=== PATIENT | male | born 1930 | race Caucasian/White ===

== ENCOUNTER 2022-06-11 19:08 | Inpatient (IN) ==
--- NOTE | 2022-06-11 19:47 | XRay Report ---
XR chest 1V portable HISTORY: 89 years-old Male recent chf dx acute shortness of breath COMPARISON: Chest radiograph 07/27/2018 TECHNIQUE: Portable AP view of the chest FINDINGS: Cardiac silhouette is enlarged. Pulmonary vascular congestion with reticular interstitial coarsening, similar to prior. No pneumothorax. Unchanged blunting of the costophrenic angles. Degenerative santo es of the shoulders and spine. IMPRESSION: Cardiomegaly with pulmonary vascular congestion and mild diffuse reticular interstitial c oarsening, similar to prior. Findings are likely chronic, however mild interstitial pulmonary edema c ould appear similarly. ACT 112: Negative or not required by law. The above report was generated using voice recognition software. It may contain grammatical, syntax o r spelling errors. Electronically signed by: Roque Brink M.D. 06/11/2022 7:45 PM
[2022-06-11 19:55] LABS: Basophils # (auto) 0.03 K/uL (0-0.2); Basophils % (auto) 0.2 %; Hematocrit (blood only) 42.7 % (40.1-51.0); Hemoglobin 14.6 g/dl (14.0-18.0); Immature Granulocytes # (auto) 0.07 K/uL (0.00-0.02); Immature Granulocytes % (auto) 0.5 %; Lymphocytes # (auto) 2.08 K/uL (1.2-3.4); Lymphocytes % (auto) 13.5 %; Mean Corpuscular Hemoglobin 30.2 pg (25.0-34.0); Mean Corpuscular Hgb Conc 34.2 g/dL (32.0-36.0); Mean Corpuscular Volume 88.2 fL (80.0-100.0); Mean Platelet Volume 11.2 fL (9.4-12.4); Monocytes # (auto) 1.14 K/uL (0.24-0.82); Monocytes % (auto) 7.4 %; Neutrophils # (auto) 12.06 K/uL (1.4-6.5); Neutrophils % (auto) 78.4 %; Platelet Count 201 K/uL (130-400); RDW Coefficient of Variation 13.8 % (11.5-14.5); RDW Standard Deviation 44.2 fL (36.4-46.3); Red Blood Count 4.84 M/uL (4.63-6.08); White Blood Count 15.38 K/ul (4.8-10.8)
[2022-06-11 20:08] LABS: Partial Thromboplastin Time 28.2 Seconds (21.0-31.0); Prothrombin Time 11.1 Seconds (9.0-12.0)
[2022-06-11 20:22] LABS: Troponin I High Sensitivity 153.7 pg/ml (0-20)
[2022-06-11 20:27] LABS: Albumin Globulin Ratio 0.9 (0.9-2); Albumin Level 3.2 gm/dl (3.4-5.0); BUN Creatinine Ratio 18.5 (10-20); Bilirubin,Total 2.2 mg/dl (0.2-1.0); Calcium 8.9 mg/dl (8.5-10.1); Creatinine Clr Calc Pharmacy 42.3 ml/min; Est GFR (African American) 56.1 ml/min; Est GFR (Non-African American) 48.4 ml/min; Globulin 3.7 gm/dl (2.5-4.0); Potassium 3.9 mmol/L (3.5-5.1); Total Protein 6.9 gm/dl (6.0-8.3)
[2022-06-11 20:57] LABS: Appearance Urine Clear (Clear); Bacteria Urine Automated Negative (Negative); Bilirubin Urine Negative (Negative); Blood Urine 3+ (Negative); Color Urine Dark Yellow; Epithelial Cell Urine Auto 20-30 /lpf (0-5); Glucose Urine UA Negative (Negative); Ketones Urine Trace (Negative); Leukocyte Esterase Urine Trace (Negative); Nitrite Urine Negative (Negative); Protein Urine 2+ (Negative); RBC Urine Automated >30 /hpf (0-4); Specific Gravity Urine 1.023 (1.000-1.030); Urobilinogen Urine Negative (Negative); pH Urine 6.5 (4.5-7.5)
--- NOTE | 2022-06-11 21:47 | Emergency Department Note ---
Impression & Plan Fall, Dizziness, Near syncope ED Provider Note Provider: Tristan Leblanc MD DATE OF SERVICE: 06/11/2022 CHIEF COMPLAINT: Fall, dizzy HISTORY OF PRESENT ILLNESS: Patient is a 89-year-old gentleman history of atrial tachycardia, chronic stenosis, TIA in the past presenting today after a fall. P atient states that he fell upon walking into the bathroom to the ground but did not strike his head. Could not get up and had to call EMS. Patient states he has had some near syncopal episodes in the past several weeks. Denies palpitations or chest pain. Denies shortness of breath. Patient states he has scraped his knees and right mancilla a little bit but denies significant injury. Denies significant back pain or injury to the extremities. REVIEW OF SYSTEMS: A total of 10 review of systems was obtained and negative except as stated above in the HPI. PAST MEDICAL HISTORY: As noted above MEDICATIONS: Reviewed home medication list SOCIAL HISTORY: Former smoker PHYSICAL EXAM: GENERAL: alert and oriented in no acute distress on stretcher Head: normocephalic and atraumatic EYES: No injection, discharge or icterus. PERRL, EOMI. NECK: Trachea midline. Supple subcu midline tenderness. ENT: Mucous membranes pink and moist. LUNGS: Airway patent. No retractions. Breath sounds clear with good air entry bilaterally. HEART: Irregular rate and rhythm. No chest wall tenderness ABDOMEN: Soft and non-tender, without guarding or rebound. SKIN: Acyanotic, warm, dry, without rashes EXTREMITIES: Some slight abrasions to the bilateral lower knees and right mancilla. Slight edema of the right mancilla. NEUROLOGICAL: No focal deficits. No aphasia. No facial droop or slurred speech. Normal strength and tone in the extremities. Sensation to gross touch normal. Ambulatory. EK bpm believe first-degree AV block with frequent PVCs. No clear acute ST segment elevation with some nonspecific anterior T wave changes. QTC 539. CONTINUOUS CARDIAC MONITORING: was ordered and showed a heart rate of 80s-100s bpm in first-degree AV block frequent PVCs. GCS 15. Patient's laboratory studies and imaging reviewed. Differential includes Infection, dehydration, metabolic abnormality, hypo/hyperg lycemia, electrolyte disturbance, anemia, hypoxia, cardiac sources, intracerebral event, toxicologic, neurologic, as well as other pathologies. IMPRESSION/MEDICAL DECISION MAKING: Possible near syncopal events. Does not sound orthostatic in nature of his falls Denies palpitation history. No numbness or tingling at this time. Patient with some chronic leukocytosis on review of old labs. Stable renal function. Urinalysis not indicative of infection at this time. Some troponin elevation on the high-sensitivity scale. Has a slight troponin on the old scale. Unsure if this totally related strain or if chronic on high sensitivity scale. Does describe some near syncopal events. No LOC reported. CT is also questioning a possible infarct recommended further MRI. Discussed with the pat erin. Does have some cardiac arrhythmias/PVCs on telemetry here. Feel that further cardiac monitoring given his symptoms would be indicated at this time as well. Patient in agreement. Hospitalist contacted. Given a dose of aspirin. We will complete CT angiograms to evaluate vascular is a history of carotid stenosis. DIAGNOSIS: Near syncope, dizziness, fall, elevated troponin DISPOSITION: Hospitalist will evaluate Preliminary Findings Only See Final Report For Complete Findings CT HEAD: Moderate brain volume loss. Moderate chronic ischemic changes. Small ovoid shaped area of low attenuation in the mid latoya estimated to measure 11 mm transverse. No mass or hemorrhage. Sinuses, mastoids and the bones are intact. Comparison brain MRI July 28, 2018. Impression: Indeterminate changes of the brainstem. An acute to subacute infarct cannot be excluded. Recommend brain MRI for further evaluation Radiologist: Nirmal Zamarripa M.D. Study ready at 21:37 and initial results transmitted at 21:42 Preliminary Findings Only See Final Report For Complete Findings CTA HEAD: No aneurysm or large vessel occlusion. Bilateral V4 vertebral atherosclerosis and approximately 50% stenosis. Atherosclerosis bilateral cavernous ICA, less than 50% stenosis. Radiologist: Qian Hall M.D. Study ready at 23:47 and initial results transmitted at 23:56 Preliminary Findings Only See Final Report For Complete Findings CTA NECK: Moderate to severe aortic atherosclerosis. Atherosclerosis right proximal ICA, results in 70-80% stenosis axial series 4 im age 241. Left proximal ICA stenosis 50-60%, axial series 4 image 209. Distal ICA vessels normal in caliber. Patent bilateral vertebral arteries, codominant. Radiologist: Qian Hall M.D. Study ready at 23:48 and initial results transmitted at 00:10 Past Med/Surg History Medical History (Updated 06/11/22 @ 23:06 by Darnell Thurston MD) Carotid arterial disease Diabetes HLD (hyperlipidemia) HTN (hypertension) Moderate calcific aortic stenosis Surgical History S/P laparoscopic cholecystectomy Social History Smoking Status: Former smoker Hx Alcohol Use: No Hx Substance Use: No Preferred Language: [place] Communication Ability: Effective Vocational Aide Required: Yes Beliefs That Will Affect Care: None Current Living Situation: Alone Current Living Situation Comment: apartment Feels Safe at Home: Yes Safety Concerns: Feels Safe At This Time Assistive Devices: Glasses and Walker Allergies Allergies Allergy/AdvReac Type Severity Reaction Status Date / Time No Known Allergies Allergy Unknown Verified 06/11/22 22:06 Home Meds Home Medications Medication Instructions Recorded Confirmed atenolol 25 mg tablet 12.5 mg PO DAILY 06/11/22 06/11/22 atorvastatin 40 mg tablet 40 mg PO QAM 06/11/22 06/11/22 finasteride 5 mg tablet 5 mg PO DAILY 06/11/22 06/11/22 folic acid 0.8 mg capsule 0.8 mg PO DAILY 06/11/22 06/11/22 furosemide 20 mg tablet 20 mg PO MOWEFR 06/11/22 06/11/22 glipizide 2.5 mg tablet, extended 2.5 mg PO QAM 06/11/22 06/11/22 release 24 hr levothyroxine 50 mcg tablet 50 mcg PO QAM 06/11/22 06/11/22 metformin 500 mg tablet 500 mg PO BIDM 06/11/22 06/11/22 potassium chloride 10 mEq 10 meq PO MOWEFR 06/11/22 06/11/22 tablet,extended release(part/cryst) Results & Data (ED) Vital Signs Vital Signs - 24 hr 06/11/22 19:25 06/11/22 19:20 06/11/22 19:02 Temperature 36.7 C Temperature Source Oral Pulse Rate 100 H Pulse Rate from SpO2 Sensor Respiratory Rate 18 Respiratory Depth Normal Blood Pressure 115/81 Blood Pressure Mean 92 Pulse Oximetry 93 93 Oxygen Delivery Method Room Air Room Air Room Air Sepsis Recent Fever Within 48 Hours No Sepsis New/Unexplained Change in Mental Status No Sepsis Action Taken by Nursing No Action Required 06/11/22 19:14 06/11/22 19:20 06/11/22 19:30 Temperature Temperature Source Pulse Rate 102 H 100 H Pulse Rate from SpO2 Sensor 102 H 92 H Respiratory Rate 18 21 Respiratory Depth Blood Pressure 113/72 Blood Pressure Mean 85 Pulse Oximetry 97 95 Oxygen Delivery Method Sepsis Recent Fever Within 48 Hours Sepsis New/Unexplained Change in Mental Status Sepsis Action Taken by Nursing 06/11/22 19:30 06/11/22 19:40 06/11/22 19:50 Temperature Temperature Source Pulse Rate 96 H 95 H 99 H Pulse Rate from SpO2 Sensor 46 L 89 97 H Respiratory Rate 25 H 19 25 H Respiratory Depth Blood Pressure Blood Pressure Mean Pulse Oximetry 93 94 94 Oxygen Delivery Method Sepsis Recent Fever Within 48 Hours Sepsis New/Unexplained Change in Mental Status Sepsis Action Taken by Nursing 06/11/22 20:00 06/11/22 20:01 06/11/22 20:01 Temperature Temperature Source Pulse Rate 97 H 94 H Pulse Rate from SpO2 Sensor 47 L 61 Respiratory Rate 23 27 H Respiratory Depth Blood Pressure 121/62 Blood Pressure Mean 81 Pulse Oximetry 93 92 Oxygen Delivery Method Sepsis Recent Fever Within 48 Hours Sepsis New/Unexplained Change in Mental Status Sepsis Action Taken by Nursing 06/11/22 20:10 06/11/22 20:20 06/11/22 20:23 Temperature Temperature Source Pulse Rate 94 H 91 H Pulse Rate from SpO2 Sensor 98 H Respiratory Rate 25 H 16 Respiratory Depth Blood Pressure 105/72 Blood Pressure Mean 83 Pulse Oximetry 95 Oxygen Delivery Method Sepsis Recent Fever Within 48 Hours Sepsis New/Unexplained Change in Mental Status Sepsis Action Taken by Nursing 06/11/22 20:23 06/11/22 20:30 06/11/22 20:30 Temperature Temperature Source Pulse Rate 92 H 91 H Pulse Rate from SpO2 Sensor Respiratory Rate 16 22 Respiratory Depth Blood Pressure 124/64 Blood Pressure Mean 84 Pulse Oximetry Oxygen Delivery Method Sepsis Recent Fever Within 48 Hours Sepsis New/Unexplained Change in Mental Status Sepsis Action Taken by Nursing 06/11/22 20:40 06/11/22 21:09 06/11/22 21:10 Temperature Temperature Source Pulse Rate 86 123 H 98 H Pulse Rate from SpO2 Sensor 100 H 99 H Respiratory Rate 24 20 Respiratory Depth Blood Pressure Blood Pressure Mean Pulse Oximetry 97 97 Oxygen Delivery Method Sepsis Recent Fever Within 48 Hours Sepsis New/Unexplained Change in Mental Status Sepsis Action Taken by Nursing 06/11/22 21:11 06/11/22 21:11 06/11/22 21:20 Temperature Temperature Source Pulse Rate 101 H 92 H Pulse Rate from SpO2 Sensor 99 H 86 Respiratory Rate 20 19 Respiratory Depth Blood Pressure 169/96 H Blood Pressure Mean 120 Pulse Oximetry 100 96 Oxygen Delivery Method Sepsis Recent Fever Within 48 Hours Sepsis New/Unexplained Change in Mental Status Sepsis Action Taken by Nursing 06/11/22 21:30 06/11/22 21:30 06/11/22 21:40 Temperature Temperature Source Pulse Rate 90 89 Pulse Rate from SpO2 Sensor 89 88 Respiratory Rate 22 26 H Respiratory Depth Blood Pressure 136/78 Blood Pressure Mean 97 Pulse Oximetry 99 96 Oxygen Delivery Method Sepsis Recent Fever Within 48 Hours Sepsis New/Unexplained Change in Mental Status Sepsis Action Taken by Nursing 06/11/22 21:50 06/11/22 22:00 06/11/22 22:00 Temperature Temperature Source Pulse Rate 89 86 Pulse Rate from SpO2 Sensor 86 78 Respiratory Rate 24 20 Respiratory Depth Blood Pressure 106/53 L Blood Pressure Mean 70 Pulse Oximetry 98 96 Oxygen Delivery Method Sepsis Recent Fever Within 48 Hours Sepsis New/Unexplained Change in Mental Status Sepsis Action Taken by Nursing 06/11/22 22:10 06/11/22 22:20 06/11/22 22:30 Temperature Temperature Source Pulse Rate Pulse Rate from SpO2 Sensor 90 92 H 88 Respiratory Rate Respiratory Depth Blood Pressure Blood Pressure Mean Pulse Oximetry 94 96 99 Oxygen Delivery Method Sepsis Recent Fever Within 48 Hours Sepsis New/Unexplained Change in Mental Status Sepsis Action Taken by Nursing 06/11/22 22:31 06/11/22 22:31 06/11/22 22:40 Temperature Temperature Source Pulse Rate 88 Pulse Rate from SpO2 Sensor 88 Respiratory Rate Respiratory Depth Blood Pressure 88/65 L Blood Pressure Mean 72 Pulse Oximetry 99 Oxygen Delivery Method Sepsis Recent Fever Within 48 Hours Sepsis New/Unexplained Change in Mental Status Sepsis Action Taken by Nursing Laboratory Data Result diagrams: 06/11/22 19:20 06/11/22 19:20 Lab Results 06/11/22 06/11/22 06/11/22 Range/Units 19:20 19:20 19:20 WBC 15.38 H (4.8-10.8) K/ul RBC 4.84 (4.63-6.08) M/uL Hgb 14.6 (14.0-18.0) g/dl Hct 42.7 (40.1-51.0) % MCV 88.2 (80.0-100.0) fL MCH 30.2 (25.0-34.0) pg MCHC 34.2 (32.0-36.0) g/dL RDW Std Deviation 44.2 (36.4-46.3) fL RDW Coeff of [place] 13.8 (11.5-14.5) % Plt Count 201 (130-400) K/uL MPV 11.2 (9.4-12.4) fL Immature Gran % (Auto) 0.5 % Neut % (Auto) 78.4 % Lymph % (Auto) 13.5 % [place] % (Auto) 7.4 % Eos % (Auto) 0.0 % Baso % (Auto) 0.2 % Neut # (Auto) 12.06 H (1.4-6.5) K/uL Lymph # (Auto) 2.08 (1.2-3.4) K/uL [place] # (Auto) 1.14 H (0.24-0.82) K/uL Eos # (Auto) 0.00 (0-0.50) K/uL Baso # (Auto) 0.03 (0-0.2) K/uL Immature Gran # (Auto) 0.07 H (0.00-0.02) K/uL PT 11.1 (9.0-12.0) Seconds INR 1.0 (0.9-1.1) APTT 28.2 (21.0-31.0) Seconds PTT Ratio 1.0 Sodium 135 L (136-145) mmol/L Potassium 3.9 (3.5-5.1) mmol/L Chloride 98 (98-107) mmol/L Carbon Dioxide 26 (21-32) mmol/L Anion Gap 11 (3-11) BUN 24 H (6-23) mg/dl Creatinine 1.30 (0.6-1.4) mg/dl Est Cr Clr Drug Dosing 42.3 ml/min Est GFR ( Amer) 56.1 ml/min Est GFR (Non-Af Amer) 48.4 ml/min BUN/Creatinine Ratio 18.5 (10-20) Glucose 171 H (70-99(Fasting)) mg/dl Calcium 8.9 (8.5-10.1) mg/dl Total Bilirubin 2.2 H (0.2-1.0) mg/dl AST 15 (13-39) U/L ALT 11 (7-52) U/L Alkaline Phosphatase 84 (34-104) U/L Troponin I High Sens 153.7 H* (0-20) pg/ml Total Protein 6.9 (6.0-8.3) gm/dl Albumin 3.2 L (3.4-5.0) gm/dl Globulin 3.7 (2.5-4.0) gm/dl Albumin/Globulin Ratio 0.9 (0.9-2) TSH (0.300-4.500) uIu/ml Urine Color Urine Appearance (Clear) Urine pH (4.5-7.5) Ur Specific [place] (1.000-1.030) Urine Protein (Negative) Urine Glucose (UA) (Negative) Urine Ketones (Negative) Urine Blood (Negative) Urine Nitrite (Negative) Urine Bilirubin (Negative) Urine Urobilinogen (Negative) Ur Leukocyte Esterase (Negative) Urine WBC (Auto) (0-5) /hpf Urine RBC (Auto) (0-4) /hpf U Hyaline Cast (Auto) (0-5) /lpf U Epithel Cells (Auto) (0-5) /lpf Urine Bacteria (Auto) (Negative) SARS-CoV-2, RNA, NAAT (NEGATIVE) 06/11/22 06/11/22 06/11/22 Range/Units 19:20 20:18 22:40 WBC (4.8-10.8) K/ul RBC (4.63-6.08) M/uL Hgb (14.0-18.0) g/dl Hct (40.1-51.0) % MCV (80.0-100.0) fL MCH (25.0-34.0) pg MCHC (32.0-36.0) g/dL RDW Std Deviation (36.4-46.3) fL RDW Coeff of [place] (11.5-14.5) % Plt Count (130-400) K/uL MPV (9.4-12.4) fL Immature Gran % (Auto) % Neut % (Auto) % Lymph % (Auto) % [place] % (Auto) % Eos % (Auto) % Baso % (Auto) % Neut # (Auto) (1.4-6.5) K/uL Lymph # (Auto) (1.2-3.4) K/uL [place] # (Auto) (0.24-0.82) K/uL Eos # (Auto) (0-0.50) K/uL Baso # (Auto) (0-0.2) K/uL Immature Gran # (Auto) (0.00-0.02) K/uL PT (9.0-12.0) Seconds INR (0.9-1.1) APTT (21.0-31.0) Seconds PTT Ratio Sodium (136-145) mmol/L Potassium (3.5-5.1) mmol/L Chloride (98-107) mmol/L Carbon Dioxide (21-32) mmol/L Anion Gap (3-11) BUN (6-23) mg/dl Creatinine (0.6-1.4) mg/dl Est Cr Clr Drug Dosing ml/min Est GFR ( Amer) ml/min Est GFR (Non-Af Amer) ml/min BUN/Creatinine Ratio (10-20) Glucose (70-99(Fasting)) mg/dl Calcium (8.5-10.1) mg/dl Total Bilirubin (0.2-1.0) mg/dl AST (13-39) U/L ALT (7-52) U/L Alkaline Phosphatase (34-104) U/L Troponin I High Sens (0-20) pg/ml Total Protein (6.0-8.3) gm/dl Albumin (3.4-5.0) gm/dl Globulin (2.5-4.0) gm/dl Albumin/Globulin Ratio (0.9-2) TSH 4.101 (0.300-4.500) uIu/ml Urine Color Dark Yellow Urine Appearance Clear (Clear) Urine pH 6.5 (4.5-7.5) Ur Specific [place] 1.023 (1.000-1.030) Urine Protein 2+ H (Negative) Urine Glucose (UA) Negative (Negative) Urine Ketones Trace H (Negative) Urine Blood 3+ H (Negative) Urine Nitrite Negative (Negative) Urine Bilirubin Negative (Negative) Urine Urobilinogen Negative (Negative) Ur Leukocyte Esterase Trace H (Negative) Urine WBC (Auto) 1-5 (0-5) /hpf Urine RBC (Auto) >30 H (0-4) /hpf U Hyaline Cast (Auto) 5-10 H (0-5) /lpf U Epithel Cells (Auto) 20-30 H (0-5) /lpf Urine Bacteria (Auto) Negative (Negative) SARS-CoV-2, RNA, NAAT NEGATIVE (NEGATIVE) Administered Medications Lactated Ringer's (Lr) 1,000 mls @ 250 mls/hr IV .Q4H ONE Stop: 06/12/22 02:44 Last Admin: 06/12/22 00:31 Dose: 250 mls/hr Documented By: YASH Discontinued Medications Aspirin (Aspirin Chew 324 Mg) 324 mg PO NOW STA Stop: 06/11/22 22:08 Last Admin: 06/11/22 22:38 Dose: 324 mg Documented By: IVET Gadobutrol (Gadobutrol 65ml Vial) 8.5 ml IV ONCE ONE Stop: 06/11/22 23:49 Last Admin: 06/11/22 23:48 Dose: 8.5 ml Documented By: ANGELO Ioversol (Optiray 300 500ml) 114 ml IV ONCE ONE Stop: 06/11/22 23:01 Last Admin: 06/11/22 23:01 Dose: 114 ml Documented By: [facility] Imaging Data Radiologist's Impression: Chest X-Ray 06/11/22 19:32 XR chest 1V portable HISTORY: 89 years-old Male recent chf dx acute shortness of breath COMPARISON: Chest radiograph 07/27/2018 TECHNIQUE: Portable AP view of the chest FINDINGS: Cardiac silhouette is enlarged. Pulmonary vascular congestion with reticular interstitial coarsening, similar to prior. No pneumothorax. Unchanged blunting of the costophrenic angles. Degenerative changes of the shoulders and spine. IMPRESSION: Cardiomegaly with pulmonary vascular congestion and mild diffuse reticular interstitial coarsening, similar to prior. Findings are likely chronic, however mild interstitial pulmonary edema could appear similarly. ACT 112: Negative or not required by law. The above report was generated using voice recognition software. It may contain grammatical, syntax or spelling errors. Electronically signed by: Roque Brink M.D. 06/11/2022 7:45 PM Discharge Plan Visit Data Chief Complaint: Dizziness ED Provider: Tristan Leblanc Discharge Problem: Fall, Dizziness, Near syncope Patient Disposition: Admitted As Inpatient Discharge Instructions Interventions: ED Discharge Assessment Last Done: 06/12/22 00:09
[2022-06-11] MEDS ORDERED: ASPIRIN CHEW 324 MG PO STA (22:07)
[2022-06-11] MEDS ORDERED: POLYETHYLENE (MIRALAX) 17 GM PACK PO PRN (22:42)
[2022-06-11] MEDS ORDERED: ACETAMINOPHEN 325 MG TAB PO PRN (22:42)
[2022-06-11] MEDS ORDERED: NITROGLYCERIN SL 0.4 MG/TAB TAB SL PRN (22:42)
[2022-06-11] MEDS ORDERED: LACTATED RINGER'S 1,000 ML IV ONE (22:45)
[2022-06-11] MEDS ORDERED: OPTIRAY 300 500mL IV ONE (23:00)
--- NOTE | 2022-06-11 23:14 | History & Physical Report ---
Date of Service June 11, 2022 Assessment & Plan (1) Fall: Plan: - does not appear syncopal or presyncopal based on history - however, given history of and carotid stenosis will get CTA neck, TTE to evaluate progression - MRI ordered as CT head noted lesion in latoya - not likely acute infarct as patient's exam is unremarkable and nonfocal - mabye orthostatic or dehydration related as UA indicates and patient is on diuretic - RLE swelling R>L - reports outpatient negative Duplex - ordered here again - will hold BP meds and diuretic for now - orthostatic vitals - IV hydration - telemetry monitoring - consider cardiology vs neurology vs vascular sugery consult pending results of above exams (2) Carotid arterial disease: Plan: - noted in 2018 - has been asymptomatic since 2018 when he had some falls at that time - CTA head and neck pending from ED - consider vascular surgery consult if significant progression (3) Aortic stenosis: Plan: - could be contributing factor to falls - h/o of mild to moderate 2018 - IV hydration as patient is likely somewhat dehydrated and preload dependent - TTE ordered to evaluate - Cardiology consult (4) Elevated troponin: Plan: - elevated to 157, has had benign elevation in the past - ECG without ischemic changes - denies chest pain, shortness of breath, n/v - will cycle troponin, ECG - s/p ASA in ED - continue statin - telemetry monitoring - Cardiology consult (5) Leukocytosis: Plan: - unclear etiology - does not seem to have infectious symptoms - CXR without consolidation - UA negative for infection - had leukocytosis in the past without evidence of infection - will monitor for now off abx (6) HLD (hyperlipidemia): Plan: - continue statin (7) HTN (hypertension): Plan: - hold BP meds for now - orthostatics as above (8) DM2 (diabetes mellitus, type 2): Plan: - on metformin at home - hold inpatient - ISS for now - FSG AC+HS - diabetic diet (9) Hypothyroidism: Plan: - check TSH - continue levothyroxine (10) Hematuria: Plan: - noted on UA - may need outpatient work up Plan DVT ppx: heparin SC Code Status: Full Code Dispo: telemetry Darnell Thurston MD Hospital Medicine Admission and Anticipated Discharge Date Admission Date: 06/11/2022 History of Present Illness Chief Complaint: fall Primary Care Provider: Jaylan Lara MD The patient is an 89 year old man with pmh HLD, BPH, DM2, hypothyroidism, h/o recurrent falls, Carotid artery stenosis R>L (2018), mild to moderate who presented after a fall from standing while walking into his bathroom. He says that he walked into his bathroom and just feel to the ground. He reports no LOC, dizziness, light headedness, chest pain, palpitations, nausea or vomiting prior to the fall. He denies tripping or feeling weakness in his legs prior to the isi nt. He reports a similar episode about 1 week ago where he walked into the bathroom and started to fall, tried grabbing a towel railing that gave out and he fell. He denies hitting his head. For this episode, he was unable to get up off the floor and so crawled to the door and asked a neighbor for help, who called 911 and he was brought to the ED. At baseline, he has good functional status and walks to his local library 3 blocks almost every day without stopping for shortness of breath or chest pain. He current is denying any symptoms. He denies a history of CVA or LA, or HF. He does report 3 weeks of diarrhea but only on Friday, but reports no diarrhea for at least a week and a half. He denies change in appetite but reports not eating since about 11AM because he came to the hospital. Reports swelling in his right leg recently but his PCP ordered a duplex US that he reports did not show evidence of DVT. Denies any other symptoms of fever or chills, n/v/d, abdominal pain, dysuria, cough, shortness of breath, sick contacts, rashes. In the ED, vitals were significant for HR 100, BP 80-90s/60s after initial BP 115/81. Labs were significant for WBC 15, Na 135, BUN 24, Cr 1.3 (at baseline 1.3), tbili 2.2, troponin 157, UA with evidence of dehydration and hematuria. CT head was negative for hemorrhage, but showed small ovoid shaped area of low attenuation in mid latoya which could indicate acute or subacute infarct that cannot be excluded and recommend brain MRI. He was admitted to medicine for further work up and management. Allergies Allergy/AdvReac Type Severity Reaction Status Date / Time No Known Allergies Allergy Unknown Verified 06/11/22 22:06 Home Medications Medication Instructions Recorded Confirmed Type atenolol 25 mg tablet 12.5 mg PO DAILY 06/11/22 06/11/22 History atorvastatin 40 mg tablet 40 mg PO QAM 06/11/22 06/11/22 History finasteride 5 mg tablet 5 mg PO DAILY 06/11/22 06/11/22 History folic acid 0.8 mg capsule 0.8 mg PO DAILY 06/11/22 06/11/22 History furosemide 20 mg tablet 20 mg PO MOWEFR 06/11/22 06/11/22 History glipizide 2.5 mg tablet, extended 2.5 mg PO QAM 06/11/22 06/11/22 History release 24 hr levothyroxine 50 mcg tablet 50 mcg PO QAM 06/11/22 06/11/22 History metformin 500 mg tablet 500 mg PO BIDM 06/11/22 06/11/22 History potassium chloride 10 mEq 10 meq PO MOWEFR 06/11/22 06/11/22 History tablet,extended release(part/cryst) Past Med/Surg History Medical History (Updated 06/11/22 @ 23:06 by Darnell Thurston MD) Carotid arterial disease Diabetes HLD (hyperlipidemia) HTN (hypertension) Moderate calcific aortic stenosis Surgical History S/P laparoscopic cholecystectomy Social History Smoking Status: Former smoker Hx Alcohol Use: No Hx Substance Use: No Preferred Language: Albanian Communication Ability: Effective Scrubber System Attendant Required: Yes Beliefs That Will Affect Care: None Current Living Situation: Alone Feels Safe at Home: Yes Assistive Devices: Glasses and Walker Review of Systems Review of Systems: All systems reviewed & are unremarkable except as noted in Subjective Physical Exam Constitutional: WD/WN, vitals as above Eyes: PERRL, conjunctivae normal, anicteric sclerae ENMT: external ear and nose normal, oropharynx normal Neck: trachea midline, no thyromegaly Respiratory: normal respiratory effort, lungs clear to auscultation Cardiovascular: Rate/Rhythm: regular rate and regular rhythm Heart Sounds: normal S1, normal S2 and + murmur (right upper sternal border, systolic murmur); no gallop and no cardiac rub Vessels: no JVD Gastrointestinal (Abdomen): normal bowel sounds, soft, nontender, no hepatosplenomegaly Musculoskeletal: no cyanosis or clubbing, extremities motor strength 5/5 R lower extremity with trace edema, no erythema Skin: no rashes, warm and dry Neurologic: patellar DTR's 2+ bilat, sensation intact and PERRL, EOMI, accommodation nl, no face palsy, no dysarthria Psychiatric: A+Ox3, euthymic affect Results & Data Results & Data ([facility]) Vital Signs (Past 12 Hours) Vital Signs Temp Pulse Resp BP Pulse Ox O2 Del Method 06/11/22 19:02 Room Air 06/11/22 19:20 93 Room Air 06/11/22 19:25 36.7 C 100 H 18 115/81 93 Room Air Laboratory Results Short CBC 06/11/22 Range/Units 19:20 WBC 15.38 H (4.8-10.8) K/ul Hgb 14.6 (14.0-18.0) g/dl Hct 42.7 (40.1-51.0) % Plt Count 201 (130-400) K/uL BMP 06/11/22 19:20 Sodium 135 L Potassium 3.9 Chloride 98 Carbon Dioxide 26 BUN 24 H Creatinine 1.30 Glucose 171 H Calcium 8.9 Liver Function 06/11/22 Range/Units 19:20 Total Bilirubin 2.2 H (0.2-1.0) mg/dl AST 15 (13-39) U/L ALT 11 (7-52) U/L Alkaline Phosphatase 84 (34-104) U/L Albumin 3.2 L (3.4-5.0) gm/dl Urine 06/11/22 Range/Units 20:18 Urine Color Dark Yellow Urine Appearance Clear (Clear) Urine pH 6.5 (4.5-7.5) Ur Specific [place] 1.023 (1.000-1.030) Urine Protein 2+ H (Negative) Urine Glucose (UA) Negative (Negative) Diagnostic Findings Chest X-Ray 06/11/22 19:32 XR chest 1V portable HISTORY: 89 years-old Male recent chf dx acute shortness of breath COMPARISON: Chest radiograph 07/27/2018 TECHNIQUE: Portable AP view of the chest FINDINGS: Cardiac silhouette is enlarged. Pulmonary vascular congestion with reticular interstitial coarsening, similar to prior. No pneumothorax. Unchanged blunting of the costophrenic angles. Degenerative changes of the shoulders and spine. IMPRESSION: Cardiomegaly with pulmonary vascular congestion and mild diffuse reticular interstitial coarsening, similar to prior. Findings are likely chronic, however mild interstitial pulmonary edema could appear similarly. ACT 112: Negative or not required by law. The above report was generated using voice recognition software. It may contain grammatical, syntax or spelling errors. Electronically signed by: Roque Brink M.D. 06/11/2022 7:45 PM Medications Administered Current Inpatient Medications Acetaminophen (Acetaminophen 325 Mg Tab) 650 mg PO Q4H PRN PRN Reason: Pain or Fever Stop: 07/11/22 22:41 Atorvastatin Calcium (Atorvastatin 40 Mg Tab) 40 mg PO QAM [facility] Stop: 07/12/22 08:59 Finasteride (Finasteride 5 Mg Tab) 5 mg PO QAM [facility] Stop: 07/12/22 08:59 Folic Acid (Folic Acid 1 Mg Tab) 1 mg PO QAM [facility] Stop: 07/12/22 08:59 Lactated Ringer's (Lr) 1,000 mls @ 250 mls/hr IV .Q4H ONE Stop: 06/12/22 02:44 Levothyroxine Sodium (Levothyroxine Sodium 50 Mcg Tablet) 50 mcg PO DAILYBB ANGELICA Stop: 07/12/22 06:29 Nitroglycerin (Nitroglycerin Sl 0.4 Mg/Tab Tab) 0.4 mg SL Q5M PRN PRN Reason: Chest Pain Stop: 07/11/22 22:41 Polyethylene Glycol (Polyethylene (Miralax) 17 Gm Pack) 17 gm PO DAILY PRN PRN Reason: Constipation Stop: 07/11/22 22:41 Code Status & VTE Plan Code Status Full Code VTE Prophylaxis Plan VTE Prophylaxis will be ordered: Yes
[2022-06-11] MEDS ORDERED: GADOBUTROL 65ML VIAL IV ONE (23:48)
[2022-06-12 02:04] LABS: Magnesium 1.9 mg/dl (1.7-2.4); Phosphorus 3.7 mg/dl (2.5-4.9)
[2022-06-12 02:10] LABS: Troponin I High Sensitivity 260.6 pg/ml (0-20)
[2022-06-12] MEDS ORDERED: Heparin IV Adult Wt-Based Low-Dose WITH Bolus Protocol IV SCH (02:31)
[2022-06-12] MEDS ORDERED: HEPARIN SODIUM/DEXTROSE 25,000 UNITS/500 ML BAG IV SCH (02:45)
[2022-06-12] MEDS ORDERED: HEPARIN SOD (PORCINE) 1000 UNIT/ML IV ONE (03:00)
[2022-06-12] MEDS: LEVOTHYROXINE SODIUM 50 MCG TABLET PO SCH (05:22)
[2022-06-12] MEDS ORDERED: HEPARIN SOD 5,000 UNIT/0.5 ML VIAL SQ SCH (06:00)
[2022-06-12 06:57] LABS: Basophils # (auto) 0.02 K/uL (0-0.2); Basophils % (auto) 0.2 %; Eosinophils # (auto) 0.06 K/uL (0-0.50); Eosinophils % (auto) 0.5 %; Hematocrit (blood only) 41.2 % (40.1-51.0); Hemoglobin 13.8 g/dl (14.0-18.0); Immature Granulocytes # (auto) 0.09 K/uL (0.00-0.02); Immature Granulocytes % (auto) 0.8 %; Lymphocytes # (auto) 2.07 K/uL (1.2-3.4); Lymphocytes % (auto) 17.4 %; Mean Corpuscular Hemoglobin 29.9 pg (25.0-34.0); Mean Corpuscular Hgb Conc 33.5 g/dL (32.0-36.0); Mean Corpuscular Volume 89.4 fL (80.0-100.0); Mean Platelet Volume 10.9 fL (9.4-12.4); Monocytes # (auto) 0.96 K/uL (0.24-0.82); Monocytes % (auto) 8.1 %; Neutrophils # (auto) 8.67 K/uL (1.4-6.5); Platelet Count 166 K/uL (130-400); RDW Coefficient of Variation 13.7 % (11.5-14.5); RDW Standard Deviation 44.5 fL (36.4-46.3); Red Blood Count 4.61 M/uL (4.63-6.08); White Blood Count 11.87 K/ul (4.8-10.8)
--- NOTE | 2022-06-12 07:13 | CT Scan Report ---
CT OF THE HEAD WITHOUT CONTRAST CLINICAL HISTORY: dizziness COMPARISON STUDY: MRI of the brain July 28, 2018. Head CT July 27, 2018. CT DOSE: 1074.96 mGy.cm TECHNIQUE: Helical axial images of the head were obtained without IV contrast. Automated exposure con trol was utilized for the study. A dose lowering technique was utilized adhering to the principles o f ALARA. FINDINGS: No acute intracranial hemorrhage, midline shift or mass effect is present. Extensive white matter hypodensities have progressed. These favor small vessel disease. Hypodensity within the latoya m ay represent small vessel disease. The ventricular system is unremarkable. The basal cisterns are pat ent. No extra-axial collections are present. There are no findings to suggest acute dural sinus throm bosis or acute territorial infarct. No significant calvarial abnormalities are present. Visualized po rtions of the sinuses and mastoid air cells are clear. IMPRESSION: No acute intracranial findings. Extensive small vessel disease. ACT 112: Negative or not required by law. Electronically signed by: Dariusz Powers M.D. 06/12/2022 7:11 AM
[2022-06-12 07:18] LABS: Albumin Globulin Ratio 0.9 (0.9-2); Bilirubin,Total 1.7 mg/dl (0.2-1.0); Calcium 8.6 mg/dl (8.5-10.1); Creatinine Clr Calc Pharmacy 47.8 ml/min; Est GFR (Non-African American) 56.1 ml/min; Globulin 3.4 gm/dl (2.5-4.0); Magnesium 1.8 mg/dl (1.7-2.4); Phosphorus 3.6 mg/dl (2.5-4.9); Potassium 3.5 mmol/L (3.5-5.1); Total Protein 6.4 gm/dl (6.0-8.3)
--- NOTE | 2022-06-12 07:18 | Ultrasound Report ---
RIGHT LOWER EXTREMITY VENOUS DOPPLER HISTORY: R>L swelling COMPARISON STUDY: None. FINDINGS: There is normal compressibility, flow, and augmentation within the right lower extremity de ep venous system. A 2.2 x 1.1 x 2.2 cm slightly complex popliteal cyst. IMPRESSION: No DVT within the right lower extremity ACT 112: Negative or not required by law. Electronically signed by: Hernesto Allen M.D. 06/12/2022 7:16 AM
[2022-06-12 07:35] LABS: INR 1.1 (0.9-1.1); Prothrombin Time 11.5 Seconds (9.0-12.0)
--- NOTE | 2022-06-12 08:22 | Magnetic Resonance Report ---
MRI OF THE BRAIN WITHOUT AND WITH IV CONTRAST CLINICAL HISTORY: abnormal CT findings COMPARISON STUDY: MRI of the brain July 28, 2018. Head CT and CTA of the head June 11, 2022. TECHNIQUE: Utilizing a 1.5 Kyung magnet and dedicated coil, multiplanar, multiecho imaging of the br ain was performed pre and postcontrast administration. IV administration of 8.5 mL of Gadavist contr ast was uneventful. FINDINGS: There are no foci of restricted diffusion to suggest acute infarct. No acute intracranial h emorrhage, midline shift or mass effect is present. Ventricular system is unremarkable. Basal cistern s are patent. There are no extra-axial collections. Flow-voids for the major intracranial vessels are present. There is no intracranial mass or pathologic enhancement. Extensive white matter T2 hyperint ense foci suggest small vessel disease. Minimal progression since MRI of July 28, 2018. The pontin e hypodensity shown on head CT performed earlier today was due to small vessel disease. Calvarial sig nal is within normal limits. IMPRESSION: 1. No acute intracranial findings. 2. Extensive small vessel disease. The pontine hypodensity on head CT was due to small vessel disease . 3. No intracranial mass or pathologic enhancement. ACT 112: Negative or not required by law. Electronically signed by: Dariusz Powers M.D. 06/12/2022 8:19 AM
--- NOTE | 2022-06-12 08:26 | CT Scan Report ---
NECK CTA HISTORY: dizzy, ?stroke, hx stenosis TECHNIQUE: Multiaxial CT images of the neck were performed following the intravenous administration o f contrast to evaluate the major cervical vessels. Maximum intensity projection images were also obta ined. All measurements were calculated based on NASCET criteria. A dose lowering technique was utili zed adhering to the principles of ALARA. COMPARISON STUDY: None. FINDINGS: The aortic arch and proximal great vessels are widely patent. There is moderate to severe calcified plaque within the bilateral carotid bifurcations. This results in 75% focal stenosis within the distal right common carotid artery and 60-70 % stenosis within the proximal right internal carot id artery and takeoff of the right external carotid artery. There is also up to 50% focal stenosis at the distal left common carotid artery and 50% stenosis within the proximal left internal carotid art alex. The bilateral mid to distal internal carotid arteries are patent. There is moderate left and mil d right focal narrowing within the bilateral V4 segments. The remaining cervical vertebral arteries a re widely patent. IMPRESSION: 1. Bilateral carotid bifurcation stenosis as described above due to the calcified plaque. 2. Mild right and moderate left focal narrowing within the V4 segments. 3. Please refer to same day head CT for further evaluation of the cerebral arteries. ACT 112: Negative or not required by law. Electronically signed by: Hernesto Allen M.D. 06/12/2022 8:23 AM
[2022-06-12] MEDS: FOLIC ACID 1 MG TAB PO SCH (08:45)
[2022-06-12] MEDS: ATORVASTATIN 40 MG TAB PO SCH (08:45)
[2022-06-12] MEDS: FINASTERIDE 5 MG TAB PO SCH (08:45)
--- NOTE | 2022-06-12 09:56 | CT Scan Report ---
CTA ANGIOGRAPHY OF THE HEAD CLINICAL HISTORY: dizzy, ?stroke COMPARISON STUDY: MRI of the brain July 28, 2018. Head CT July 27, 2018. TECHNIQUE: Helical axial images of the head were obtained following uneventful intravenous administr ation of 114 cc of Optiray. Sagittal and coronal reconstructions were viewed as well as maximal inten sity projections on an independent 3-D workstation. Automated exposure control was utilized for the study. A dose lowering technique was utilized adhering to the principles of ALARA. FINDINGS: Please note that the head CT will be reported separately. There is moderate calcified plaqu e within the bilateral cavernous carotids without significant stenosis. There is no central vessel oc clusion. There is no intracranial aneurysm. There is moderate stenosis of the intracranial portion of the left vertebral artery. There is mild stenosis of the intracranial portion of the right vertebral artery. Basilar artery is patent. Bilateral posterior cerebral arteries are patent. IMPRESSION: 1. No central vessel occlusion. No intracranial aneurysm. 2. Moderate stenosis of the intracranial portion of the left vertebral artery. 3. Moderate plaque within bilateral cavernous carotids without significant stenosis. ACT 112: Negative or not required by law. Electronically signed by: Dariusz Powers M.D. 06/12/2022 9:54 AM
[2022-06-12 10:42] LABS: Partial Thromboplastin Ratio 2.4
[2022-06-12 10:46] LABS: Partial Thromboplastin Time 65.5 Seconds (21.0-31.0)
--- NOTE | 2022-06-12 13:14 | Cardiology Consultation ---
Date of Consultation June 12, 2022 Assessment & Plan (1) Aortic stenosis: (2) DM2 (diabetes mellitus, type 2): (3) Fall: (4) Elevated troponin: Plan I think this patient had a mechanical fall. He does have some conduction disease with a sinus rhythm and a first-degree AV block along with some PVCs and left ventricular hypertrophy on his EKG. He also by my exam most likely does have some aortic stenosis. I do not believe that any additional cardiac work-up is indicated. The patient did not seriously hurt himself. Patient should get some physical therapy while he is in the hospital. I would continue with telemetry for now. History of Present Illness Attending Physician: Ming Montano MD History of Present Illness This is a elderly 89-year-old male patient who was in his usual state of health today and ambulating to the bathroom when he had a mechanical fall. He sustained no major injuries. He has no ongoing cardiac complaints. He has had no activity related chest pain or progressive shortness of breath. No orthopnea. No syncope or presyncope. Past medical history: 1.Acute decompensated diastolic congestive heart failure signs and symptoms 2.Severe calcified aortic valve stenosis, mild aortic regurgitation 3.Mild mitral stenosis. 4.Preserved LV systolic function. 5.Moderate bilateral internal carotid artery disease 6.History of transient ischemic attack in July 2018 7.Hypertension 8.Dyslipidemia 9.Type 2 diabetes mellitus with neuropathy, stage 3 chronic kidney disease 10.Secondary hyperparathyroidism 11.Hypothyroidism 12.BPH with LUTS 13.History of kidney stones 14.B12 deficiency 15.History of multiple falls Allergies Allergy/AdvReac Type Severity Reaction Status Date / Time No Known Allergies Allergy Unknown Verified 06/11/22 22:06 Home Medications Medication Instructions Recorded Confirmed Type atenolol 25 mg tablet 12.5 mg PO DAILY 06/11/22 06/11/22 History atorvastatin 40 mg tablet 40 mg PO QAM 06/11/22 06/11/22 History finasteride 5 mg tablet 5 mg PO DAILY 06/11/22 06/11/22 History folic acid 0.8 mg capsule 0.8 mg PO DAILY 06/11/22 06/11/22 History furosemide 20 mg tablet 20 mg PO MOWEFR 06/11/22 06/11/22 History glipizide 2.5 mg tablet, extended 2.5 mg PO QAM 06/11/22 06/11/22 History release 24 hr levothyroxine 50 mcg tablet 50 mcg PO QAM 06/11/22 06/11/22 History metformin 500 mg tablet 500 mg PO BIDM 06/11/22 06/11/22 History potassium chloride 10 mEq 10 meq PO MOWEFR 06/11/22 06/11/22 History tablet,extended release(part/cryst) Patient History Medical History Carotid arterial disease Diabetes HLD (hyperlipidemia) HTN (hypertension) Moderate calcific aortic stenosis Surgical History S/P laparoscopic cholecystectomy Social History Smoking Status: Former smoker Hx Alcohol Use: No Hx Substance Use: No Preferred Language: Cook Islander Communication Ability: Effective 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 All other 10 point review of systems are negative. Physical Exam Physical Exam: General: no acute distress and stated age Head: normocephalic, no masses, lesions, tenderness or abnormalities Eyes: conjunctiva are pink and non-injected, sclera clear Neck: supple, no adenopathy, no bruits, normal jugular venous pulse, no hepatojugular reflux Chest: normal shape and normal respiratory effort Lungs: clear to auscultation and percussion Cardiac Exam: - regular rate & rhythm, systolic murmur- normal S1, normal S2 Pulses: 2(+) throughout Abdomen: abdomen soft, non-tender, no abnormal masses and no hepatosplenomegaly Musculoskeletal: no gait disturbance, no joint inflammation, no deforming arthritis Extremities: no edema and no cyanosis Neuro: grossly normal exam Results & Data ([facility]) Vital Signs (Past 12 Hours) Vital Signs Temp Pulse Pulse Resp BP Pulse Ox Pulse Ox 06/12/22 11:25 98 06/12/22 09:02 76 06/12/22 07:51 36.6 C 79 18 143/77 H 98 06/12/22 04:00 36.6 C 86 20 164/99 H 97 O2 Del Method O2 Del Method 06/12/22 11:25 Room Air 06/12/22 09:02 06/12/22 07:51 Room Air 06/12/22 04:00 Room Air Laboratory Results Laboratory Results - last 24 hr 06/11/22 06/11/22 06/11/22 19:20 19:20 19:20 WBC 15.38 H RBC 4.84 Hgb 14.6 Hct 42.7 MCV 88.2 MCH 30.2 MCHC 34.2 RDW Std Deviation 44.2 RDW Coeff of Remberto 13.8 Plt Count 201 MPV 11.2 Immature Gran % (Auto) 0.5 Neut % (Auto) 78.4 Lymph % (Auto) 13.5 Yancey % (Auto) 7.4 Eos % (Auto) 0.0 Baso % (Auto) 0.2 Neut # (Auto) 12.06 H Lymph # (Auto) 2.08 Yancey # (Auto) 1.14 H Eos # (Auto) 0.00 Baso # (Auto) 0.03 Immature Gran # (Auto) 0.07 H PT 11.1 INR 1.0 APTT 28.2 PTT Ratio 1.0 Sodium 135 L Potassium 3.9 Chloride 98 Carbon Dioxide 26 Anion Gap 11 BUN 24 H Creatinine 1.30 Est Cr Clr Drug Dosing 42.3 Est GFR ( Amer) 56.1 Est GFR (Non-Af Amer) 48.4 BUN/Creatinine Ratio 18.5 Glucose 171 H Calcium 8.9 Phosphorus Magnesium Total Bilirubin 2.2 H AST 15 ALT 11 Alkaline Phosphatase 84 Troponin I High Sens 153.7 H* Total Protein 6.9 Albumin 3.2 L Globulin 3.7 Albumin/Globulin Ratio 0.9 Procalcitonin TSH Urine Color Urine Appearance Urine pH Ur Specific Acme Urine Protein Urine Glucose (UA) Urine Ketones Urine Blood Urine Nitrite Urine Bilirubin Urine Urobilinogen Ur Leukocyte Esterase Urine WBC (Auto) Urine RBC (Auto) U Hyaline Cast (Auto) U Epithel Cells (Auto) Urine Bacteria (Auto) SARS-CoV-2, RNA, NAAT 06/11/22 06/11/22 06/11/22 19:20 20:18 22:40 WBC RBC Hgb Hct MCV MCH MCHC RDW Std Deviation RDW Coeff of Remberto Plt Count MPV Immature Gran % (Auto) Neut % (Auto) Lymph % (Auto) Yancey % (Auto) Eos % (Auto) Baso % (Auto) Neut # (Auto) Lymph # (Auto) Yancey # (Auto) Eos # (Auto) Baso # (Auto) Immature Gran # (Auto) PT INR APTT PTT Ratio Sodium Potassium Chloride Carbon Dioxide Anion Gap BUN Creatinine Est Cr Clr Drug Dosing Est GFR ( Amer) Est GFR (Non-Af Amer) BUN/Creatinine Ratio Glucose Calcium Phosphorus Magnesium Total Bilirubin AST ALT Alkaline Phosphatase Troponin I High Sens Total Protein Albumin Globulin Albumin/Globulin Ratio Procalcitonin TSH 4.101 Urine Color Dark Yellow Urine Appearance Clear Urine pH 6.5 Ur Specific Acme 1.023 Urine Protein 2+ H Urine Glucose (UA) Negative Urine Ketones Trace H Urine Blood 3+ H Urine Nitrite Negative Urine Bilirubin Negative Urine Urobilinogen Negative Ur Leukocyte Esterase Trace H Urine WBC (Auto) 1-5 Urine RBC (Auto) >30 H U Hyaline Cast (Auto) 5-10 H U Epithel Cells (Auto) 20-30 H Urine Bacteria (Auto) Negative SARS-CoV-2, RNA, NAAT NEGATIVE 06/12/22 06/12/22 06/12/22 01:18 06:32 06:32 WBC 11.87 H RBC 4.61 L Hgb 13.8 L Hct 41.2 MCV 89.4 MCH 29.9 MCHC 33.5 RDW Std Deviation 44.5 RDW Coeff of Remberto 13.7 Plt Count 166 MPV 10.9 Immature Gran % (Auto) 0.8 Neut % (Auto) 73.0 Lymph % (Auto) 17.4 Yancey % (Auto) 8.1 Eos % (Auto) 0.5 Baso % (Auto) 0.2 Neut # (Auto) 8.67 H Lymph # (Auto) 2.07 Yancey # (Auto) 0.96 H Eos # (Auto) 0.06 Baso # (Auto) 0.02 Immature Gran # (Auto) 0.09 H PT INR APTT PTT Ratio Sodium 135 L Potassium 3.5 Chloride 98 Carbon Dioxide 30 Anion Gap 7 BUN 23 Creatinine 1.15 Est Cr Clr Drug Dosing 47.8 Est GFR ( Amer) 65.0 Est GFR (Non-Af Amer) 56.1 BUN/Creatinine Ratio 20.0 Glucose 145 H Calcium 8.6 Phosphorus 3.7 3.6 Magnesium 1.9 1.8 Total Bilirubin 1.7 H AST 18 ALT 11 Alkaline Phosphatase 76 Troponin I High Sens 260.6 H* D Total Protein 6.4 Albumin 3.0 L Globulin 3.4 Albumin/Globulin Ratio 0.9 Procalcitonin TSH Urine Color Urine Appearance Urine pH Ur Specific Acme Urine Protein Urine Glucose (UA) Urine Ketones Urine Blood Urine Nitrite Urine Bilirubin Urine Urobilinogen Ur Leukocyte Esterase Urine WBC (Auto) Urine RBC (Auto) U Hyaline Cast (Auto) U Epithel Cells (Auto) Urine Bacteria (Auto) SARS-CoV-2, RNA, NAAT 06/12/22 06/12/22 06/12/22 06:32 06:32 06:32 WBC RBC Hgb Hct MCV MCH MCHC RDW Std Deviation RDW Coeff of Remberto Plt Count MPV Immature Gran % (Auto) Neut % (Auto) Lymph % (Auto) Yancey % (Auto) Eos % (Auto) Baso % (Auto) Neut # (Auto) Lymph # (Auto) Yancey # (Auto) Eos # (Auto) Baso # (Auto) Immature Gran # (Auto) PT 11.5 INR 1.1 APTT 65.5 H* PTT Ratio 2.4 Sodium Potassium Chloride Carbon Dioxide Anion Gap BUN Creatinine Est Cr Clr Drug Dosing Est GFR ( Amer) Est GFR (Non-Af Amer) BUN/Creatinine Ratio Glucose Calcium Phosphorus Magnesium Total Bilirubin AST ALT Alkaline Phosphatase Troponin I High Sens 195.9 H* D Total Protein Albumin Globulin Albumin/Globulin Ratio Procalcitonin 0.33 TSH Urine Color Urine Appearance Urine pH Ur Specific Acme Urine Protein Urine Glucose (UA) Urine Ketones Urine Blood Urine Nitrite Urine Bilirubin Urine Urobilinogen Ur Leukocyte Esterase Urine WBC (Auto) Urine RBC (Auto) U Hyaline Cast (Auto) U Epithel Cells (Auto) Urine Bacteria (Auto) SARS-CoV-2, RNA, NAAT 06/12/22 06:32 WBC RBC Hgb Hct MCV MCH MCHC RDW Std Deviation RDW Coeff of Remberto Plt Count MPV Immature Gran % (Auto) Neut % (Auto) Lymph % (Auto) Yancey % (Auto) Eos % (Auto) Baso % (Auto) Neut # (Auto) Lymph # (Auto) Yancey # (Auto) Eos # (Auto) Baso # (Auto) Immature Gran # (Auto) PT INR APTT Cancelled PTT Ratio Cancelled Sodium Potassium Chloride Carbon Dioxide Anion Gap BUN Creatinine Est Cr Clr Drug Dosing Est GFR ( Amer) Est GFR (Non-Af Amer) BUN/Creatinine Ratio Glucose Calcium Phosphorus Magnesium Total Bilirubin AST ALT Alkaline Phosphatase Troponin I High Sens Total Protein Albumin Globulin Albumin/Globulin Ratio Procalcitonin TSH Urine Color Urine Appearance Urine pH Ur Specific Acme Urine Protein Urine Glucose (UA) Urine Ketones Urine Blood Urine Nitrite Urine Bilirubin Urine Urobilinogen Ur Leukocyte Esterase Urine WBC (Auto) Urine RBC (Auto) U Hyaline Cast (Auto) U Epithel Cells (Auto) Urine Bacteria (Auto) SARS-CoV-2, RNA, NAAT Medications Administered Current Inpatient Medications Acetaminophen (Acetaminophen 325 Mg Tab) 650 mg PO Q4H PRN PRN Reason: Pain or Fever Stop: 07/11/22 22:41 Atorvastatin Calcium (Atorvastatin 40 Mg Tab) 40 mg PO QAM [facility] Stop: 07/12/22 08:59 Last Admin: 06/12/22 08:45 Dose: 40 mg Finasteride (Finasteride 5 Mg Tab) 5 mg PO QAM [facility] Stop: 07/12/22 08:59 Last Admin: 06/12/22 08:45 Dose: 5 mg Folic Acid (Folic Acid 1 Mg Tab) 1 mg PO QAM [facility] Stop: 07/12/22 08:59 Last Admin: 06/12/22 08:45 Dose: 1 mg Heparin Sodium/Dextrose (Heparin Sodium/Dextrose) 25,000 units in 500 mls @ 19 mls/hr IV .Q24H [facility]; Protocol Stop: 07/12/22 02:44 Last Titration: 06/12/22 07:03 Dose: 950 units/hr, 19 mls/hr Levothyroxine Sodium (Levothyroxine Sodium 50 Mcg Tablet) 50 mcg PO DAILYBB [facility] Stop: 07/12/22 06:29 Last Admin: 06/12/22 05:22 Dose: 50 mcg Nitroglycerin (Nitroglycerin Sl 0.4 Mg/Tab Tab) 0.4 mg SL Q5M PRN PRN Reason: Chest Pain Stop: 07/11/22 22:41 Polyethylene Glycol (Polyethylene (Miralax) 17 Gm Pack) 17 gm PO DAILY PRN PRN Reason: Constipation Stop: 07/11/22 22:41
--- NOTE | 2022-06-12 15:48 | Hospitalist Progress Note ---
Date of Service June 12, 2022 Assessment & Plan (1) Fall: Plan: per Dr. Aldana's notes with addendum: - does not appear syncopal or presyncopal based on history - however, given history of and carotid stenosis will get CTA neck, TTE to evaluate progression - MRI ordered as CT head noted lesion in latoya - not likely acute infarct as patient's exam is unremarkable and nonfocal - mabye orthostatic or dehydration related as UA indicates and patient is on diuretic - RLE swelling R>L - reports outpatient negative Duplex - ordered here again 06/12 patient feeling better overall (+) Orthostasis - given another 500cc IV NSS monitor Orthostatic VS r/o Progression of Aortic Stenosis - Echo pending CT angio head and neck: (+) BL carotid artery stenosis (+) L vertebral artery stenosis - add Aspirin 81 mg po daily continue Lipitor CVA ruled out - Brain MRI: no stroke (2) Carotid arterial disease: Plan: - noted in 2018 - has been asymptomatic since 2018 when he had some falls at that time - will consult Vascular Surgery (3) Aortic stenosis: Plan: - could be contributing factor to falls - h/o of mild to moderate 2018 06/12 gentle IV hydration Echo: pending (4) Elevated troponin: Plan: - elevated to 157, has had benign elevation in the past - ECG without ischemic changes - denies chest pain, shortness of breath, n/v - trending down (5) Leukocytosis: Plan: - unclear etiology - does not seem to have infectious symptoms - CXR without consolidation - UA negative for infection trending down no focus of infection identified at this time (6) HLD (hyperlipidemia): Plan: - continue statin (7) HTN (hypertension): Plan: - hold BP meds for now - orthostatics as above BP on the low side Atenolol on hold (8) DM2 (diabetes mellitus, type 2): Plan: - on metformin at home - hold inpatient - ISS for now - FSG AC+HS - diabetic diet (9) Hypothyroidism: Plan: TSH normal - continue levothyroxine (10) Hematuria: Plan: - noted on UA - outpatient work up Plan DVT ppx: heparin SC Code Status: Full Code Dispo: PT recommends return to home when medically stable Admission and Anticipated Discharge Date Admission Date: June 11, 2022 Subjective ff up for fall, etc seen resting in bed, comfortable in good spirits denies any pain no chest pain, dyspnea, palpitations, dizziness states he feels better overall no other symptoms Review of Systems Review of Systems: all noted and negative except for above Physical Exam Physical Exam: General- oriented x 3, not in distress, speaks in sentences with no effort or accessory muscle use Head- atraumatic Eyes- PERRL, EOMI, anicteric ENT- oropharynx clear Neck- supple, no JVD, no adenopathy, no thyromegaly; carotids +2/2, no bruits appreciated Lungs- clear to auscultation bilaterally, no rales/wheezes Heart- normal rate, regular rhythm; (+) grade 3/6 holosystolic murmur, no gallop, no rub appreciated Abdomen- normal bowel sounds, nondistended, soft, nontender, no masses or hepatosplenomegaly Extremities- no pretibial edema, no calf tenderness; peripheral pulses intact Neuro- alert, oriented x 3; CN 2-12 grossly intact; motor 5/5 bilaterally;sensation 100% on all extremities; no other gross focal neurologic deficits Skin- warm & dry Results & Data Results & Data ([facility]) Vital Signs (Past 12 Hours) Vital Signs Temp Pulse Pulse Resp BP Pulse Ox Pulse Ox 06/12/22 15:42 37.3 C 81 18 106/56 L 97 06/12/22 15:35 99 H 06/12/22 11:25 98 06/12/22 09:02 76 06/12/22 07:51 36.6 C 79 18 143/77 H 98 06/12/22 04:00 36.6 C 86 20 164/99 H 97 O2 Del Method O2 Del Method 06/12/22 15:42 Room Air 06/12/22 15:35 06/12/22 11:25 Room Air 06/12/22 09:02 06/12/22 07:51 Room Air 06/12/22 04:00 Room Air all noted and reviewed including below
--- NOTE | 2022-06-12 17:45 | Electrocardiogram Report ---
Test Reason : Blood Pressure : / mmHG Vent. Rate : 103 BPM Atrial Rate : 103 BPM P-R Int : 000 ms QRS Dur : 094 ms QT Int : 412 ms P-R-T Axes : 000 -16 130 degrees QTc Int : 539 ms Sinus rhythm with 1st degree AV block and PVCs Left ventricular hypertrophy with repolarization abnormality Prolonged QT Abnormal ECG When compared with ECG of 28-JUL-2018 07:21, ST now depressed in Lateral leads T wave inversion now evident in Anterolateral leads Confirmed by Nicola Cade ([id number]) on 06/12/2022 5:44:57 PM Referred By: REFERRED SELF Confirmed By:Jona Cade
[2022-06-13] MEDS: LEVOTHYROXINE SODIUM 50 MCG TABLET PO SCH (06:03)
--- NOTE | 2022-06-13 06:13 | Electrocardiogram Report ---
Test Reason : Blood Pressure : / mmHG Vent. Rate : 082 BPM Atrial Rate : 082 BPM P-R Int : 272 ms QRS Dur : 100 ms QT Int : 440 ms P-R-T Axes : 083 003 156 degrees QTc Int : 514 ms Sinus rhythm with 1st degree A-V block with occasional Premature ventricular complexes Left ventricular hypertrophy with repolarization abnormality Prolonged QT Abnormal ECG When compared with ECG of 11-JUN-2022 19:12, T wave inversion now evident in Anterolateral leads Confirmed by Gio Valenzuela ([id number]) on 06/13/2022 6:13:01 AM Referred By: REFERRED SELF Confirmed By:Gio Valenzuela
[2022-06-13] MEDS: ATORVASTATIN 40 MG TAB PO SCH (08:15)
[2022-06-13] MEDS: ASPIRIN 81 MG ECTAB PO SCH (08:15)
[2022-06-13] MEDS: FINASTERIDE 5 MG TAB PO SCH (08:15)
[2022-06-13] MEDS: FOLIC ACID 1 MG TAB PO SCH (08:15)
--- NOTE | 2022-06-13 10:23 | Cardiology Progress Note ---
Date of Service June 13, 2022 Assessment & Plan (1) Aortic stenosis: (2) DM2 (diabetes mellitus, type 2): (3) Fall: (4) Elevated troponin: Plan The patient's telemetry has been stable for the past 24 hours. At this point I think no additional cardiac testing or treatment is indicated. The patient can be discharged per the hospitalist service. Admission and Anticipated Discharge Date Admission Date: June 11, 2022 Subjective The patient has no cardiac complaints today. He is resting comfortably in a chair. Review of Systems Review of Systems: Review of Systems: See HPI for pertinent positives. All other 10 point review of systems are negative. Physical Exam Physical Exam: General: no acute distress and stated age Head: normocephalic, no masses, lesions, tenderness or abnormalities Eyes: conjunctiva are pink and non-injected, sclera clear Neck: supple, no adenopathy, no bruits, normal jugular venous pulse, no hepatojugular reflux Chest: normal shape and normal respiratory effort Lungs: clear to auscultation and percussion Cardiac Exam: - regular rate & rhythm, systolic murmur- normal S1, normal S2 Pulses: 2(+) throughout Abdomen: abdomen soft, non-tender, no abnormal masses and no hepatosplenomegaly Musculoskeletal: no gait disturbance, no joint inflammation, no deforming arthritis Extremities: no edema and no cyanosis Neuro: grossly normal exam Results & Data ([facility]) Vital Signs (Past 12 Hours) Vital Signs Temp Pulse Pulse Resp BP Pulse Ox O2 Del Method 06/13/22 07:41 36.5 C 77 18 108/63 96 Room Air 06/13/22 07:13 85 06/13/22 04:01 36.9 C 84 18 101/58 L 97 Room Air 06/12/22 23:00 37.6 C Laboratory Results Laboratory Results - last 24 hr 06/12/22 06:32 APTT 65.5 H* PTT Ratio 2.4 Medications Administered Current Inpatient Medications Acetaminophen (Acetaminophen 325 Mg Tab) 650 mg PO Q4H PRN PRN Reason: Pain or Fever Stop: 07/11/22 22:41 Aspirin (Aspirin 81 Mg Ectab) 81 mg PO [facility] Stop: 07/13/22 08:59 Last Admin: 06/13/22 08:15 Dose: 81 mg Atorvastatin Calcium (Atorvastatin 40 Mg Tab) [facility] [place] Stop: 07/12/22 08:59 Last Admin: 06/13/22 08:15 Dose: 40 mg Finasteride (Finasteride 5 Mg Tab) 5 mg PO QAM [facility] Stop: 07/12/22 08:59 Last Admin: 06/13/22 08:15 Dose: 5 mg Folic Acid (Folic Acid 1 Mg Tab) 1 mg PO QAM [facility] Stop: 07/12/22 08:59 Last Admin: 06/13/22 08:15 Dose: 1 mg Levothyroxine Sodium (Levothyroxine Sodium 50 Mcg Tablet) [facility]: 07/12/22 06:29 Last Admin: 06/13/22 06:03 Dose: 50 mcg Nitroglycerin (Nitroglycerin Sl 0.4 Mg/Tab Tab) 0.4 mg SL Q5M PRN PRN Reason: Chest Pain Stop: 07/11/22 22:41 Polyethylene Glycol (Polyethylene (Miralax) 17 Gm Pack) 17 gm PO DAILY PRN PRN Reason: Constipation Stop: 07/11/22 22:41
--- NOTE | 2022-06-13 12:53 | XRay Report ---
XR knee RT 1 or 2V routine HISTORY: 89 years-old Male pain, r/o fractures, s/p fall acute right knee pain status post fall COMPARISON: None TECHNIQUE: 2 views of the right knee FINDINGS: Chondrocalcinosis. Mild lateral with moderate medial and patellofemoral compartment osteoarthritis. A rterial calcifications. Small joint effusion. Mild circumferential soft tissue prominence. No acute f racture or dislocation. IMPRESSION: Small joint effusion without acute fracture or dislocation. ACT 112: Negative or not required by law. The above report was generated using voice recognition software. It may contain grammatical, syntax o r spelling errors. Electronically signed by: Roque Brink M.D. 06/13/2022 12:51 PM
--- NOTE | 2022-06-13 19:23 | Hospitalist Progress Note ---
Date of Service June 13, 2022 Assessment & Plan (1) Fall: Plan: per Dr. Aldana's notes with addendum: - does not appear syncopal or presyncopal based on history - however, given history of and carotid stenosis will get CTA neck, TTE to evaluate progression - MRI ordered as CT head noted lesion in latoya - not likely acute infarct as patient's exam is unremarkable and nonfocal - mabye orthostatic or dehydration related as UA indicates and patient is on diuretic - RLE swelling R>L - reports outpatient negative Duplex - ordered here again 06/13 patient feeling better overall (+) Orthostasis, resolved - given gentle IV NSS - d/c Atenolol per Cardio continue Lasix 20mg po mwf Progression of Aortic Stenosis - Echo: severe calcific aortic stenosis no intervention at this time per Cardiology maintain good hydration at home CT angio head and neck: (+) BL carotid artery stenosis (+) L vertebral artery stenosis - added Aspirin 81 mg po daily continue Lipitor CVA ruled out - Brain MRI: no stroke (2) Carotid arterial disease: Plan: - noted in 2018 - has been asymptomatic since 2018 when he had some falls at that time - consulted Vascular Surgery (3) Aortic stenosis: Plan: - could be contributing factor to falls - h/o of mild to moderate 2018 per above (4) Elevated troponin: Plan: - elevated to 157, has had benign elevation in the past - ECG without ischemic changes - denies chest pain, shortness of breath, n/v - trended down (5) Leukocytosis: Plan: - unclear etiology - does not seem to have infectious symptoms - CXR without consolidation - UA negative for infection trending down no focus of infection identified at this time (6) HLD (hyperlipidemia): Plan: - continue statin (7) HTN (hypertension): Plan: - hold BP meds for now - orthostatics as above BP on the low side Atenolol on hold (8) DM2 (diabetes mellitus, type 2): Plan: - on metformin at home - hold inpatient - ISS for now - FSG AC+HS - diabetic diet (9) Hypothyroidism: Plan: TSH normal - continue levothyroxine (10) Hematuria: Plan: - noted on UA - outpatient work up Plan DVT ppx: heparin SC Code Status: Full Code Dispo: anticipate d/c home tomorrow Admission and Anticipated Discharge Date Admission Date: June 11, 2022 Subjective ff up for fall, etc seen resting in bedside chair, comfortable in good spirits states he feels fine overall no chest pain, dyspnea, palpitations, dizziness ambulating in the bathroom with no dizziness or symptoms no other symptoms Review of Systems Review of Systems: all noted and negative except for above Physical Exam Physical Exam: General- oriented x 3, not in distress, speaks in sentences with no effort or accessory muscle use Eyes- anicteric Neck- no JVD Lungs- clear BS bilaterally, no rales/wheezes Heart- normal rate, regular rhythm; (+) gr 3/6 murmur Abdomen- normal bowel sounds, nondistended, soft, nontender Extremities- no pretibial edema, no calf tenderness Neuro- alert, oriented x 3; no gross focal neurologic deficits Skin- warm & dry Results & Data Results & Data ([facility]) Vital Signs (Past 12 Hours) Vital Signs Temp Pulse Pulse Resp BP BP Pulse Ox 06/13/22 18:26 37.0 C 87 18 101/63 98 06/13/22 15:38 80 06/13/22 14:53 37.1 C 82 20 94/53 L 94 06/13/22 11:43 36.4 C L 85 20 104/69 99 06/13/22 07:41 36.5 C 77 18 108/63 96 O2 Del Method 06/13/22 18:26 Room Air 06/13/22 15:38 06/13/22 14:53 Room Air 06/13/22 11:43 Room Air 06/13/22 07:41 Room Air all noted and reviewed including below
[2022-06-14] MEDS: LEVOTHYROXINE SODIUM 50 MCG TABLET PO SCH (06:08)
[2022-06-14 07:36] LABS: Hematocrit (blood only) 38.9 % (40.1-51.0); Mean Corpuscular Hemoglobin 29.8 pg (25.0-34.0); Mean Corpuscular Hgb Conc 33.4 g/dL (32.0-36.0); Mean Corpuscular Volume 89.2 fL (80.0-100.0); Mean Platelet Volume 10.4 fL (9.4-12.4); Platelet Count 176 K/uL (130-400); RDW Coefficient of Variation 13.5 % (11.5-14.5); Red Blood Count 4.36 M/uL (4.63-6.08); White Blood Count 7.32 K/ul (4.8-10.8)
--- NOTE | 2022-06-14 09:02 | Hospitalist Progress Note ---
Date of Service June 14, 2022 Assessment & Plan (1) Fall: Plan: 06/14 fall not associated with any prodrome patient feeling better overall (+) Orthostasis, resolved - given gentle IV NSS - d/c Atenolol per Cardio continue Lasix 20mg po mwf Progression of Aortic Stenosis - Echo: severe calcific aortic stenosis no intervention at this time per Cardiology maintain good hydration at home CT angio head and neck: (+) BL carotid artery stenosis (+) L vertebral artery stenosis - added Aspirin 81 mg po daily continue Lipitor CVA ruled out - Brain MRI: no stroke 1. No acute intracranial findings. 2. Extensive small vessel disease. The pontine hypodensity on head CT was due to small vessel disease. 3. No intracranial mass or pathologic enhancement. (2) Carotid arterial disease: Plan: - noted in 2018 - has been asymptomatic since 2018 when he had some falls at that time Ct angio head and neck: 1. No central vessel occlusion. No intracranial aneurysm. 2. Moderate stenosis of the intracranial portion of the left vertebral artery. 3. Moderate plaque within bilateral cavernous carotids without significant stenosis. FINDINGS: The aortic arch and proximal great vessels are widely patent. There is moderate to severe calcified plaque within the bilateral carotid bifurcations. This results in 75% focal stenosis within the distal right common carotid artery and 60-70 % stenosis within the proximal right internal carotid artery and takeoff of the right external carotid artery. There is also up to 50% focal stenosis at the distal left common carotid artery and 50% stenosis within the proximal left internal carotid artery. The bilateral mid to distal internal carotid arteries are patent. There is moderate left and mild right focal narrowing within the bilateral V4 segments. The remaining cervical vertebral arteries are widely patent. IMPRESSION: 1. Bilateral carotid bifurcation stenosis as described above due to the calcified plaque. 2. Mild right and moderate left focal narrowing within the V4 segments. 3. Please refer to same day head CT for further evaluation of the cerebral arteries. -- Aspirin 81mg po daily started continue Lipitor -- outpatient vascular surgery evaluation (3) Aortic stenosis: Plan: per above (4) Elevated troponin: Plan: - elevated to 157, has had benign elevation in the past - ECG without ischemic changes - denies chest pain, shortness of breath, n/v - trended down no further cardiac testing at this point per Dr. Ramirez (5) Leukocytosis: Plan: - unclear etiology - does not seem to have infectious symptoms - CXR without consolidation - UA negative for infection trended down no focus of infection identified at this time (6) HLD (hyperlipidemia): Plan: - continue statin (7) HTN (hypertension): Plan: BP on the low side Atenolol discontinued monitor as outpatient (8) DM2 (diabetes mellitus, type 2): Plan: - on metformin at home a1c 8.1 (9) Hypothyroidism: Plan: TSH normal - continue levothyroxine (10) Hematuria: Plan: - noted on UA - outpatient work up Plan DVT ppx: heparin SC Code Status: Full Code Dispo: Discharge to home with home health services Follow-up with primary care physician in 1 week Referred to vascular surgery Follow-up with cardiology Admission and Anticipated Discharge Date Admission Date: June 11, 2022 Subjective ff up for fall, etc seen resting in bedside chair, comfortable in good spirits states he feels fine overall no dizziness, presyncope/syncope no chest pain, dyspnea, palpitations ambulating in the room with no problems no other symptoms states he is ready for discharge today Review of Systems Review of Systems: all noted and negative except for above Physical Exam Physical Exam: General- oriented x 3, not in distress, speaks in sentences with no effort or accessory muscle use Eyes- anicteric Neck- no JVD Lungs- clear BS BL Heart- normal rate, regular rhythm; gr 3/6 murmur Abdomen- normal bowel sounds, nondistended, soft, nontender Extremities- no pretibial edema, no calf tenderness Neuro- alert, oriented x 3; no gross focal neurologic deficits Skin- warm & dry Results & Data Results & Data ([facility]) Vital Signs (Past 12 Hours) Vital Signs Temp Pulse Pulse Pulse Resp BP BP 06/14/22 07:58 37.0 C 85 18 137/77 06/14/22 04:02 37.1 C 69 69 18 137/75 06/13/22 22:30 92 H 06/13/22 23:00 36.4 C 92 H 18 125/93 Pulse Ox O2 Del Method 06/14/22 07:58 95 Room Air 06/14/22 04:02 95 Room Air 06/13/22 22:30 06/13/22 23:00 97 Room Air all noted and reviewed including below
--- NOTE | 2022-06-14 09:18 | Discharge Summary ---
Date of Service June 14, 2022 Admission HPI Per Admitting Provider The patient is an 89 year old man with pmh HLD, BPH, DM2, hypothyroidism, h/o recurrent falls, Carotid artery stenosis R>L (2018), mild to moderate who presented after a fall from standing while walking into his bathroom. He says that he walked into his bathroom and just feel to the ground. He reports no LOC, dizziness, light headedness, chest pain, palpitations, nausea or vomiting prior to the fall. He denies tripping or feeling weakness in his legs prior to the event. He reports a similar episode about 1 week ago where he walked into the bathroom and started to fall, tried grabbing a towel railing that gave out and he fell. He denies hitting his head. For this episode, he was unable to get up off the floor and so crawled to the door and asked a neighbor for help, who called 911 and he was brought to the ED. At baseline, he has good functional status and walks to his local library 3 blocks almost every day without stopping for shortness of breath or chest pain. He current is denying any symptoms. He denies a history of CVA or RI, or HF. He does report 3 weeks of diarrhea but only on Friday, but reports no diarrhea for at least a week and a half. He denies change in appetite but reports not eating since about 11AM because he came to the hospital. Reports swelling in his right leg recently but his PCP ordered a duplex US that he reports did not show evidence of DVT. Denies any other symptoms of fever or chills, n/v/d, abdominal pain, dysuria, cough, shortness of breath, sick contacts, rashes. In the ED, vitals were significant for HR 100, BP 80-90s/60s after initial BP 115/81. Labs were significant for WBC 15, Na 135, BUN 24, Cr 1.3 (at baseline 1.3), tbili 2.2, troponin 157, UA with evidence of dehydration and hematuria. CT head was negative for hemorrhage, but showed small ovoid shaped area of low attenuation in mid latoya which could indicate acute or subacute infarct that cannot be excluded and recommend brain MRI. He was admitted to medicine for further work up and management. Discharge Data Allergies Allergy/AdvReac Type Severity Reaction Status Date / Time No Known Allergies Allergy Unknown Verified 06/11/22 22:06 Consultations 06/11/22 22:41 ED Decision to Admit Stat 06/11/22 23:12 Consult Cardiology Routine 06/12/22 16:24 Consult Vascular Surgery Routine Ordered Studies 06/11/22 20:24 CT head/brain wo con Urgent 06/11/22 22:08 CT angio head w con Urgent CT angio neck with con Urgent 06/11/22 22:47 US venous duplex leg [US venous doppler LE RT] Urgent 06/11/22 23:14 MRI Brain [MR brain wo/w con] Stat Hospital Course (1) Fall: 06/14 fall not associated with any prodrome patient feeling better overall (+) Orthostasis, resolved - given gentle IV NSS - d/c Atenolol per Cardio continue Lasix 20mg po mwf Progression of Aortic Stenosis - Echo: severe calcific aortic stenosis no intervention at this time per Cardiology maintain good hydration at home CT angio head and neck: (+) BL carotid artery stenosis (+) L vertebral artery stenosis - added Aspirin 81 mg po daily continue Lipitor CVA ruled out - Brain MRI: no stroke 1. No acute intracranial findings. 2. Extensive small vessel disease. The pontine hypodensity on head CT was due to small vessel disease. 3. No intracranial mass or pathologic enhancement. (2) Carotid arterial disease: - noted in 2018 - has been asymptomatic since 2018 when he had some falls at that time Ct angio head and neck: 1. No central vessel occlusion. No intracranial aneurysm. 2. Moderate stenosis of the intracranial portion of the left vertebral artery. 3. Moderate plaque within bilateral cavernous carotids without significant stenosis. FINDINGS: The aortic arch and proximal great vessels are widely patent. There is moderate to severe calcified plaque within the bilateral carotid bifurcations. This results in 75% focal stenosis within the distal right common carotid artery and 60-70 % stenosis within the proximal right internal carotid artery and takeoff of the right external carotid artery. There is also up to 50% focal stenosis at the distal left common carotid artery and 50% stenosis within the proximal left internal carotid artery. The bilateral mid to distal internal carotid arteries are patent. There is moderate left and mild right focal narrowing within the bilateral V4 segments. The remaining cervical vertebral arteries are widely patent. IMPRESSION: 1. Bilateral carotid bifurcation stenosis as described above due to the calcified plaque. 2. Mild right and moderate left focal narrowing within the V4 segments. 3. Please refer to same day head CT for further evaluation of the cerebral arteries. -- Aspirin 81mg po daily started continue Lipitor -- outpatient vascular surgery evaluation (3) Aortic stenosis: per above (4) Elevated troponin: - elevated to 157, has had benign elevation in the past - ECG without ischemic changes - denies chest pain, shortness of breath, n/v - trended down no further cardiac testing at this point per Dr. Ramirez (5) Leukocytosis: - unclear etiology - does not seem to have infectious symptoms - CXR without consolidation - UA negative for infection trended down no focus of infection identified at this time (6) HLD (hyperlipidemia): - continue statin (7) HTN (hypertension): BP on the low side Atenolol discontinued monitor as outpatient (8) DM2 (diabetes mellitus, type 2): - on metformin at home a1c 8.1 (9) Hypothyroidism: TSH normal - continue levothyroxine (10) Hematuria: - noted on UA - outpatient work up Plan DVT ppx: heparin SC Code Status: Full Code Dispo: Discharge to home with home health services Follow-up with primary care physician in 1 week Referred to vascular surgery Follow-up with cardiology Discharge Plan Discharge Items Reason For Visit: FALL Discharge Diagnosis: Fall Acute stroke ruled out Acute coronary syndrome ruled out Activity: Resume your previous activity Activity Comment: Always ambulate carefully with your walker Driving/Machine Use: No driving until reevaluated and allowed by your primary care physician Non-emergency contact: Primary Care Provider Call non-emergency contact if: you have any medication questions, your symptoms worsen, your pain is not controlled, your pain is worsening, your pain is unusual for you, your pain is concerning for you and you have a fever Follow-up/Referrals: Alin Denney DO [Senior Web Analyst] - (Date & Time 06/27/2022 1:00 PM Provider Alin Denney DO Department Cardiology [facility] ) Jaylan Lara MD [Primary Care Provider] - (Date & Time 06/19/2022 11:10 AM Provider Brooklyn Coreas DO Department Family Medicine [facility] ) Diet: Carb Consistent or DM2 Addtl Attending Provider Instructions: PLEASE REFER TO YOUR NEW MEDICATION LIST AND FOLLOW INSTRUCTIONS CAREFULLY. YOUR NEW MEDICATIONS INCLUDE: Aspirin 81 mg daily -for stroke prevention, always take aspirin with a full stomach to prevent stomach ulcers Stop taking Atenolol. Always remain well-hydrated. Drink at least 6 cups of water per day. PLEASE CALL YOUR PRIMARY CARE PHYSICIAN OR RETURN TO THE ER IF WITH WORSENING OF SYMPTOMS, INCLUDING Dizziness, weakness, chest pain, shortness of breath. FOLLOW UP WITH PRIMARY CARE PHYSICIAN OUTLINED ABOVE. Follow-up with the cut and print machine operator as scheduled above. You need to be referred to a vascular surgeon. Your primary care physician can help set up an appointment. Pending Studies at Discharge: No Stand-Alone Forms: [employer] [place], Smoking Cessation Medications and DC Order Prescriptions: New aspirin 81 mg Tablet,Delayed Release (Dr/Ec) 81 mg PO QAM 30 Days Qty: 30 2RF Rx Instructions: Always take with a full stomach. Continued atorvastatin 40 mg tablet 40 mg PO QAM metformin 500 mg tablet 500 mg PO BIDM glipizide 2.5 mg tablet extended release 24hr 2.5 mg PO QAM levothyroxine 50 mcg tablet 50 mcg PO QAM furosemide 20 mg tablet 20 mg PO MOWEFR finasteride 5 mg tablet 5 mg PO DAILY potassium chloride 10 mEq tablet,ER particles/crystals 10 meq PO MOWEFR folic acid 0.8 mg Capsule 0.8 mg PO DAILY Discontinued atenolol 25 mg tablet 12.5 mg PO DAILY Admission Data Admit Date/Time: 06/11/22 22:42 Attending Provider: Ming Montano Admit Provider: Darnell Thurston Primary Care Provider: Jaylan Lara Other Providers: Darnell Thurston ; Frankie Ramirez ; Louie Pompa ; Tico Bernal [facility]
[2022-06-14] MEDS: FINASTERIDE 5 MG TAB PO SCH (09:47)
[2022-06-14] MEDS: ASPIRIN 81 MG ECTAB PO SCH (09:47)
[2022-06-14] MEDS: ATORVASTATIN 40 MG TAB PO SCH (09:47)
[2022-06-14] MEDS: FOLIC ACID 1 MG TAB PO SCH (09:48)
--- NOTE | 2022-06-14 11:24 | Consultation ---
Date of Consultation June 14, 2022 Assessment & Plan (1) Carotid arterial disease: Pt with BL ICA stenosis, R side 70%, L side 50% by CTA, but appears asymptomatic. After discussion with Dr Pompa, he recommends pt undergo reeval in 6 months with a carotid US. Office will call to schedule. No indications for vascular surgical intervention at this time. Pt in agreement to this plan. Please call if needed. History of Present Illness Reason for Consultation: carotid stenosis Attending Physician: Ming Montano MD History of Present Illness 89 yo m with hx of , DMII, HTN, hyperlipidemia, hypothyroidism, carotid stenosis, admitted after a mechanical fall at home, seen in consultation today for carotid stenosis. Pt states this is the second fall he has had in about 3 weeks. Denies near syncope, LINDSAY, dizziness, amaurosis, unilateral extremity weakness numbness or tingling, difficulty speaking, or confusion. States no LOC and was able to crawl to the door of his apartment and yell for help. Did have a few episodes of diarrhea in the past few weeks. Denies fever, recent illness, chest pain, SOB, abd pain, N/V, rest pain, claudication, other complaints. CTA neck demonstrates approx 70% R ICA, and approx 50% L ICA. MRI demonstrates small vessel disease, but no infarct. Allergies Allergy/AdvReac Type Severity Reaction Status Date / Time No Known Allergies Allergy Unknown Verified 06/11/22 22:06 Home Medications Medication Instructions Recorded Confirmed Type atenolol 25 mg tablet 12.5 mg PO DAILY 06/11/22 06/11/22 History atorvastatin 40 mg tablet 40 mg PO QAM 06/11/22 06/11/22 History finasteride 5 mg tablet 5 mg PO DAILY 06/11/22 06/11/22 History folic acid 0.8 mg capsule 0.8 mg PO DAILY 06/11/22 06/11/22 History furosemide 20 mg tablet 20 mg PO MOWEFR 06/11/22 06/11/22 History glipizide 2.5 mg tablet, extended 2.5 mg PO QAM 06/11/22 06/11/22 History release 24 hr levothyroxine 50 mcg tablet 50 mcg PO QAM 06/11/22 06/11/22 History metformin 500 mg tablet 500 mg PO BIDM 06/11/22 06/11/22 History potassium chloride 10 mEq 10 meq PO MOWEFR 06/11/22 06/11/22 History tablet,extended release(part/cryst) aspirin 81 mg tablet,delayed 81 mg PO QAM 30 days #30 tabs 06/14/22 Rx release Patient History Medical History Carotid arterial disease Diabetes HLD (hyperlipidemia) HTN (hypertension) Moderate calcific aortic stenosis Surgical History S/P laparoscopic cholecystectomy Social History Smoking Status: Former smoker Hx Alcohol Use: No Hx Substance Use: No Preferred Language: Yi Communication Ability: Effective Granite Cutter Required: Yes Beliefs That Will Affect Care: None marital status: / Current Living Situation: Alone Current Living Situation Comment: apartment How many Children do You have: 1 Feels Safe at Home: Yes Safety Concerns: Feels Safe At This Time Assistive Devices: Cane Review of Systems Review of Systems: All systems reviewed & are unremarkable except as noted in HPI & below Physical Exam Constitutional: WD/WN, vitals as above healthy appearing, cooperative and comfortable; not in distress ENMT: Ears: + hearing impairment (mild) Neck: trachea midline Respiratory: normal respiratory effort, lungs clear to auscultation Auscultation: + diminished lung sounds Cardiovascular: Rate/Rhythm: regular rate and regular rhythm Heart Sounds: + murmur Vessels: posterior tibial pulses present (nonpalpable), dorsalis pedis pulses present and radial pulses present; + abnormal peripheral pulses Extremities: normal capillary refill and + edema (trace) Gastrointestinal (Abdomen): Inspection/Auscultation: abdomen normal to inspection and normal bowel sounds Percussion/Palpation: abdomen soft; abdomen nontender Musculoskeletal: no cyanosis or clubbing, extremities motor strength 5/5 Skin: no rashes, warm and dry Neurologic: moves all extremities and awake; no focal motor deficits and not confused Psychiatric: A+Ox3, euthymic affect Results & Data ([facility]) Vital Signs (Past 12 Hours) Vital Signs Temp Pulse Pulse Resp BP Pulse Ox O2 Del Method 06/14/22 07:58 37.0 C 85 18 137/77 95 Room Air 06/14/22 04:02 37.1 C 69 69 18 137/75 95 Room Air
--- NOTE | 2022-06-16 14:32 | Discharge Summary ---
Discharge Summary Date of Service June 16, 2022 delayed entry date of service 06/14/2022 Notes For Next Care Provider Aspirin 81 mg p.o. daily started for carotid stenosis, vertebral artery stenosis Needs to be referred to vascular surgeon Atenolol discontinued per cardiology service in light of blood pressure on the lower side Medication Changes From Visit As per above Admission HPI Per Admitting Provider The patient is an 89 year old man with pmh HLD, BPH, DM2, hypothyroidism, h/o recurrent falls, Carotid artery stenosis R>L (2018), mild to moderate who presented after a fall from standing while walking into his bathroom. He says that he walked into his bathroom and just feel to the ground. He reports no LOC, dizziness, light headedness, chest pain, palpitations, nausea or vomiting prior to the fall. He denies tripping or feeling weakness in his legs prior to the event. He reports a similar episode about 1 week ago where he walked into the bathroom and started to fall, tried grabbing a towel railing that gave out and he fell. He denies hitting his head. For this episode, he was unable to get up off the floor and so crawled to the door and asked a neighbor for help, who called 911 and he was brought to the ED. At baseline, he has good functional status and walks to his local library 3 blocks almost every day without stopping for shortness of breath or chest pain. He current is denying any symptoms. He denies a history of CVA or UT, or HF. He does report 3 weeks of diarrhea but only on Friday, but reports no diarrhea for at least a week and a half. He denies change in appetite but reports not eating since about 11AM because he came to the hospital. Reports swelling in his right leg recently but his PCP ordered a duplex US that he reports did not show evidence of DVT. Denies any other symptoms of fever or chills, n/v/d, abdominal pain, dysuria, cough, shortness of breath, sick contacts, rashes. In the ED, vitals were significant for HR 100, BP 80-90s/60s after initial BP 115/81. Labs were significant for WBC 15, Na 135, BUN 24, Cr 1.3 (at baseline 1.3), tbili 2.2, troponin 157, UA with evidence of dehydration and hematuria. CT head was negative for hemorrhage, but showed small ovoid shaped area of low attenuation in mid latoya which could indicate acute or subacute infarct that cannot be excluded and recommend brain MRI. He was admitted to medicine for further work up and management. Admission Exam Per Admitting Provider Constitutional: WD/WN, vitals as above Eyes: PERRL, conjunctivae normal, anicteric sclerae ENMT: external ear and nose normal, oropharynx normal Neck: trachea midline, no thyromegaly Respiratory: normal respiratory effort, lungs clear to auscultation Cardiovascular: Rate/Rhythm: regular rate and regular rhythm Heart Sounds: normal S1, normal S2 and + murmur (right upper sternal border, systolic murmur); no gallop and no cardiac rub Vessels: no JVD Gastrointestinal (Abdomen): normal bowel sounds, soft, nontender, no hepatosplenomegaly Musculoskeletal: no cyanosis or clubbing, extremities motor strength 5/5 R lower extremity with trace edema, no erythema Skin: no rashes, warm and dry Neurologic: patellar DTR's 2+ bilat, sensation intact and PERRL, EOMI, accommodation nl, no face palsy, no dysarthria Psychiatric: A+Ox3, euthymic affect Principal Dx & Hospital Course #1 = Principal Diagnosis (1) Fall: (2) Carotid arterial disease: (3) Aortic stenosis: (4) Elevated troponin: (5) Leukocytosis: (6) HLD (hyperlipidemia): (7) HTN (hypertension): (8) DM2 (diabetes mellitus, type 2): (9) Hypothyroidism: (10) Hematuria: (1) Fall: Plan: 06/14 fall not associated with any prodrome patient feeling better overall (+) Orthostasis, resolved - given gentle IV NSS - d/c Atenolol per Cardio continue Lasix 20mg po mwf Progression of Aortic Stenosis - Echo: severe calcific aortic stenosis no intervention at this time per Cardiology maintain good hydration at home CT angio head and neck: (+) BL carotid artery stenosis (+) L vertebral artery stenosis - added Aspirin 81 mg po daily continue Lipitor CVA ruled out - Brain MRI: no stroke 1. No acute intracranial findings. 2. Extensive small vessel disease. The pontine hypodensity on head CT was due to small vessel disease. 3. No intracranial mass or pathologic enhancement. (2) Carotid arterial disease: Plan: - noted in 2018 - has been asymptomatic since 2018 when he had some falls at that time Ct angio head and neck: 1. No central vessel occlusion. No intracranial aneurysm. 2. Moderate stenosis of the intracranial portion of the left vertebral artery. 3. Moderate plaque within bilateral cavernous carotids without significant stenosis. FINDINGS: The aortic arch and proximal great vessels are widely patent. There is moderate to severe calcified plaque within the bilateral carotid bifurcations. This results in 75% focal stenosis within the distal right common carotid artery and 60-70 % stenosis within the proximal right internal carotid artery and takeoff of the right external carotid artery. There is also up to 50% focal stenosis at the distal left common carotid artery and 50% stenosis within the proximal left internal carotid artery. The bilateral mid to distal internal carotid arteries are patent. There is moderate left and mild right focal narrowing within the bilateral V4 segments. The remaining cervical vertebral arteries are widely patent. IMPRESSION: 1. Bilateral carotid bifurcation stenosis as described above due to the calcified plaque. 2. Mild right and moderate left focal narrowing within the V4 segments. 3. Please refer to same day head CT for further evaluation of the cerebral arteries. --Aspirin 81mg po daily started continue Lipitor -- outpatient vascular surgery evaluation (3) Aortic stenosis: Plan: per above (4) Elevated troponin: Plan: - elevated to 157, has had benign elevation in the past - ECG without ischemic changes - denies chest pain, shortness of breath, n/v - trended down no further cardiac testing at this point per Dr. Ramirez (5) Leukocytosis: Plan: - unclear etiology - does not seem to have infectious symptoms - CXR without consolidation - UA negative for infection trended down no focus of infection identified at this time (6) HLD (hyperlipidemia): Plan: - continue statin (7) HTN (hypertension): Plan: BP on the low side Atenolol discontinued monitor as outpatient (8) DM2 (diabetes mellitus, type 2): Plan: - on metformin at home a1c 8.1 (9) Hypothyroidism: Plan: TSH normal - continue levothyroxine (10) Hematuria: Plan: - noted on UA - outpatient work up Plan DVT ppx: heparin SC Code Status: Full Code Dispo: Discharge to home with home health services Follow-up with primary care physician in 1 week Referred to vascular surgery Follow-up with cardiology Discharge Exam General- oriented x 3, not in distress, speaks in sentences with no effort or accessory muscle use Eyes- anicteric Neck- no JVD Lungs- clear BS BL Heart- normal rate, regular rhythm; gr 3/6 murmur Abdomen- normal bowel sounds, nondistended, soft, nontender Extremities- no pretibial edema, no calf tenderness Neuro- alert, oriented x 3; no gross focal neurologic deficits Skin- warm & dry Updated Medication List Medication Instructions Recorded Confirmed Type atorvastatin 40 mg tablet 40 mg PO QAM 06/11/22 06/11/22 History finasteride 5 mg tablet 5 mg PO DAILY 06/11/22 06/11/22 History folic acid 0.8 mg capsule 0.8 mg PO DAILY 06/11/22 06/11/22 History furosemide 20 mg tablet 20 mg PO MOWEFR 06/11/22 06/11/22 History glipizide 2.5 mg tablet, extended 2.5 mg PO QAM 06/11/22 06/11/22 History release 24 hr levothyroxine 50 mcg tablet 50 mcg PO QAM 06/11/22 06/11/22 History metformin 500 mg tablet 500 mg PO BIDM 06/11/22 06/11/22 History potassium chloride 10 mEq 10 meq PO MOWEFR 06/11/22 06/11/22 History tablet,extended release(part/cryst) aspirin 81 mg tablet,delayed 81 mg PO QAM 30 days #30 tabs 06/14/22 Rx release Hospital Stay Data Consultations 06/11/22 22:41 ED Decision to Admit Stat 06/11/22 23:12 Consult Cardiology Routine 06/12/22 16:24 Consult Vascular Surgery Routine Diagnostic Imagining Performed Chest X-Ray 06/11/22 19:32 XR chest 1V portable HISTORY: 89 years-old Male recent chf dx acute shortness of breath COMPARISON: Chest radiograph 07/27/2018 TECHNIQUE: Portable AP view of the chest FINDINGS: Cardiac silhouette is enlarged. Pulmonary vascular congestion with reticular interstitial coarsening, similar to prior. No pneumothorax. Unchanged blunting of the costophrenic angles. Degenerative changes of the shoulders and spine. IMPRESSION: Cardiomegaly with pulmonary vascular congestion and mild diffuse reticular interstitial coarsening, similar to prior. Findings are likely chronic, however mild interstitial pulmonary edema could appear similarly. ACT 112: Negative or not required by law. The above report was generated using voice recognition software. It may contain grammatical, syntax or spelling errors. Electronically signed by: Roque Brink M.D. 06/11/2022 7:[address] 06/11/22 20:24 CT OF THE HEAD WITHOUT CONTRAST CLINICAL HISTORY: dizziness COMPARISON STUDY: MRI of the brain July 28, 2018. Head CT July 27, 2018. CT DOSE: 1074.96 mGy.cm TECHNIQUE: Helical axial images of the head were obtained without IV contrast. Automated exposure control was utilized for the study. A dose lowering technique was utilized adhering to the principles of ALARA. FINDINGS: No acute intracranial hemorrhage, midline shift or mass effect is present. Extensive white matter hypodensities have progressed. These favor small vessel disease. Hypodensity within the latoya may represent small vessel disease. The ventricular system is unremarkable. The basal cisterns are patent. No extra- axial collections are present. There are no findings to suggest acute dural sinus thrombosis or acute territorial infarct. No significant calvarial abnormalities are present. Visualized portions of the sinuses and mastoid air cells are clear. IMPRESSION: No acute intracranial findings. Extensive small vessel disease. ACT 112: Negative or not required by law. Electronically signed by: Dariusz Powers M.D. 06/12/2022 7:11 AM Head CTA 06/11/22 22:08 CTA ANGIOGRAPHY OF THE HEAD CLINICAL HISTORY: dizzy, ?stroke COMPARISON STUDY: MRI of the brain July 28, 2018. Head CT July 27, 2018. TECHNIQUE: Helical axial images of the head were obtained following uneventful intravenous administration of 114 cc of Optiray. Sagittal and coronal reconstructions were viewed as well as maximal intensity projections on an independent 3-D workstation. Automated exposure control was utilized for the study. A dose lowering technique was utilized adhering to the principles of ALARA. FINDINGS: Please note that the head CT will be reported separately. There is moderate calcified plaque within the bilateral cavernous carotids without significant stenosis. There is no central vessel occlusion. There is no intracranial aneurysm. There is moderate stenosis of the intracranial portion of the left vertebral artery. There is mild stenosis of the intracranial portion of the right vertebral artery. Basilar artery is patent. Bilateral posterior cerebral arteries are patent. IMPRESSION: 1. No central vessel occlusion. No intracranial aneurysm. 2. Moderate stenosis of the intracranial portion of the left vertebral artery. 3. Moderate plaque within bilateral cavernous carotids without significant stenosis. ACT 112: Negative or not required by law. Electronically signed by: Dariusz Powers M.D. 06/12/2022 9:54 AM Neck CTA 06/11/22 22:08 NECK CTA HISTORY: dizzy, ?stroke, hx stenosis TECHNIQUE: Multiaxial CT images of the neck were performed following the intravenous administration of contrast to evaluate the major cervical vessels. Maximum intensity projection images were also obtained. All measurements were calculated based on NASCET criteria. A dose lowering technique was utilized adhering to the principles of ALARA. COMPARISON STUDY: None. FINDINGS: The aortic arch and proximal great vessels are widely patent. There is moderate to severe calcified plaque within the bilateral carotid bifurcations. This results in 75% focal stenosis within the distal right common carotid artery and 60-70 % stenosis within the proximal right internal carotid artery and takeoff of the right external carotid artery. There is also up to 50% focal stenosis at the distal left common carotid artery and 50% stenosis within the proximal left internal carotid artery. The bilateral mid to distal internal carotid arteries are patent. There is moderate left and mild right focal narrowing within the bilateral V4 segments. The remaining cervical vertebral arteries are widely patent. IMPRESSION: 1. Bilateral carotid bifurcation stenosis as described above due to the calcified plaque. 2. Mild right and moderate left focal narrowing within the V4 segments. 3. Please refer to same day head CT for further evaluation of the cerebral arteries. ACT 112: Negative or not required by law. Electronically signed by: Hernesto Allen M.D. 06/12/2022 8:23 AM Venous Doppler Study 06/11/22 22:47 RIGHT LOWER EXTREMITY VENOUS DOPPLER HISTORY: R>L swelling COMPARISON STUDY: None. FINDINGS: There is normal compressibility, flow, and augmentation within the right lower extremity deep venous system. A 2.2 x 1.1 x 2.2 cm slightly complex popliteal cyst. IMPRESSION: No DVT within the right lower extremity ACT 112: Negative or not required by law. Electronically signed by: Hernesto Allen M.D. 06/12/2022 7:16 AM Brain MRI 06/11/22 23:14 MRI OF THE BRAIN WITHOUT AND WITH IV CONTRAST CLINICAL HISTORY: abnormal CT findings COMPARISON STUDY: MRI of the brain July 28, 2018. Head CT and CTA of the head June 11, 2022. TECHNIQUE: Utilizing a 1.5 Kyung magnet and dedicated coil, multiplanar, multiecho imaging of the brain was performed pre and postcontrast administration. IV administration of 8.5 mL of Gadavist contrast was uneventful. FINDINGS: There are no foci of restricted diffusion to suggest acute infarct. No acute intracranial hemorrhage, midline shift or mass effect is present. Ventricular system is unremarkable. Basal cisterns are patent. There are no extra-axial collections. Flow-voids for the major intracranial vessels are present. There is no intracranial mass or pathologic enhancement. Extensive white matter T2 hyperintense foci suggest small vessel disease. Minimal progression since MRI of July 28, 2018. The pontine hypodensity shown on head CT performed earlier today was due to small vessel disease. Calvarial signal is within normal limits. IMPRESSION: 1. No acute intracranial findings. 2. Extensive small vessel disease. The pontine hypodensity on head CT was due to small vessel disease. 3. No intracranial mass or pathologic enhancement. ACT 112: Negative or not required by law. Electronically signed by: Dariusz Powers M.D. 06/12/2022 8:19 AM Knee X-Ray 06/13/22 11:32 XR knee RT 1 or 2V routine HISTORY: 89 years-old Male pain, r/o fractures, s/p fall acute right knee pain status post fall COMPARISON: None TECHNIQUE: 2 views of the right knee FINDINGS: Chondrocalcinosis. Mild lateral with moderate medial and patellofemoral compartment osteoarthritis. Arterial calcifications. Small joint effusion. Mild circumferential soft tissue prominence. No acute fracture or dislocation. IMPRESSION: Small joint effusion without acute fracture or dislocation. ACT 112: Negative or not required by law. The above report was generated using voice recognition software. It may contain grammatical, syntax or spelling errors. Electronically signed by: Roque Brink M.D. 06/13/2022 12:51 PM Pending Results Patient Have Any Pending Studies at Discharge: No Discharge Instructions Given to Patient (Per Discharging Provider) PLEASE REFER TO YOUR NEW MEDICATION LIST AND FOLLOW INSTRUCTIONS CAREFULLY. YOUR NEW MEDICATIONS INCLUDE: Aspirin 81 mg daily - for stroke prevention, always take aspirin with a full stomach to prevent stomach ulcers Stop taking Atenolol. Always remain well-hydrated. Drink at least 6 cups of water per day. PLEASE CALL YOUR PRIMARY CARE PHYSICIAN OR RETURN TO THE ER IF WITH WORSENING OF SYMPTOMS, INCLUDING Dizziness, weakness, chest pain, shortness of breath. FOLLOW UP WITH PRIMARY CARE PHYSICIAN OUTLINED ABOVE. Follow-up with the automobile mechanic assistant as scheduled above. You need to be referred to a vascular surgeon. Your primary care physician can help set up an appointment. Total Time Total Time Spent Total Time Spent (In Minutes): >30 minutes
== END 2022-06-14 16:57 | disposition home health service (06) | DRG 93 ==
LOC: ED 19:08 → SUATTDRO 22:42 → 2W 22:42

== ENCOUNTER 2022-07-26 10:25 | Inpatient (IN) ==
--- NOTE | 2022-07-26 10:55 | Emergency Department Note ---
History of Present Illness General Chief complaint: Illness Stated complaint: CVA SX, WEAKNESS, DIZZINESS Time Seen by Provider: 07/26/22 10:32 History of Present Illness 89-year-old male presents to the ED with a chief complaint of awakening a couple of days ago feeling lightheaded cold and achy. He states that he felt a little unsteady and felt like he might fall. The patient states that he went to the outpatient [facility] office today per the advice of a home health nurse. They felt that he had a new left facial droop and he seemed to have some trouble walking with his left leg and sent him in for stroke evaluation. The patient does have a history of TIA in the past. He does not live with anyone. Patient denies any specific focal deficits. No additional complaints at this time. Home Medications Medication Instructions Recorded Confirmed Type atorvastatin 40 mg tablet 40 mg PO QAM 06/11/22 06/11/22 History finasteride 5 mg tablet 5 mg PO DAILY 06/11/22 06/11/22 History folic acid 0.8 mg capsule 0.8 mg PO DAILY 06/11/22 06/11/22 History furosemide 20 mg tablet 20 mg PO MOWEFR 06/11/22 06/11/22 History glipizide 2.5 mg tablet, extended 2.5 mg PO QAM 06/11/22 06/11/22 History release 24 hr levothyroxine 50 mcg tablet 50 mcg PO QAM 06/11/22 06/11/22 History metformin 500 mg tablet 500 mg PO BIDM 06/11/22 06/11/22 History potassium chloride 10 mEq 10 meq PO MOWEFR 06/11/22 06/11/22 History tablet,extended release(part/cryst) aspirin 81 mg tablet,delayed 81 mg PO QAM 30 days #30 tabs 06/14/22 Rx release Allergies Allergy/AdvReac Type Severity Reaction Status Date / Time No Known Allergies Allergy Unknown Verified 06/11/22 22:06 Past Med/Surg History Medical History Carotid arterial disease Diabetes HLD (hyperlipidemia) HTN (hypertension) Moderate calcific aortic stenosis Surgical History S/P laparoscopic cholecystectomy Social History (Reviewed 07/26/22 @ 10:55 by KELSEY Phipps Smoking Status: Never smoker Hx Alcohol Use: No Hx Substance Use: No Preferred Language: Greek Communication Ability: Effective 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 Beliefs That Will Affect Care: None marital status: / Current Living Situation: Alone Current Living Situation Comment: apartment How many Children do You have: 1 Feels Safe at Home: Yes Assistive Devices: Cane Review of Systems A total of 10 systems reviewed and were otherwise negative Physical Exam Vital Signs Vital Signs - 24 hr 07/26/22 10:41 07/26/22 10:50 07/26/22 10:45 Temperature 36.5 C Temperature Source Oral Pulse Rate 98 H 92 H 93 H Pulse Rate from SpO2 Sensor 90 Respiratory Rate 20 20 15 Respiratory Effort / Characteristics Non-Labored Spontaneous Respiratory Depth Normal Respiratory Pattern Regular Blood Pressure 133/89 133/84 Blood Pressure Mean 103 100 Pulse Oximetry 98 98 98 Oxygen Delivery Method Room Air Room Air Sepsis Recent Fever Within 48 Hours No Sepsis New/Unexplained Change in Mental Status No Sepsis Action Taken by Nursing No Action Required 07/26/22 11:00 07/26/22 12:00 07/26/22 12:30 Temperature Temperature Source Pulse Rate 94 H 98 H 99 H Pulse Rate from SpO2 Sensor 93 H Respiratory Rate 18 28 H 21 Respiratory Effort / Characteristics Respiratory Depth Respiratory Pattern Blood Pressure 118/82 133/88 126/84 Blood Pressure Mean 94 103 98 Pulse Oximetry 99 Oxygen Delivery Method Sepsis Recent Fever Within 48 Hours Sepsis New/Unexplained Change in Mental Status Sepsis Action Taken by Nursing CONSTITUTIONAL/VITAL SIGNS: Reviewed / noted above. GENERAL: Non-toxic in appearance. INTEGUMENTARY: Warm, dry, and [place]. HEAD: Normocephalic. EYES: without scleral icterus or trauma. ENT/OROPHARYNX: clear and moist. LYMPHADENOPATHY/NECK: Is supple without lymphadenopathy or meningismus. RESPIRATORY: Clear to auscultation bilaterally. No increased work of breathing. CARDIOVASCULAR: Regular rate and rhythm. GI/ABDOMEN: Soft and nontender. No organomegaly or pulsatile mass. EXTREMITIES: Warm and well perfused. BACK: No CVA tenderness. NEUROLOGICAL: Intact without focal deficits. There are some mild left-sided facial droop on exam when the patient is at rest. Does seem to have normal strength and does not complain of any specific abnormalities noted per his sensation. Cranial nerves II through XII are otherwise intact. No focal weakness to the extremities. No sensory deficits. Normal cerebellar testing. PSYCHIATRIC: normal affect. MUSCULOSKELETAL: Normally developed with good muscle tone. TRIAGE NURSING DOCUMENTATION REVIEWED. Course Administered Medications Discontinued Medications Sodium Chloride (Nss) 500 mls @ 999 mls/hr IV .Q31M ANGELICA Stop: 07/26/22 11:30 Last Infusion: 07/26/22 11:34 Dose: 0 mls/hr Documented By: Admin: 07/26/22 11:00 Dose: 999 mls/hr Documented By: ANTIONE Medical Decision Making Differential Diagnosis Differential includes acute coronary syndrome, myocardial infarction, CVA, TIA, anemia, infection, pneumonia, UTI, pyelonephritis, poor nutrition, dehydration, electrolyte disturbance,hypoglycemia. Medical Records Attestation: I reviewed the patient's medical records. Home Medications Current Medication List: was personally reviewed by me Laboratory Data Attestation: I reviewed the patient's lab results. Result diagrams: 07/26/22 10:31 07/26/22 10:31 Lab Results 07/26/22 07/26/22 07/26/22 Range/Units 10:31 10:31 10:31 WBC 9.94 (4.8-10.8) K/ul RBC 4.46 L (4.63-6.08) M/uL Hgb 13.4 L (14.0-18.0) g/dl Hct 40.8 (40.1-51.0) % MCV 91.5 (80.0-100.0) fL MCH 30.0 (25.0-34.0) pg MCHC 32.8 (32.0-36.0) g/dL RDW Std Deviation 49.3 H (36.4-46.3) fL RDW Coeff of [place] 14.7 H (11.5-14.5) % Plt Count 282 (130-400) K/uL MPV 10.6 (9.4-12.4) fL Immature Gran % (Auto) 0.4 % Neut % (Auto) 72.0 % Lymph % (Auto) 18.9 % [place] % (Auto) 6.7 % Eos % (Auto) 1.4 % Baso % (Auto) 0.6 % Neut # (Auto) 7.15 H (1.4-6.5) K/uL Lymph # (Auto) 1.88 (1.2-3.4) K/uL [place] # (Auto) 0.67 (0.24-0.82) K/uL Eos # (Auto) 0.14 (0-0.50) K/uL Baso # (Auto) 0.06 (0-0.2) K/uL Immature Gran # (Auto) 0.04 H (0.00-0.02) K/uL Sodium 142 (136-145) mmol/L Potassium 3.8 (3.5-5.1) mmol/L Chloride 108 H (98-107) mmol/L Carbon Dioxide 24 (21-32) mmol/L Anion Gap 10 (3-11) BUN 19 (6-23) mg/dl Creatinine 1.38 (0.6-1.4) mg/dl Est Cr Clr Drug Dosing 40.8 ml/min Est GFR ( Amer) 52.2 ml/min Est GFR (Non-Af Amer) 45.0 ml/min BUN/Creatinine Ratio 13.8 (10-20) Glucose 114 H (70-99(Fasting)) mg/dl Calcium 9.0 (8.5-10.1) mg/dl Total Bilirubin 1.2 H (0.2-1.0) mg/dl AST 17 (13-39) U/L ALT 12 (7-52) U/L Alkaline Phosphatase 88 (34-104) U/L Troponin I High Sens 453.4 H* D (0-20) pg/ml Total Protein 7.5 (6.0-8.3) gm/dl Albumin 3.3 L (3.4-5.0) gm/dl Globulin 4.2 H (2.5-4.0) gm/dl Albumin/Globulin Ratio 0.8 L (0.9-2) TSH 8.624 H (0.300-4.500) uIu/ml Free T4 1.03 (0.61-1.60) ng/dl Urine Color Urine Appearance (Clear) Urine pH (4.5-7.5) Ur Specific [place] (1.000-1.030) Urine Protein (Negative) Urine Glucose (UA) (Negative) Urine Ketones (Negative) Urine Blood (Negative) Urine Nitrite (Negative) Urine Bilirubin (Negative) Urine Urobilinogen (Negative) Ur Leukocyte Esterase (Negative) 07/26/22 Range/Units 11:58 WBC (4.8-10.8) K/ul RBC (4.63-6.08) M/uL Hgb (14.0-18.0) g/dl Hct (40.1-51.0) % MCV (80.0-100.0) fL MCH (25.0-34.0) pg MCHC (32.0-36.0) g/dL RDW Std Deviation (36.4-46.3) fL RDW Coeff of [place] (11.5-14.5) % Plt Count (130-400) K/uL MPV (9.4-12.4) fL Immature Gran % (Auto) % Neut % (Auto) % Lymph % (Auto) % [place] % (Auto) % Eos % (Auto) % Baso % (Auto) % Neut # (Auto) (1.4-6.5) K/uL Lymph # (Auto) (1.2-3.4) K/uL [place] # (Auto) (0.24-0.82) K/uL Eos # (Auto) (0-0.50) K/uL Baso # (Auto) (0-0.2) K/uL Immature Gran # (Auto) (0.00-0.02) K/uL Sodium (136-145) mmol/L Potassium (3.5-5.1) mmol/L Chloride (98-107) mmol/L Carbon Dioxide (21-32) mmol/L Anion Gap (3-11) BUN (6-23) mg/dl Creatinine (0.6-1.4) mg/dl Est Cr Clr Drug Dosing ml/min Est GFR ( Amer) ml/min Est GFR (Non-Af Amer) ml/min BUN/Creatinine Ratio (10-20) Glucose (70-99(Fasting)) mg/dl Calcium (8.5-10.1) mg/dl Total Bilirubin (0.2-1.0) mg/dl AST (13-39) U/L ALT (7-52) U/L Alkaline Phosphatase (34-104) U/L Troponin I High Sens (0-20) pg/ml Total Protein (6.0-8.3) gm/dl Albumin (3.4-5.0) gm/dl Globulin (2.5-4.0) gm/dl Albumin/Globulin Ratio (0.9-2) TSH (0.300-4.500) uIu/ml Free T4 (0.61-1.60) ng/dl Urine Color Yellow Urine Appearance Clear (Clear) Urine pH 5.0 (4.5-7.5) Ur Specific [place] 1.010 (1.000-1.030) Urine Protein Negative (Negative) Urine Glucose (UA) Negative (Negative) Urine Ketones Negative (Negative) Urine Blood Negative (Negative) Urine Nitrite Negative (Negative) Urine Bilirubin Negative (Negative) Urine Urobilinogen Negative (Negative) Ur Leukocyte Esterase Negative (Negative) Imaging Data Radiologist's Impression: Head CT 07/26/22 10:[address] DOSE: 477.89 mGycm HISTORY: weakness TECHNIQUE: Multiaxial CT images of the head were performed without the use of intravenous contrast. Automated exposure control was utilized for this study. A dose lowering technique was utilized adhering to the principles of ALARA. Comparison: Head CT 06/11/2022. Findings: Small fluid level within the left sphenoid sinus. The mastoid air cells appear clear. The calvarium and skull base are intact. There is no mass, hematoma, midline shift, acute infarct. White matter hypodensity is nonspecific but suggestive of microvascular ischemic change. The ventricles and sulci demonstrate mild age-related involutional changes. 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 Impression: No significant change compared to the prior study. No acute intracranial abnormality. ACT 112: Negative or not required by law. Electronically signed by: Hernesto Allen M.D. 07/26/2022 11:40 AM Chest X-Ray 07/26/22 10:48 XR chest 1V portable HISTORY: weakness COMPARISON: Chest 06/11/2022. FINDINGS: No pneumothorax. The heart remains mildly enlarged. There are trace bilateral pleural effusions. There is mild central pulmonary vascular congestion without overt edema. Chronic interstitial thickening remains unchanged. Left basilar linear densities are noted. This favors subsegmental atelectasis. IMPRESSION: No significant change in the cardiomegaly with mild central pulmonary vascular congestion. ACT 112: Negative or not required by law. Electronically signed by: Hernesto Allen M.D. 07/26/2022 11:11 AM ECG Data Attestation: I personally reviewed and interpreted this ECG as follows: Additional Comments: Twelve-lead EKG: Per my interpretation shows a sinus rhythm at a rate of 93. T wave inversions laterally. No ST elevation. No PVCs. Normal QTC. MDM Narrative 89-year-old male presents with a complaint of some lightheadedness, achiness and a sensation of feeling cold a couple days ago. Went to the [facility]Ps for an appointment today and was sent here for concerns about some left-sided facial droop. Unknown timing for this. May be chronic. Patient does not recognize any feeling of facial abnormality. Lives alone. No focal deficits on my exam. Vital signs are stable. History of TIA. Currently taking aspirin. Twelve-lead EKG shows a sinus rhythm at a rate of 93. CT scan of the brain did not show acute process. CBC and chemistry panel was unremarkable. Troponin was 453. Chest x-ray did not show acute process. The patient was told the results. He is not having chest pain at this time. He does appear to have some exertional dyspnea just with movement on the bed and sometimes talking. The patient will be seen by the hospitalist for further evaluation and care. Impression & Plan Exertional dyspnea, Elevated troponin Discharge Plan Visit Data Chief Complaint: Illness Stated Complaint: CVA SX, WEAKNESS, DIZZINESS ED Provider: Terrell Fernando Discharge Problem: Exertional dyspnea, Elevated troponin Patient Disposition: Being Evaluated by Hospitalist Forms Stand Alone Forms: My [facility] Prescriptions Prescriptions: No Action atorvastatin 40 mg tablet 40 mg PO QAM metformin 500 mg tablet 500 mg PO BIDM glipizide 2.5 mg tablet extended release 24hr 2.5 mg PO QAM levothyroxine 50 mcg tablet 50 mcg PO QAM furosemide 20 mg tablet 20 mg PO MOWEFR finasteride 5 mg tablet 5 mg PO DAILY potassium chloride 10 mEq tablet,ER particles/crystals 10 meq PO MOWEFR folic acid 0.8 mg Capsule 0.8 mg PO DAILY aspirin 81 mg Tablet,Delayed Release (Dr/Ec) 81 mg PO QAM 30 Days Qty: 30 2RF Rx Instructions: Always take with a full stomach. Referrals Referrals: Jaylan Lara MD [Primary Care Provider] -
[2022-07-26] MEDS ORDERED: SODIUM CHLORIDE 0.9% 500 ML IV SCH (11:00)
[2022-07-26 11:08] LABS: Basophils # (auto) 0.06 K/uL (0-0.2); Basophils % (auto) 0.6 %; Eosinophils # (auto) 0.14 K/uL (0-0.50); Eosinophils % (auto) 1.4 %; Hematocrit (blood only) 40.8 % (40.1-51.0); Hemoglobin 13.4 g/dl (14.0-18.0); Immature Granulocytes # (auto) 0.04 K/uL (0.00-0.02); Immature Granulocytes % (auto) 0.4 %; Lymphocytes # (auto) 1.88 K/uL (1.2-3.4); Lymphocytes % (auto) 18.9 %; Mean Corpuscular Hgb Conc 32.8 g/dL (32.0-36.0); Mean Corpuscular Volume 91.5 fL (80.0-100.0); Mean Platelet Volume 10.6 fL (9.4-12.4); Monocytes # (auto) 0.67 K/uL (0.24-0.82); Monocytes % (auto) 6.7 %; Neutrophils # (auto) 7.15 K/uL (1.4-6.5); Platelet Count 282 K/uL (130-400); RDW Coefficient of Variation 14.7 % (11.5-14.5); RDW Standard Deviation 49.3 fL (36.4-46.3); Red Blood Count 4.46 M/uL (4.63-6.08); White Blood Count 9.94 K/ul (4.8-10.8)
--- NOTE | 2022-07-26 11:13 | XRay Report ---
XR chest 1V portable HISTORY: weakness COMPARISON: Chest 06/11/2022. FINDINGS: No pneumothorax. The heart remains mildly enlarged. There are trace bilateral pleural effus ions. There is mild central pulmonary vascular congestion without overt edema. Chronic interstitial t hickening remains unchanged. Left basilar linear densities are noted. This favors subsegmental atelec tasis. IMPRESSION: No significant change in the cardiomegaly with mild central pulmonary vascular congestion. ACT 112: Negative or not required by law. Electronically signed by: Hernesto Allen M.D. 07/26/2022 11:11 AM
[2022-07-26 11:24] LABS: Albumin Globulin Ratio 0.8 (0.9-2); Albumin Level 3.3 gm/dl (3.4-5.0); BUN Creatinine Ratio 13.8 (10-20); Bilirubin,Total 1.2 mg/dl (0.2-1.0); Creatinine Clr Calc Pharmacy 40.8 ml/min; Est GFR (African American) 52.2 ml/min; Globulin 4.2 gm/dl (2.5-4.0); Potassium 3.8 mmol/L (3.5-5.1); Total Protein 7.5 gm/dl (6.0-8.3)
[2022-07-26 11:29] LABS: Troponin I High Sensitivity 453.4 pg/ml (0-20)
[2022-07-26 11:35] LABS: Thyroid Stimulating Hormone 8.624 uIu/ml (0.300-4.500)
--- NOTE | 2022-07-26 11:42 | CT Scan Report ---
HEAD CT NONCONTRAST CT DOSE: 477.89 mGycm HISTORY: weakness TECHNIQUE: Multiaxial CT images of the head were performed without the use of intravenous contrast. A utomated exposure control was utilized for this study. A dose lowering technique was utilized adheri ng to the principles of ALARA. Comparison: Head CT 06/11/2022. Findings: Small fluid level within the left sphenoid sinus. The mastoid air cells appear clear. The c alvarium and skull base are intact. There is no mass, hematoma, midline shift, acute infarct. White m atter hypodensity is nonspecific but suggestive of microvascular ischemic change. The ventricles and sulci demonstrate mild age-related involutional changes. There is an old lacunar infarct within the r ight thalamus, unchanged. Impression: No significant change compared to the prior study. No acute intracranial abnormality. ACT 112: Negative or not required by law. Electronically signed by: Hernesto Allen M.D. 07/26/2022 11:40 AM
[2022-07-26 12:07] LABS: T4 Free Thyroxine 1.03 ng/dl (0.61-1.60)
[2022-07-26 12:20] LABS: Appearance Urine Clear (Clear); Bilirubin Urine Negative (Negative); Blood Urine Negative (Negative); Color Urine Yellow; Glucose Urine UA Negative (Negative); Ketones Urine Negative (Negative); Leukocyte Esterase Urine Negative (Negative); Nitrite Urine Negative (Negative); Protein Urine Negative (Negative); Urobilinogen Urine Negative (Negative)
--- NOTE | 2022-07-26 12:31 | Electrocardiogram Report ---
Test Reason : Blood Pressure : / mmHG Vent. Rate : 093 BPM Atrial Rate : 093 BPM P-R Int : 248 ms QRS Dur : 100 ms QT Int : 408 ms P-R-T Axes : 070 -03 162 degrees QTc Int : 507 ms Sinus rhythm with 1st degree A-V block with Premature atrial complexes Left ventricular hypertrophy with repolarization abnormality Prolonged QT Abnormal ECG When compared with ECG of 12-JUN-2022 01:02, Premature ventricular complexes are no longer Present Premature atrial complexes are now Present Confirmed by Koffi Madrigal ([id number]) on 07/26/2022 12:31:23 PM Referred By: Confirmed By:Koffi Madrigal
--- NOTE | 2022-07-26 12:35 | History & Physical Report ---
Date of Service July 26, 2022 Assessment & Plan (1) Stroke-like symptoms: (2) TIA (transient ischemic attack): Plan: Patient is 89 y/o M with TIA, PMH HTN, HLD, DM II, aortic stenosis, carotid artery disease, chronic diastolic heart failure, CKD III, hypothyroidism, BPH presented to ER with c/o 2 days ago awoke with lightheadedness, leg weakness, feeling cold. Today PCP office difficulty getting up out of chair and thought to have left sided weakness and facial droop In ER vitals stable. No significant electrolyte abnormality CT head: No acute intracranial abnormality. In ER given aspirin TIA vs CVA MRI brain pending Tele to monitor for arrhythmias Lipids and A1c in AM Recent Echo on 06/12/22. Repeat limited echo with bubble study today 06/11/22: CTA neck: 75% stenosis distal right common carotid artery, 60-70% stenosis proximal right internal carotid artery, 50% stenosis distal left common carotid artery, 50% stenosis proximal left internal carotid artery PT/OT consult Continue aspirin, statin Neurology consult (3) Elevated troponin: Plan: High sensitivity Troponin: 453. Previous 150's-260) Denies CP, SOB 06/12/2022 echo: EF: 30-35%, moderate dilation left ventricle, mild concentric left ventricular hypertrophy, severe left atrial enlargement, severe calcific aortic valve stenosis, severe mitral annular calcification, mild mitral stenosis Trend troponin Repeat limited echo to assess wall motion abnormality Cardiology consult (4) Carotid arterial disease: Plan: Known carotid artery disease. Previously asymptomatic Right internal carotid artery stenosis 60-70%. Left internal carotid artery stenosis 50% Was recommended to have repeat carotid ultrasound in 6 months, with no acute intervention recommended by vascular surgery previously in 06/2022 Continue aspirin (5) DM2 (diabetes mellitus, type 2): Plan: A1c: 6.8 in 03/08/22 Hold metformin, glipizide Novolog sliding scale per protocol (6) Aortic stenosis: Plan: 06/12/2022 echo: severe calcific aortic valve stenosis (7) Chronic diastolic heart failure: Plan: History diastolic, systolic heart failure Appears euvolemic EF: 30-35% on echo in 06/27. Prior EF: 50-54% on echo in 03/27 Continue lasix on mon, wed, frid schedule (8) HTN (hypertension): Plan: Stable atenolol was discontinued in 06/2022 secondary to BP's running on lower side Monitor (9) HLD (hyperlipidemia): Plan: Continue atorvastatin (10) CKD (chronic kidney disease), stage III: Plan: Cr: 1.38. Baseline 1.1-1.3 Monitor renal functions, avoid nephrotoxic agents when possible (11) Hypothyroidism: Plan: TSH: 8. Was 4 in 06/2022 Continue levothyroxine Will need outpatient follow up of TSH DVT Prophylaxis Heparin SQ DNR/DNI as per discussion with pt Follows with Dr Lara for routine care Pt was seen and care coordinated with Dr Manzano. See addendum History of Present Illness Chief Complaint: Weakness Primary Care Provider: Jaylan Lara MD Patient is 89 y/o M with PMH TIA, HTN, HLD, DM II, aortic stenosis, carotid artery disease, chronic diastolic heart failure, CKD III, hypothyroidism, BPH presented to ER with c/o weakness. Patient reports 2 days ago he woke up and felt cold, lightheaded and felt like his legs were giving out on him. Denies any noted upper extremity weakness. Denies a fall. His home health nurse saw him that day and recommended ER evaluation however patient chose to see PCP. Saw PCP today and while in waiting room he was unable to get up off the chair and needed assistance which is unusual for him. PCP also felt patient had left sided weakness and facial droop and patient was referred to ER. 06/11/22-06/14/22 for fall and was discharged on aspirin 81mg for carotid stenosis and atenolol was discontinued secondary to lower BP's. Denies fever/chills, diaphoresis, N/V/D/C, LINDSAY, syncope, vision changes, neck pain, CP, SOB, orthopnea, palpitations, cough, sore throat, choking, otalgia, rhinorrhea, abdominal pain, paresthesias, extremity edema, rashes, urinary symptoms. Allergies Allergy/AdvReac Type Severity Reaction Status Date / Time No Known Allergies Allergy Unknown Verified 06/11/22 22:06 Home Medications Medication Instructions Recorded Confirmed Type atorvastatin 40 mg tablet 40 mg PO QAM 06/11/22 07/26/22 History finasteride 5 mg tablet 5 mg PO DAILY 06/11/22 07/26/22 History folic acid 0.8 mg capsule 0.8 mg PO DAILY 06/11/22 07/26/22 History furosemide 20 mg tablet 20 mg PO MOWEFR 06/11/22 07/26/22 History glipizide 2.5 mg tablet, extended 2.5 mg PO QAM 06/11/22 07/26/22 History release 24 hr levothyroxine 50 mcg tablet 50 mcg PO QAM 06/11/22 07/26/22 History metformin 500 mg tablet 500 mg PO BIDM 06/11/22 07/26/22 History potassium chloride 10 mEq 10 meq PO MOWEFR 06/11/22 07/26/22 History tablet,extended release(part/cryst) aspirin 81 mg tablet,delayed 81 mg PO QAM 30 days #30 tabs 06/14/22 07/26/22 Rx release Past Med/Surg History Medical History (Updated 07/26/22 @ 17:24 by Denise Santana PA-C) Carotid arterial disease Chronic diastolic heart failure CKD (chronic kidney disease), stage III DM2 (diabetes mellitus, type 2) HLD (hyperlipidemia) HTN (hypertension) Hypothyroidism Moderate calcific aortic stenosis TIA (transient ischemic attack) Surgical History (Updated 07/26/22 @ 17:11 by Denise Santana PA-C) History of cataract surgery S/P laparoscopic cholecystectomy Family History (Updated 07/26/22 @ 17:11 by Denise Santana PA-C) Other Cancer Parkinson disease Social History Smoking Status: Never smoker Hx Alcohol Use: No Hx Substance Use: No Preferred Language: Icelandic Communication Ability: Effective Band Director Required: Yes Beliefs That Will Affect Care: None marital status: / Current Living Situation: Alone Current Living Situation Comment: apartment How many Children do You have: 1 Feels Safe at Home: Yes Safety Concerns: Feels Safe At This Time Assistive Devices: Cane, Denture - Upper, Glasses and Walker Review of Systems Review of Systems: All systems reviewed & are unremarkable except as noted in HPI & below Physical Exam Physical Exam: General: no distress, WDWN Head: normocephalic, atraumatic Eyes: PERRL, EOM's intact, conjunctiva non-injected, anicteric ENT: +hard of hearing, normal inspection external ears, nose, mucous membranes mildly dry Neck: supple, trachea midline Lungs: clear, no respiratory distress, no wheezing/rhonchi/rales CV: RRR, + murmur, trace pretibial edema Abd: normal BS, soft, non-tender Ext: no cyanosis, no calf tenderness Neuro: A&O x 3, very pleasant and enthusiastic; facial sensation is intact and symmetric, +slight left mouth drooping noted however able to smile and frown without noted abnormality, ?unsure of baseline, soft palate elevates symmetrically, no dysarthria, shoulder shrug intact, tongue is midline, normal movement, no fasciculations, Left arm 5/5 strength, left leg 4/5 strength, right arm 5/5 strength, right leg 5/5 strength Skin: warm, dry Results & Data Results & Data ([facility]) Vital Signs (Past 12 Hours) Vital Signs Temp Pulse Resp BP Pulse Ox O2 Del Method 07/26/22 12:00 98 H 28 H 133/88 07/26/22 11:00 94 H 18 118/82 99 07/26/22 10:45 93 H 15 133/84 98 07/26/22 10:50 92 H 20 98 Room Air 07/26/22 10:41 36.5 C 98 H 20 133/89 98 Room Air Laboratory Results Short CBC 07/26/22 Range/Units 10:31 WBC 9.94 (4.8-10.8) K/ul Hgb 13.4 L (14.0-18.0) g/dl Hct 40.8 (40.1-51.0) % Plt Count 282 (130-400) K/uL BMP 07/26/22 10:31 Sodium 142 Potassium 3.8 Chloride 108 H Carbon Dioxide 24 BUN 19 Creatinine 1.38 Glucose 114 H Calcium 9.0 Liver Function 07/26/22 Range/Units 10:31 Total Bilirubin 1.2 H (0.2-1.0) mg/dl AST 17 (13-39) U/L ALT 12 (7-52) U/L Alkaline Phosphatase 88 (34-104) U/L Albumin 3.3 L (3.4-5.0) gm/dl Urine 07/26/22 Range/Units 11:58 Urine Color Yellow Urine Appearance Clear (Clear) Urine pH 5.0 (4.5-7.5) Ur Specific Ashley 1.010 (1.000-1.030) Urine Protein Negative (Negative) Urine Glucose (UA) Negative (Negative) Diagnostic Findings Head CT 07/26/22 10:[address] DOSE: 477.89 mGycm HISTORY: weakness TECHNIQUE: Multiaxial CT images of the head were performed without the use of intravenous contrast. Automated exposure control was utilized for this study. A dose lowering technique was utilized adhering to the principles of ALARA. Comparison: Head CT 06/11/2022. Findings: Small fluid level within the left sphenoid sinus. The mastoid air cells appear clear. The calvarium and skull base are intact. There is no mass, hematoma, midline shift, acute infarct. White matter hypodensity is nonspecific but suggestive of microvascular ischemic change. The ventricles and sulci demonstrate mild age-related involutional changes. 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 Impression: No significant change compared to the prior study. No acute intracranial abnormality. ACT 112: Negative or not required by law. Electronically signed by: Hernesto Allen M.D. 07/26/2022 11:40 AM Chest X-Ray 07/26/22 10:48 XR chest 1V portable HISTORY: weakness COMPARISON: Chest 06/11/2022. FINDINGS: No pneumothorax. The heart remains mildly enlarged. There are trace bilateral pleural effusions. There is mild central pulmonary vascular congestion without overt edema. Chronic interstitial thickening remains unchanged. Left basilar linear densities are noted. This favors subsegmental atelectasis. IMPRESSION: No significant change in the cardiomegaly with mild central pulmonary vascular congestion. ACT 112: Negative or not required by law. Electronically signed by: Hernesto Allen M.D. 07/26/2022 11:11 AM Brain MRI 07/26/22 13:09 MR brain wo con CLINICAL HISTORY: stroke like symptoms TECHNIQUE: Multiplanar and multisequence MR images of the brain were obtained without intravenous contrast. Comparison: Comparison is made to MRI brain 06/21/2022 FINDINGS: No abnormal restricted diffusion is identified. Extensive white matter T2 hyperintensities are seen, similar in extent to prior exam. The ventricular system is normal in appearance. No mass is seen. There is no mass effect or midline shift. There is no evidence of acute intraparenchymal hemorrhage. No extra axial fluid collections are seen. The corpus callosum, pituitary gland, and cerebellar tonsils appear grossly unremarkable. Flow voids of the major intracranial arterial vessels are identified. The imaged portions of the paranasal sinuses, mastoid air cells, and orbits are unremarkable. IMPRESSION: 1. No acute abnormality and in particular no evidence of acute infarct. 2. Redemonstration of extensive T2 white matter hyperintensity compatible with chronic microvascular disease. ACT 112: Negative or not required by law. Electronically signed by: Estrada Andujar M.D. 07/26/2022 3:01 PM ECG Rhythm: normal sinus Findings: + 1st degree AV block and + PAC Supervising Physician Co-Signing Physician Notes I have seen and examined the patient and have discussed the case with the provider above. I agree with the assessment and plan as stated. 89-year-old man with a history of diabetes, carotid artery disease and severe aortic stenosis presents to the ER after some difficulty walking and weakness in his left leg. The patient lives alone and was seen by a home health nurse who was concerned about his mobility. When he was in the outpatient clinic he had difficulty standing up in the chair provider notes his left leg would not hold him. Note reports that he had trouble with his left leg getting out of the car when he got there. He typically takes baby aspirin and Lipitor 40 every day. There was also a question of facial droop which is currently not present. He denies any chest pain or shortness of breath. On exam patient is spirited and oriented reporting no symptoms. Cranial nerves II through XII are grossly intact throughout. Memory is intact, speech is normal. He is able to move his arms and legs symmetrically denies any numbness. Cardiopulmonary exam is within normal limits and he examines as euvolemic. Abdomen is soft nontender nondistended. Skin is warm and dry. Work-up in the ER includes a CBC which was normal. BMP was normal. No LFT issues. Troponin elevated at 453 with no chest pain and an EKG with LVH and repolarization abnormality and a prolonged QTc. Patient had a known history of structural heart disease with last echocardiogram in June 2022 revealing ejection fraction of 30 to 35% with left ventricular hypertrophy and normal right ventricular systolic function. He also has severe aortic valve stenosis. Chest x-ray today reveals mild central pulmonary vascular congestion. Brain MRI reveals no acute abnormality with evidence of chronic microvascular disease. Agree with plan to consult neurology, physical and Occupational Therapy with history of weakness and speech pathology. It is possible this recurrent left leg weakness may be related to a TIA. Will discuss with neuro whether DAPT is indicated at this point without evidence of acute stroke per se. Continue baby aspirin and Lipitor. We will continue to trend troponin, although suspect demand ischemia in the setting of structural heart disease with cardiomyopathy. Cardiology consult has been placed. DO Jose Juan
[2022-07-26] MEDS ORDERED: ASPIRIN CHEW 324 MG PO STA (13:13)
--- NOTE | 2022-07-26 15:02 | Magnetic Resonance Report ---
MR brain wo con CLINICAL HISTORY: stroke like symptoms TECHNIQUE: Multiplanar and multisequence MR images of the brain were obtained without intravenous con trast. Comparison: Comparison is made to MRI brain 06/21/2022 FINDINGS: No abnormal restricted diffusion is identified. Extensive white matter T2 hyperintensities are seen, similar in extent to prior exam. The ventricular system is normal in appearance. No mass is seen. The re is no mass effect or midline shift. There is no evidence of acute intraparenchymal hemorrhage. No extra axial fluid collections are seen. The corpus callosum, pituitary gland, and cerebellar tonsils appear grossly unremarkable. Flow voids of the major intracranial arterial vessels are identified. The imaged portions of the para nasal sinuses, mastoid air cells, and orbits are unremarkable. IMPRESSION: 1. No acute abnormality and in particular no evidence of acute infarct. 2. Redemonstration of extensive T2 white matter hyperintensity compatible with chronic microvascular disease. ACT 112: Negative or not required by law. Electronically signed by: Estrada Andujar M.D. 07/26/2022 3:01 PM
[2022-07-26] MEDS ORDERED: GLUCOSE 40% GEL 15 GM TUBE PO PRN (15:25)
[2022-07-26] MEDS ORDERED: DEXTROSE 50% 50 ML SYRINGE IV PRN (15:25)
[2022-07-26] MEDS ORDERED: ACETAMINOPHEN 325 MG TAB PO PRN (15:25)
[2022-07-26] MEDS ORDERED: PHARMACIST DISCHARGE MED REC CONSULT PRN (15:25)
[2022-07-26] MEDS ORDERED: POLYETHYLENE (MIRALAX) 17 GM PACK PO PRN (15:25)
[2022-07-26] MEDS ORDERED: GLUCOSE 10 TAB/TUBE PO PRN (15:25)
[2022-07-26] MEDS ORDERED: GLUCAGON FOR INJ 1 MG VIAL SQ PRN (15:25)
[2022-07-26] MEDS ORDERED: CARBOHYDRATES FOR HYPOGLYCEMIA PO PRN (15:25)
--- NOTE | 2022-07-26 16:22 | Cardiology Consultation ---
Date of Consultation July 26, 2022 Assessment & Plan (1) TIA (transient ischemic attack): (2) Elevated troponin: (3) Aortic stenosis: (4) Carotid arterial disease: -Patient with history of severe calcific aortic stenosis, echocardiogram performed a month ago revealed decline in his ejection fraction to 30-35% having been 50-54% in March,. -He has no symptoms suggestive angina and his volume status appears to be stable at present. Elevation in troponin is likely due to demand ischemia in the s etting of LV dysfunction and severe . -With regards to his strokelike symptoms, he feels well at present. It is encouraging that the MRI reveals no acute stroke. Continue aspirin and statin therapy.-Concerns with regards to his candidacy for clopidogrel from a bleeding standpoint. -The patient had previously been referred to the [facility] comprehensive valve clinic for consideration of transcatheter aortic valve implantation, but he did not keep the appointment. He has issues with regards to transportation, and is unable to make appointments traveling from [place] to [facility] to [place]. His only family member in the area is his sister. -His recent strokelike symptoms certainly make him a high risk candidate for TAVR even if the logistical obstacles could be overcome. Recommend trending troponin. Update echocardiogram. History of Present Illness Attending Physician: Tran Manzano, History of Present Illness Mr Morris is an 89 year old male seen in cardiology consultation per the request of Bharath Santana and Dr Manzano for the evaluation of stroke -like symptoms and an elevation in troponin level. [facility] as an [facility] on 06/[facility]. Patient reportedly felt generalized weakness, and felt like he was going to fall. He was assessed by a home health nurse, and then [facility] There he was found to have was felt to be a new left facial droop, and left lower extremity weakness. He was therefore referred to the emergency room for further evaluation. CT of the brain and MRI of the brain without evidence of acute infarct today. Cardiology consulted for elevation in high-sensitivity troponin of 453 PG per mL this morning at 10:31 AM. A repeat level has recently been drawn and is pending at present. Patient denies any chest discomfort or worsening shortness of breath. Past Medical History: Patient has a history of aortic stenosis. Since his 2019 follow-up visit, he had moved to [place] to live with his son for few years, and reestablished with our practice in 2021. He has been found to have severe aortic stenosis as documented on outpatient echocardiogram within the [facility] in March, with ejection fraction in the range of 50 to 54% at that time. At time of recent admission to [facility] 06/12/2022, repeat echocardiogram revealed interval decline in the ejection fraction to 30-35% with severe left atrial lodgment, severe calcific aortic stenosis by 2D visualization, peak CW velocity was 3.4 m/s, mean gradient 27 mmHg, MARIUM 0.63 cm During admission for fall/TIA June, patient seen in vascular surgery consultation for bilateral carotid stenosis disease, right internal carotid artery stenosis of 70%, left internal carotid artery 50% by CT angiogram. Follo w-up duplex at a 6-month interval recommended at that time Allergies Allergy/AdvReac Type Severity Reaction Status Date / Time No Known Allergies Allergy Unknown Verified 06/11/22 22:06 Home Medications Medication Instructions Recorded Confirmed Type atorvastatin 40 mg tablet 40 mg PO QAM 06/11/22 07/26/22 History finasteride 5 mg tablet 5 mg PO DAILY 06/11/22 07/26/22 History folic acid 0.8 mg capsule 0.8 mg PO DAILY 06/11/22 07/26/22 History furosemide 20 mg tablet 20 mg PO MOWEFR 06/11/22 07/26/22 History glipizide 2.5 mg tablet, extended 2.5 mg PO QAM 06/11/22 07/26/22 History release 24 hr levothyroxine 50 mcg tablet 50 mcg PO QAM 06/11/22 07/26/22 History metformin 500 mg tablet 500 mg PO BIDM 06/11/22 07/26/22 History potassium chloride 10 mEq 10 meq PO MOWEFR 06/11/22 07/26/22 History tablet,extended release(part/cryst) aspirin 81 mg tablet,delayed 81 mg PO QAM 30 days #30 tabs 06/14/22 07/26/22 Rx release Patient History Medical History (Updated 07/26/22 @ 17:24 by Denise Santana PA-C) Carotid arterial disease Chronic diastolic heart failure CKD (chronic kidney disease), stage III DM2 (diabetes mellitus, type 2) HLD (hyperlipidemia) HTN (hypertension) Hypothyroidism Moderate calcific aortic stenosis TIA (transient ischemic attack) Surgical History (Updated 07/26/22 @ 17:11 by Denise Santana PA-C) History of cataract surgery S/P laparoscopic cholecystectomy Family History (Updated 07/26/22 @ 17:11 by Denise Santana PA-C) Other Cancer Parkinson disease Social History Smoking Status: Never smoker Hx Alcohol Use: No Hx Substance Use: No Preferred Language: Turkmen Communication Ability: Effective Operations Chief Required: Yes Beliefs That Will Affect Care: None marital status: / Current Living Situation: Alone Current Living Situation Comment: apartment How many Children do You have: 1 Feels Safe at Home: Yes Safety Concerns: Feels Safe At This Time Assistive Devices: Cane, Denture - Upper, Glasses and Walker Review of Systems Review of Systems: All systems reviewed & are unremarkable except as noted in HPI & below Physical Exam Physical Exam: Temp Pulse Resp BP Pulse Ox O2 Del Method 36.4 C L 84 18 132/77 100 07/26/22 15:04 07/26/22 16:33 07/26/22 15:04 07/26/22 15:04 07/26/22 15:04 07/26/22 15:04 Constitutional: no acute distress Respiratory: normal respiratory effort, lungs clear to auscultation Cardiovascular: Rate/Rhythm: regular rate and regular rhythm Heart Sounds: normal S1, normal S2 and + murmur (2/6 systolic murmur) Gastrointestinal (Abdomen): normal bowel sounds, soft, nontender, no hepatosplenomegaly Neurologic: Patient with left facial droop, which I had not previously appreciated at the time of his previous outpatient visit, mild subjective left lower extremity weakness appears to be mildly improved at this point. Results & Data ([facility]) Vital Signs (Past 12 Hours) Vital Signs Temp Pulse Pulse Resp BP BP Pulse Ox 07/26/22 15:04 07/26/22 15:04 36.4 C L 91 H 18 132/77 100 07/26/22 14:00 96 H 20 98 07/26/22 14:00 141/84 H 07/26/22 13:30 97 H 26 H 113/74 07/26/22 13:00 99 H 30 H 122/90 07/26/22 12:30 99 H 21 126/84 07/26/22 12:00 98 H 28 H 133/88 07/26/22 11:00 94 H 18 118/82 99 07/26/22 10:45 93 H 15 133/84 98 07/26/22 10:50 92 H 20 98 07/26/22 10:41 36.5 C 98 H 20 133/89 98 O2 Del Method 07/26/22 15:04 Room Air 07/26/22 15:04 Room Air 07/26/22 14:00 07/26/22 14:00 07/26/22 13:30 07/26/22 13:00 07/26/22 12:30 07/26/22 12:00 07/26/22 11:00 07/26/22 10:45 07/26/22 10:50 Room Air 07/26/22 10:41 Room Air Laboratory Results Cardiac Enzymes 07/26/22 Range/Units 10:31 AST 17 (13-39) U/L Troponin I High Sens 453.4 H* D (0-20) pg/ml CBC 07/26/22 Range/Units 10:31 WBC 9.94 (4.8-10.8) K/ul RBC 4.46 L (4.63-6.08) M/uL Hgb 13.4 L (14.0-18.0) g/dl Hct 40.8 (40.1-51.0) % Plt Count 282 (130-400) K/uL Neut # (Auto) 7.15 H (1.4-6.5) K/uL Lymph # (Auto) 1.88 (1.2-3.4) K/uL Griggs # (Auto) 0.67 (0.24-0.82) K/uL Eos # (Auto) 0.14 (0-0.50) K/uL Baso # (Auto) 0.06 (0-0.2) K/uL Comprehensive Metabolic Panel 07/26/22 Range/Units 10:31 Sodium 142 (136-145) mmol/L Potassium 3.8 (3.5-5.1) mmol/L Chloride 108 H (98-107) mmol/L Carbon Dioxide 24 (21-32) mmol/L BUN 19 (6-23) mg/dl Creatinine 1.38 (0.6-1.4) mg/dl Glucose 114 H (70-99(Fasting)) mg/dl Calcium 9.0 (8.5-10.1) mg/dl AST 17 (13-39) U/L ALT 12 (7-52) U/L Alkaline Phosphatase 88 (34-104) U/L Total Protein 7.5 (6.0-8.3) gm/dl Albumin 3.3 L (3.4-5.0) gm/dl Diagnostic Findings EKG performed today 07/26/2022 reviewed independently reveals a sinus rhythm at 93 bpm with first-degree AV block, premature atrial contractions, lateral repolarization changes, unchanged compared to previous.
[2022-07-26] MEDS: INSULIN ASPART PER UNIT SC SCH ×2 (17:30→20:02)
[2022-07-26] MEDS: HEPARIN SOD 5,000 UNIT/0.5 ML VIAL SQ SCH (20:03)
[2022-07-27 04:16] LABS: Basophils # (auto) 0.06 K/uL (0-0.2); Basophils % (auto) 0.7 %; Eosinophils # (auto) 0.22 K/uL (0-0.50); Eosinophils % (auto) 2.6 %; Hematocrit (blood only) 37.6 % (40.1-51.0); Hemoglobin 12.6 g/dl (14.0-18.0); Immature Granulocytes # (auto) 0.02 K/uL (0.00-0.02); Immature Granulocytes % (auto) 0.2 %; Mean Corpuscular Hemoglobin 30.3 pg (25.0-34.0); Mean Corpuscular Hgb Conc 33.5 g/dL (32.0-36.0); Mean Corpuscular Volume 90.4 fL (80.0-100.0); Mean Platelet Volume 10.5 fL (9.4-12.4); Monocytes # (auto) 0.75 K/uL (0.24-0.82); Monocytes % (auto) 8.9 %; Neutrophils # (auto) 5.22 K/uL (1.4-6.5); Neutrophils % (auto) 61.6 %; Platelet Count 247 K/uL (130-400); RDW Coefficient of Variation 14.6 % (11.5-14.5); RDW Standard Deviation 48.4 fL (36.4-46.3); Red Blood Count 4.16 M/uL (4.63-6.08); White Blood Count 8.47 K/ul (4.8-10.8)
[2022-07-27 04:40] LABS: BUN Creatinine Ratio 15.3 (10-20); Calcium 8.5 mg/dl (8.5-10.1); Chol HDL Ratio 2.9 (0-5); Creatinine Clr Calc Pharmacy 32.9 ml/min; Est GFR (African American) 44.6 ml/min; Est GFR (Non-African American) 38.5 ml/min; Potassium 3.9 mmol/L (3.5-5.1)
--- NOTE | 2022-07-27 07:11 | Electrocardiogram Report ---
Test Reason : Blood Pressure : / mmHG Vent. Rate : 096 BPM Atrial Rate : 096 BPM P-R Int : 262 ms QRS Dur : 102 ms QT Int : 354 ms P-R-T Axes : 047 011 161 degrees QTc Int : 447 ms Sinus rhythm with 1st degree A-V block Left ventricular hypertrophy with repolarization abnormality Abnormal ECG When compared with ECG of 26-JUL-2022 10:35, Premature atrial complexes are no longer Present QT has shortened Confirmed by Nicola Cade ([id number]) on 07/27/2022 7:11:14 AM Referred By: REFERRED SELF Confirmed By:Jona Cade
[2022-07-27 08:42] LABS: Estimated Average Glucose 148 mg/dl; Hemoglobin A1C 6.8 % (4.5-5.6)
[2022-07-27] MEDS: INSULIN ASPART PER UNIT SC SCH ×4 (08:42→21:18)
[2022-07-27] MEDS: HEPARIN SOD 5,000 UNIT/0.5 ML VIAL SQ SCH ×2 (08:57→21:17)
[2022-07-27] MEDS: FOLIC ACID 400 MCG TAB PO SCH (08:58)
[2022-07-27] MEDS: ASPIRIN 81 MG ECTAB PO SCH (08:58)
[2022-07-27] MEDS: FINASTERIDE 5 MG TAB PO SCH (08:58)
[2022-07-27] MEDS: ATORVASTATIN 40 MG TAB PO SCH (08:58)
[2022-07-27] MEDS ORDERED: LEVOTHYROXINE SODIUM 50 MCG TABLET PO SCH (09:00)
--- NOTE | 2022-07-27 10:43 | Cardiology Progress Note ---
Date of Service July 27, 2022 Assessment & Plan (1) TIA (transient ischemic attack): (2) Elevated troponin: (3) Aortic stenosis: (4) Carotid arterial disease: Plan: History of severe calcific aortic stenosis, echocardiogram performed a month ago revealed decline in his ejection fraction to 30-35% having been 50-54% in March,. Repeat limited echocardiogram pending at this time. No symptoms suggestive angina and his volume status appears to be stable at present. Elevation in troponin is likely due to demand ischemia in the setting of LV dysfunction and severe . Strokelike symptoms have resolved. MRI without evidence of acute cerebrovascular accident. Continue aspirin and statin therapy. Concerns with regards to his candidacy for clopidogrel from a bleeding standpoint. Previously been referred to the [facility] comprehensive valve clinic for consideration of transcatheter aortic valve implantation, but he did not keep the appointment. Issues with transportation, and unable to make appointments traveling from [place] to [facility] to [place]. His only family member in the area is his sister. Regardless, recent strokelike symptoms place him at high risk for TAVR consideration regardless of logistical concerns. Admission and Anticipated Discharge Date Admission Date: July 26, 2022 Subjective Patient seen examined the bedside. States 'I feel great today'. Telemetry reveals sinus rhythm with first-degree AV block. MRI without evidence of acute cerebrovascular accident. Bedside echocardiogram pending. Denies chest pain or shortness of breath. No edema, orthopnea, or PND. Review of Systems Review of Systems: All systems reviewed & are unremarkable except as noted in Subjective Physical Exam Constitutional: well developed and well nourished; no acute distress Respiratory: normal respiratory effort; no respiratory distress, no labored breathing and no retractions Auscultation: no crackles, no rales, no rhonchi and no wheezes Cardiovascular: Rate/Rhythm: regular rate and regular rhythm Heart Sounds: normal S1, normal S2 and + murmur (2/6 late peaking systolic murmur.) Vessels: no JVD and no carotid bruit Gastrointestinal (Abdomen): Inspection/Auscultation: abdomen normal to inspection and normal bowel sounds; abdomen not distended Percussion/Palpation: abdomen soft; abdomen nontender and no guarding Neurologic: CN's II-XI intact bilaterally and moves all extremities; no focal motor deficits Motor/Sensory: no tremor Psychiatric: A+Ox3, euthymic affect Results & Data ([facility]) Vital Signs (Past 12 Hours) Vital Signs Temp Pulse Pulse Resp BP Pulse Ox O2 Del Method 07/27/22 08:43 36.6 C 96 H 21 130/88 96 Room Air 07/27/22 03:52 36.8 C 102 H 18 120/76 95 Room Air 07/26/22 23:36 98 H
--- NOTE | 2022-07-27 15:07 | Neurology Consultation ---
Date of Consultation July 27, 2022 Assessment & Plan (1) Stroke-like symptoms: Impression: The patient woke up 2 days ago, with cold feeling, body achiness, dizziness, and worsening exertional dyspnea. He did not notice any focal weakness, numbness, or other neurological symptoms. However, his primary care physician noticed facial asymmetry and questionable left lower extremity weakness, and refer patient to emergency department. There is no focal weakness in emergency department. The patient was admitted for further work-up. Stroke work-up including brain MRI did not show acute pathology. The patient has been on daily aspirin and Lipitor. Based on history, physical examination, and imaging study findings, I doubt that the patient's symptoms are related to cerebrovascular accident or transient ischemic attack. Patient has baseline slight facial asymmetry. Plan/impression: The patient should stay on aspirin 81 mg daily and Lipitor as before. Management of hypertension, diabetes mellitus, and hyperlipidemia per primary care physician. The patient is neurologically stable to discharge tomorrow, if he stays stable. Follow-up with outpatient neurology. I will inform [facility] neurology clinic to set up a follow-up appointment. We will sign off. (2) Chronic diastolic heart failure: (3) CKD (chronic kidney disease), stage III: (4) DM2 (diabetes mellitus, type 2): (5) Elevated troponin: Impression: This was considered secondary to demand ischemia. (6) Exertional dyspnea: Impression: The patient has baseline exertional dyspnea, which is stable at this point. (7) HLD (hyperlipidemia): Impression: The patient's LDL level is lower than 70. He will stay on the current dose of Lipitor. (8) HTN (hypertension): (9) Carotid arterial disease: Impression: The patient has history of bilateral carotid artery disease with moderate stenosis. There has been no obvious progression of carotid artery stenosis. Plan/recommendations: Follow-up with carotid ultrasound every 6 to 12 months, or as needed. The patient is not a candidate for vascular intervention at this time. (10) Aortic stenosis: Impression: The patient has severe, aortic valve stenosis. He was found not a candidate for intervention because of multiple chronic medical conditions. Plan Thank you for the consultation. History of Present Illness Reason for Consultation: Stroke-like symptoms Requesting Physician: Denise Santana PA-C Attending Physician: Satish French MD History of Present Illness The patient is a 89-year-old gentleman, with extensive cardiac and vascular history, who was referred to emergency department by his primary care physician yesterday, after they noticed mild left lower extremity weakness and left lower facial droopiness. The patient reports that 2 days ago, he woke up with cold feeling, and whole body achiness. He was feeling somewhat unsteady on his feet, slight dizziness, and worsening exertional dyspnea. He did not notice any focal weakness, numbness, speech disturbance, mental status change, vertiginous symptoms, facial asymmetry, or other focal neurological symptoms. In emergency department, head CT was unremarkable. CT angiography of head and neck showed moderate stenosis of bilateral internal carotid arteries and left vertebral artery but no new progression or hemodynamically significant stenosis or occlusion. The patient has history of transient ischemic attack on aspirin and Lipitor. He has severe aortic stenosis, but not a candidate for surgery because of chronic medical conditions. He has chronic diastolic heart failure, with exertional dyspnea. He can walk up to 40 feet before becoming dyspneic on his baseline. In emergency department, troponin level was elevated. Cardiology was consulted and they considered elevated troponin due to demand ischemia. Echocardiogram was repeated, which showed decreased ejection fraction but no interval change from prior study. They did not notice any obvious focal weakness or other focal neurological deficit in the emergency department. The patient was admitted for stroke work-up. Following brain MRI did not show acute intracranial pathology but chronic, extensive, small vessel disease related subcortical ischemic changes. Today, the patient feels that he is back to his baseline. He walked up to 70 feet, without significant short of breath with physical therapist. He denies having achiness, weakness, cold feeling, dizziness, or other new neurological symptoms. He has baseline unsteady gait, and uses cane during ambulation. His cognitive functioning has been well. He lives alone. I have reviewed the patient's chart including imaging studies and visualized them personally. I have discussed the case with the patient and answer his questions in detail. Allergies Allergy/AdvReac Type Severity Reaction Status Date / Time No Known Allergies Allergy Unknown Verified 06/11/22 22:06 Home Medications Medication Instructions Recorded Confirmed Type atorvastatin 40 mg tablet 40 mg PO QAM 06/11/22 07/26/22 History finasteride 5 mg tablet 5 mg PO DAILY 06/11/22 07/26/22 History folic acid 0.8 mg capsule 0.8 mg PO DAILY 06/11/22 07/26/22 History furosemide 20 mg tablet 20 mg PO MOWEFR 06/11/22 07/26/22 History glipizide 2.5 mg tablet, extended 2.5 mg PO QAM 06/11/22 07/26/22 History release 24 hr levothyroxine 50 mcg tablet 50 mcg PO QAM 06/11/22 07/26/22 History metformin 500 mg tablet 500 mg PO BIDM 06/11/22 07/26/22 History potassium chloride 10 mEq 10 meq PO MOWEFR 06/11/22 07/26/22 History tablet,extended release(part/cryst) aspirin 81 mg tablet,delayed 81 mg PO QAM 30 days #30 tabs 06/14/22 07/26/22 Rx release Patient History Medical History Carotid arterial disease Chronic diastolic heart failure CKD (chronic kidney disease), stage III DM2 (diabetes mellitus, type 2) HLD (hyperlipidemia) HTN (hypertension) Hypothyroidism Moderate calcific aortic stenosis TIA (transient ischemic attack) Surgical History History of cataract surgery S/P laparoscopic cholecystectomy Family History Other Cancer Parkinson disease Social History Smoking Status: Never smoker Hx Alcohol Use: No Hx Substance Use: No Preferred Language: [place] Communication Ability: Effective Wheat [employer]er Required: Yes Beliefs That Will Affect Care: None marital status: / Current Living Situation: Alone Current Living Situation Comment: apartment How many Children do You have: 1 Feels Safe at Home: Yes Safety Concerns: Feels Safe At This Time Assistive Devices: Cane and Walker Review of Systems Review of Systems: All systems reviewed & are unremarkable except as noted in HPI & below Physical Exam Physical Exam: General Examination: Constitutional: Well developed person in no acute distress. HEENT: Normal exam with inspection. CV: Hearth rhythm is regular. Neck: Supple, no carotid bruits. Lungs: Non-labored and comfortable breathing. Exertional dyspnea is noticed. Abdomen: Soft, non-tender, non-distended. Skin: No rash or ecchymosis. Extremities: No edema or cyanosis NEUROLOGICAL EXAMINATION: Mental Status: Alert and oriented to place, person and time. Cranial Nerves: II-XII are intact. No nystagmus. Funduscopy: Normal looking optic discs. Motor: 5/5 in all extremities without asymmetry except bilateral hip flexors are 4+/5 Tone: Normal without spasticity or rigidity. Sensory: Intact to all sensory modalities except decreased sensation in feet symmetrically DTRs: 1+ in upper extremities, trace in knees and absent in ankles. No babinski. Coordination: No dysmetria with FTN testing. Speech: Fluent. Comprehension is intact. Gait: He can walk independently with cane. Wide-based walking pattern is noticed. Musculoskeletal: Normal muscle bulk, no atrophy. Results & Data ([facility]) Vital Signs (Past 12 Hours) Vital Signs Temp Pulse Resp BP Pulse Ox O2 Del Method 07/27/22 12:36 36.6 C 100 H 19 117/79 96 Room Air 07/27/22 08:43 36.6 C 96 H 21 130/88 96 Room Air 07/27/22 03:52 36.8 C 102 H 18 120/76 95 Room Air Laboratory Results Laboratory Results - last 24 hr 07/26/22 07/26/22 07/26/22 15:56 16:55 20:00 WBC RBC Hgb Hct MCV MCH MCHC RDW Std Deviation RDW Coeff of Remberto Plt Count MPV Immature Gran % (Auto) Neut % (Auto) Lymph % (Auto) [place] % (Auto) Eos % (Auto) Baso % (Auto) Neut # (Auto) Lymph # (Auto) [place] # (Auto) Eos # (Auto) Baso # (Auto) Immature Gran # (Auto) Sodium Potassium Chloride Carbon Dioxide Anion Gap BUN Creatinine Est Cr Clr Drug Dosing Est GFR ( Amer) Est GFR (Non-Af Amer) BUN/Creatinine Ratio Glucose POC Glucose 86 118 H Estimat Average Glucose Hemoglobin A1c Calcium Troponin I High Sens 368.5 H* Triglycerides Cholesterol LDL Cholesterol, Calc VLDL Cholesterol, Calc HDL Cholesterol Cholesterol/HDL Ratio 07/26/22 07/27/22 07/27/22 22:30 03:52 03:52 WBC 8.47 RBC 4.16 L Hgb 12.6 L Hct 37.6 L MCV 90.4 MCH 30.3 MCHC 33.5 RDW Std Deviation 48.4 H RDW Coeff of Remberto 14.6 H Plt Count 247 MPV 10.5 Immature Gran % (Auto) 0.2 Neut % (Auto) 61.6 Lymph % (Auto) 26.0 [place] % (Auto) 8.9 Eos % (Auto) 2.6 Baso % (Auto) 0.7 Neut # (Auto) 5.22 Lymph # (Auto) 2.20 [place] # (Auto) 0.75 Eos # (Auto) 0.22 Baso # (Auto) 0.06 Immature Gran # (Auto) 0.02 Sodium Potassium Chloride Carbon Dioxide Anion Gap BUN Creatinine Est Cr Clr Drug Dosing Est GFR ( Amer) Est GFR (Non-Af Amer) BUN/Creatinine Ratio Glucose POC Glucose Estimat Average Glucose Hemoglobin A1c Calcium Troponin I High Sens 392.9 H* 343.9 H* Triglycerides Cholesterol LDL Cholesterol, Calc VLDL Cholesterol, Calc HDL Cholesterol Cholesterol/HDL Ratio 07/27/22 07/27/22 07/27/22 03:52 03:52 08:07 WBC RBC Hgb Hct MCV MCH MCHC RDW Std Deviation RDW Coeff of Remberto Plt Count MPV Immature Gran % (Auto) Neut % (Auto) Lymph % (Auto) [place] % (Auto) Eos % (Auto) Baso % (Auto) Neut # (Auto) Lymph # (Auto) [place] # (Auto) Eos # (Auto) Baso # (Auto) Immature Gran # (Auto) Sodium 140 Potassium 3.9 Chloride 108 H Carbon Dioxide 23 Anion Gap 9 BUN 24 H Creatinine 1.57 H Est Cr Clr Drug Dosing 32.9 Est GFR ( Amer) 44.6 Est GFR (Non-Af Amer) 38.5 BUN/Creatinine Ratio 15.3 Glucose 99 POC Glucose 98 Estimat Average Glucose 148 Hemoglobin A1c 6.8 H Calcium 8.5 Troponin I High Sens Triglycerides 83 Cholesterol 109 LDL Cholesterol, Calc 54 VLDL Cholesterol, Calc 17 HDL Cholesterol 38 Cholesterol/HDL Ratio 2.9 07/27/22 11:49 WBC RBC Hgb Hct MCV MCH MCHC RDW Std Deviation RDW Coeff of Remberto Plt Count MPV Immature Gran % (Auto) Neut % (Auto) Lymph % (Auto) [place] % (Auto) Eos % (Auto) Baso % (Auto) Neut # (Auto) Lymph # (Auto) [place] # (Auto) Eos # (Auto) Baso # (Auto) Immature Gran # (Auto) Sodium Potassium Chloride Carbon Dioxide Anion Gap BUN Creatinine Est Cr Clr Drug Dosing Est GFR ( Amer) Est GFR (Non-Af Amer) BUN/Creatinine Ratio Glucose POC Glucose 151 H Estimat Average Glucose Hemoglobin A1c Calcium Troponin I High Sens Triglycerides Cholesterol LDL Cholesterol, Calc VLDL Cholesterol, Calc HDL Cholesterol Cholesterol/HDL Ratio Diagnostic Findings Head CT 07/26/22 10:[address] DOSE: 477.89 mGycm HISTORY: weakness TECHNIQUE: Multiaxial CT images of the head were performed without the use of intravenous contrast. Automated exposure control was utilized for this study. A dose lowering technique was utilized adhering to the principles of ALARA. Comparison: Head CT 06/11/2022. Findings: Small fluid level within the left sphenoid sinus. The mastoid air cells appear clear. The calvarium and skull base are intact. There is no mass, hematoma, midline shift, acute infarct. White matter hypodensity is nonspecific but suggestive of microvascular ischemic change. The ventricles and sulci demonstrate mild age-related involutional changes. 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 Impression: No significant change compared to the prior study. No acute intracranial abnormality. ACT 112: Negative or not required by law. Electronically signed by: Hernesto Allen M.D. 07/26/2022 11:40 AM Chest X-Ray 07/26/22 10:48 XR chest 1V portable HISTORY: weakness COMPARISON: Chest 06/11/2022. FINDINGS: No pneumothorax. The heart remains mildly enlarged. There are trace bilateral pleural effusions. There is mild central pulmonary vascular congestion without overt edema. Chronic interstitial thickening remains unchanged. Left basilar linear densities are noted. This favors subsegmental atelectasis. IMPRESSION: No significant change in the cardiomegaly with mild central pulmonary vascular congestion. ACT 112: Negative or not required by law. Electronically signed by: Hernesto Allen M.D. 07/26/2022 11:11 AM Brain MRI 07/26/22 13:09 MR brain wo con CLINICAL HISTORY: stroke like symptoms TECHNIQUE: Multiplanar and multisequence MR images of the brain were obtained without intravenous contrast. Comparison: Comparison is made to MRI brain 06/21/2022 FINDINGS: No abnormal restricted diffusion is identified. Extensive white matter T2 hyperintensities are seen, similar in extent to prior exam. The ventricular system is normal in appearance. No mass is seen. There is no mass effect or midline shift. There is no evidence of acute intraparenchymal hemorrhage. No extra axial fluid collections are seen. The corpus callosum, pituitary gland, and cerebellar tonsils appear grossly unremarkable. Flow voids of the major intracranial arterial vessels are identified. The imaged portions of the paranasal sinuses, mastoid air cells, and orbits are unremarkable. IMPRESSION: 1. No acute abnormality and in particular no evidence of acute infarct. 2. Redemonstration of extensive T2 white matter hyperintensity compatible with chronic microvascular disease. ACT 112: Negative or not required by law. Electronically signed by: Estrada Andujar M.D. 07/26/2022 3:01 PM
--- NOTE | 2022-07-27 17:34 | Hospitalist Progress Note ---
Date of Service July 27, 2022 Assessment & Plan (1) Stroke-like symptoms: Plan: Patient is 89 y/o M with TIA, PMH HTN, HLD, DM II, aortic stenosis, carotid artery disease, chronic diastolic heart failure, CKD III, hypothyroidism, BPH presented to ER with c/o 2 days ago awoke with lightheadedness, leg weakness, feeling cold. Today PCP office difficulty getting up out of chair and thought to have left sided weakness and facial droop Symptoms possible related to TIA CT head showed no acute intracranial abnormality. MRI head showed no acute abnormality and in particular no evidence of acute infarct. Echo showed left ventricular systolic function is moderate to severely dilated 06/11/22: CTA neck: 75% stenosis distal right common carotid artery, 60-70% stenosis proximal right internal carotid artery, 50% stenosis distal left common carotid artery, 50% stenosis proximal left internal carotid artery Neuro on board recommend to continue aspirin and statin Continue PT/OT eval (2) Elevated troponin: Plan: High sensitivity Troponin: 453, then trending down to 343 Likely due to demand ischemia in the setting of LV dysfunction and severe . ECHO showed left ventricular systolic function is moderate to severely dilated with EF 30 to 35% Denies any chest pain Cardiology on board Continue statin and aspirin (3) Carotid arterial disease: Plan: Known carotid artery disease. Previously asymptomatic Right internal carotid artery stenosis 60-70%. Left internal carotid artery stenosis 50% Was recommended to have repeat carotid ultrasound in 6 months, with no acute intervention recommended by vascular surgery previously in 06/2022 Continue aspirin and statin (4) DM2 (diabetes mellitus, type 2): Plan: Most recent HbA1c: 6.8 in 07/27 Continue to hold metformin, glipizide Novolog sliding scale per protocol Continue monitor BS (5) Aortic stenosis: Plan: Echo showed severe calcific aortic valve stenosis (6) Chronic diastolic heart failure: Plan: History diastolic, systolic heart failure Appears euvolemic EF: 30-35% on echo in 06/27. Prior EF: 50-54% on echo in 03/27 Continue lasix on fri, wed, frid schedule (7) HTN (hypertension): Plan: Continue furosemide on Friday, Friday, Friday stable (8) HLD (hyperlipidemia): Plan: Continue atorvastatin (9) CKD (chronic kidney disease), stage III: Plan: Cr: 1.5 today . Baseline 1.1-1.3 Avoid nephrotoxic agents when possible Continue monitor BMP (10) Hypothyroidism: Plan: TSH 8.6 Currently on levothyroxine 50mcg, will increase it Check TSH in 4 to 6 weeks DVT Prophylaxis Heparin SQ CODE status DNR/DNI Admission and Anticipated Discharge Date Admission Date: July 26, 2022 Subjective Pt was seen and examined for up of stroke like symptoms Lying in bed with no acute distress watching TV Pt said that he feels fine He said that he had therapy today and he did good Denies any chest pain, palpitation, dizziness and SOB Review of Systems Review of Systems: All systems reviewed & are unremarkable except as noted in Subjective Physical Exam Physical Exam: General- No acute distress Head- atraumatic Eyes- PERRL, EOMI, ENT- oropharynx clear Neck- supple, no JVD Lungs- clear to auscultation Heart- regular rhythm; +murmur Abdomen- normal bowel sounds, soft, nontender Extremities- no calf tenderness Neuro- alert, oriented x 3; PERRL, EOMI; no facial palsy; no dysarthria Skin- warm & dry Results & Data Results & Data ([facility]) Vital Signs (Past 12 Hours) Vital Signs Temp Pulse Resp BP Pulse Ox O2 Del Method 07/27/22 16:35 36.4 C L 105 H 18 119/78 96 Room Air 07/27/22 12:36 36.6 C 100 H 19 117/79 96 Room Air 07/27/22 08:43 36.6 C 96 H 21 130/88 96 Room Air
[2022-07-28 05:24] LABS: Basophils # (auto) 0.07 K/uL (0-0.2); Basophils % (auto) 0.8 %; Eosinophils # (auto) 0.21 K/uL (0-0.50); Eosinophils % (auto) 2.4 %; Hematocrit (blood only) 36.8 % (40.1-51.0); Hemoglobin 12.3 g/dl (14.0-18.0); Immature Granulocytes # (auto) 0.03 K/uL (0.00-0.02); Immature Granulocytes % (auto) 0.3 %; Lymphocytes # (auto) 2.23 K/uL (1.2-3.4); Mean Corpuscular Hemoglobin 30.1 pg (25.0-34.0); Mean Corpuscular Hgb Conc 33.4 g/dL (32.0-36.0); Mean Platelet Volume 10.7 fL (9.4-12.4); Monocytes # (auto) 0.64 K/uL (0.24-0.82); Monocytes % (auto) 7.5 %; Neutrophils # (auto) 5.41 K/uL (1.4-6.5); Platelet Count 231 K/uL (130-400); RDW Coefficient of Variation 14.5 % (11.5-14.5); RDW Standard Deviation 47.4 fL (36.4-46.3); Red Blood Count 4.09 M/uL (4.63-6.08); White Blood Count 8.59 K/ul (4.8-10.8)
[2022-07-28] MEDS: LEVOTHYROXINE SODIUM 50 MCG TABLET PO SCH (05:44)
[2022-07-28 05:49] LABS: BUN Creatinine Ratio 18.7 (10-20); Calcium 8.8 mg/dl (8.5-10.1); Creatinine Clr Calc Pharmacy 34.5 ml/min; Est GFR (African American) 47.2 ml/min; Est GFR (Non-African American) 40.7 ml/min; Potassium 3.8 mmol/L (3.5-5.1)
[2022-07-28] MEDS ORDERED: IPRATROPIUM BROMIDE NEB SOLN 0.02% 2.5 ML VIAL INH STA (06:40)
[2022-07-28] MEDS ORDERED: LEVALBUTEROL 1.25MG/0.5ML NEB INH STA (06:40)
[2022-07-28] MEDS ORDERED: XOPENEX/ATROVENT 1.25mg/0.5MG NEB COMBO NEB STA (06:40)
[2022-07-28] MEDS: INSULIN ASPART PER UNIT SC SCH ×4 (08:34→20:57)
[2022-07-28] MEDS: FINASTERIDE 5 MG TAB PO SCH (08:36)
[2022-07-28] MEDS: FOLIC ACID 400 MCG TAB PO SCH (08:36)
[2022-07-28] MEDS: ATORVASTATIN 40 MG TAB PO SCH (08:36)
[2022-07-28] MEDS: ASPIRIN 81 MG ECTAB PO SCH (08:36)
[2022-07-28] MEDS: HEPARIN SOD 5,000 UNIT/0.5 ML VIAL SQ SCH ×2 (08:38→20:05)
--- NOTE | 2022-07-28 09:18 | XRay Report ---
XR chest 1V portable CLINICAL HISTORY: sob TECHNIQUE: Single frontal radiograph of the chest was obtained. Comparison: Comparison is made to chest radiograph 04/25/2022 FINDINGS: No lines and tubes are seen. Cardiomegaly is noted. Interval worsening of pulmonary edema. There is i nterval development of bilateral lower lung predominant airspace opacities. There is a trace left ple ural effusion. IMPRESSION: 1. Interval worsening of pulmonary edema. 2. Lower lobe predominant airspace opacities may represent alveolar edema, atelectasis, pneumonia, a nd/or aspiration. 3. Trace left pleural effusion. ACT 112: Negative or not required by law. Electronically signed by: Estrada Andujar M.D. 07/28/2022 9:16 AM
--- NOTE | 2022-07-28 10:24 | Cardiology Progress Note ---
Date of Service July 28, 2022 Assessment & Plan (1) TIA (transient ischemic attack): (2) Elevated troponin: (3) Aortic stenosis: (4) Carotid arterial disease: Plan: History of severe calcific aortic stenosis, echocardiogram performed a month ago revealed decline in his ejection fraction to 30-35% having been 50-54% in March,. Findings confirmed per limited repeat echocardiogram performed during this admission. There is no evidence of LV thrombus. No symptoms suggestive angina and his volume status appears to be stable at present. Elevation in troponin is likely due to demand ischemia in the setting of LV dysfunction and severe . Strokelike symptoms have resolved. MRI without evidence of acute cerebrovascular accident. Continue aspirin and statin therapy. Concerns with regards to his candidacy for clopidogrel from a bleeding standpoint. Appreciate neurology input. Previously been referred to the [facility] comprehensive valve clinic for consideration of transcatheter aortic valve implantation, but he did not keep the appointment. Issues with transportation, and unable to make appointments traveling from [place] to [facility] to [place]. His only family member in the area is his sister. Regardless, recent strokelike symptoms place him at high risk for TAVR consideration regardless of logistical concerns. Possible discharge in 24 to 48 hours. Admission and Anticipated Discharge Date Admission Date: July 26, 2022 Subjective 89-year-old patient seen examined at the bedside. Reports feeling short of breath this morning. Symptoms have resolved. Consumed his a.m. meal although notes some fatigue. Does not feel quite ready for discharge today. Denies chest pain or palpitations. Telemetry reveals sinus rhythm in the 90s. Review of Systems Review of Systems: All systems reviewed & are unremarkable except as noted in Subjective Physical Exam Constitutional: well developed and well nourished; no acute distress Respiratory: normal respiratory effort; no respiratory distress, no labored breathing and no retractions Auscultation: no crackles, no rales, no rhonchi and no wheezes Cardiovascular: Rate/Rhythm: regular rate and regular rhythm Heart Sounds: normal S1, normal S2 and + murmur (2/6 late peaking systolic murmur.) Vessels: no JVD and no carotid bruit Gastrointestinal (Abdomen): Inspection/Auscultation: abdomen normal to inspection and normal bowel sounds; abdomen not distended Percussion/Palpation: abdomen soft; abdomen nontender and no guarding Neurologic: CN's II-XI intact bilaterally and moves all extremities; no focal motor deficits Motor/Sensory: no tremor Psychiatric: A+Ox3, euthymic affect Results & Data ([facility]) Vital Signs (Past 12 Hours) Vital Signs Temp Pulse Pulse Resp BP BP Pulse Ox 07/28/22 07:58 91 H 07/28/22 07:11 36.5 C 91 H 20 114/80 95 07/28/22 06:58 74 16 99 07/28/22 06:31 36.4 C L 99 H 20 112/77 94 07/28/22 03:40 36.4 C L 100 H 19 104/68 97 07/27/22 23:00 67 07/27/22 22:32 36.6 C 19 L 22 113/72 95 O2 Del Method O2 Flow Rate 07/28/22 07:58 07/28/22 07:11 Room Air 07/28/22 06:58 Nasal Cannula 2 07/28/22 06:31 Room Air 07/28/22 03:40 Room Air 07/27/22 23:00 07/27/22 22:32 Room Air
[2022-07-28] MEDS ORDERED: FUROSEMIDE INJ 20 MG/2 ML VIAL IV ONE (12:19)
--- NOTE | 2022-07-28 23:52 | Hospitalist Progress Note ---
Date of Service July 28, 2022 Assessment & Plan (1) Stroke-like symptoms: Plan: Patient is 89 y/o M with TIA, PMH HTN, HLD, DM II, aortic stenosis, carotid artery disease, chronic diastolic heart failure, CKD III, hypothyroidism, BPH presented to ER with c/o 2 days ago awoke with lightheadedness, leg weakness, feeling cold. Today PCP office difficulty getting up out of chair and thought to have left sided weakness and facial droop Symptoms possible related to TIA CT head showed no acute intracranial abnormality. MRI head showed no acute abnormality and in particular no evidence of acute infarct. Echo showed left ventricular systolic function is moderate to severely dilated 06/11/22: CTA neck: 75% stenosis distal right common carotid artery, 60-70% stenosis proximal right internal carotid artery, 50% stenosis distal left common carotid artery, 50% stenosis proximal left internal carotid artery Neuro on board recommend to continue aspirin and statin Continue PT/OT eval (2) Elevated troponin: Plan: High sensitivity Troponin: 453, then trending down to 343 Likely due to demand ischemia in the setting of LV dysfunction and severe . ECHO showed left ventricular systolic function is moderate to severely dilated with EF 30 to 35% Denies any chest pain Cardiology on board Continue statin and aspirin (3) Carotid arterial disease: Plan: Known carotid artery disease. Previously asymptomatic Right internal carotid artery stenosis 60-70%. Left internal carotid artery stenosis 50% Was recommended to have repeat carotid ultrasound in 6 months, with no acute intervention recommended by vascular surgery previously in 06/2022 Continue aspirin and statin (4) DM2 (diabetes mellitus, type 2): Plan: Most recent HbA1c: 6.8 in 07/27 Continue to hold metformin, glipizide Novolog sliding scale per protocol Continue monitor BS (5) Aortic stenosis: Plan: Echo showed severe calcific aortic valve stenosis (6) Chronic diastolic heart failure: Plan: CXR showed interval worsening of pulmonary edema. ECHO showed left ventricular systolic function is moderate to severely dilated with EF 30 to 35% Continue lasix on fri, fri, schedule Lasix 10mg IV x1 given today (7) HTN (hypertension): Plan: Continue furosemide on Friday, Friday, Friday stable (8) HLD (hyperlipidemia): Plan: Continue atorvastatin (9) CKD (chronic kidney disease), stage III: Plan: Cr: 1.5 today . Baseline 1.1-1.3 Avoid nephrotoxic agents when possible Continue monitor BMP (10) Hypothyroidism: Plan: TSH 8.6 Currently on levothyroxine 50mcg, will increase it Check TSH in 4 to 6 weeks DVT Prophylaxis Heparin SQ CODE status DNR/DNI Admission and Anticipated Discharge Date Admission Date: July 26, 2022 Subjective Pt was seen and examined for up of stroke like symptoms Lying in bed with no acute distress watching TV Pt said that he feels fine, but last night he was having difficulty time to breath Denies any chest pain, palpitation, dizziness and SOB Review of Systems Review of Systems: All systems reviewed & are unremarkable except as noted in Subjective Physical Exam Physical Exam: General- No acute distress Head- atraumatic Eyes- PERRL, EOMI, ENT- oropharynx clear Neck- supple, no JVD Lungs- clear to auscultation Heart- regular rhythm; +murmur Abdomen- normal bowel sounds, soft, nontender Extremities- no calf tenderness Neuro- alert, oriented x 3; PERRL, EOMI; no facial palsy; no dysarthria Skin- warm & dry Results & Data Results & Data ([facility]) Vital Signs (Past 12 Hours) Vital Signs Temp Pulse Pulse Resp BP BP Pulse Ox 07/28/22 23:23 36.5 C 108 H 119/78 96 07/28/22 19:44 36.7 C 100 H 18 114/75 96 07/28/22 15:34 36.4 C L 98 H 17 102/48 L 94 07/28/22 15:19 98 H 07/28/22 12:19 36.6 C 98 H 17 118/72 95 O2 Del Method O2 Flow Rate 07/28/22 23:23 Room Air 07/28/22 19:44 Room Air 07/28/22 15:34 Room Air 07/28/22 15:19 07/28/22 12:19 Nasal Cannula 2.0
[2022-07-29] MEDS: LEVOTHYROXINE SODIUM 50 MCG TABLET PO SCH (05:44)
[2022-07-29] MEDS ORDERED: POTASSIUM CHLORIDE 10 MEQ TABCR PO SCH (08:00)
[2022-07-29] MEDS: INSULIN ASPART PER UNIT SC SCH ×4 (08:39→20:44)
[2022-07-29] MEDS: FINASTERIDE 5 MG TAB PO SCH (08:41)
[2022-07-29] MEDS: ASPIRIN 81 MG ECTAB PO SCH (08:41)
[2022-07-29] MEDS: FOLIC ACID 400 MCG TAB PO SCH (08:41)
[2022-07-29] MEDS: ATORVASTATIN 40 MG TAB PO SCH (08:41)
[2022-07-29] MEDS: HEPARIN SOD 5,000 UNIT/0.5 ML VIAL SQ SCH ×2 (08:42→20:38)
[2022-07-29 08:57] LABS: Hematocrit (blood only) 37.5 % (40.1-51.0); Hemoglobin 12.7 g/dl (14.0-18.0); Mean Corpuscular Hemoglobin 30.2 pg (25.0-34.0); Mean Corpuscular Hgb Conc 33.9 g/dL (32.0-36.0); Mean Corpuscular Volume 89.3 fL (80.0-100.0); Mean Platelet Volume 11.4 fL (9.4-12.4); Platelet Count 237 K/uL (130-400); RDW Coefficient of Variation 14.6 % (11.5-14.5); RDW Standard Deviation 47.3 fL (36.4-46.3); White Blood Count 8.82 K/ul (4.8-10.8)
[2022-07-29] MEDS ORDERED: FUROSEMIDE 20 MG TAB PO SCH (09:00)
[2022-07-29 09:59] LABS: BUN Creatinine Ratio 19.3 (10-20); Calcium 9.1 mg/dl (8.5-10.1); Creatinine Clr Calc Pharmacy 35.7 ml/min; Est GFR (African American) 49.1 ml/min; Est GFR (Non-African American) 42.4 ml/min; Potassium 3.8 mmol/L (3.5-5.1)
--- NOTE | 2022-07-29 11:13 | Cardiology Progress Note ---
Date of Service July 29, 2022 Assessment & Plan (1) TIA (transient ischemic attack): (2) Elevated troponin: (3) Aortic stenosis: (4) Carotid arterial disease: Plan: History of severe calcific aortic stenosis, echocardiogram performed a month ago revealed decline in his ejection fraction to 30-35% having been 50-54% in March,. Findings confirmed per limited repeat echocardiogram performed during this admission. There is no evidence of LV thrombus. No symptoms suggestive angina and his volume status appears to be stable at present. Elevation in troponin is likely due to demand ischemia in the setting of LV dysfunction and severe . Stroke-like symptoms have resolved. MRI without evidence of acute cerebrovascular accident. Continue aspirin and statin therapy. Concerns with regards to his candidacy for clopidogrel from a bleeding standpoint. Appreciate neurology input. Previously been referred to the [facility] comprehensive valve clinic for consideration of transcatheter aortic valve implantation, but he did not keep the appointment. Issues with transportation, and unable to make appointments traveling from [place] to [facility] [place] to [place]. His only family member in the area is his sister. Regardless, recent strokelike symptoms place him at high risk for TAVR consideration regardless of logistical concerns. Possible discharge in 24 to 48 hours. Admission and Anticipated Discharge Date Admission Date: July 26, 2022 Subjective Patient seen examined the bedside. Reports episode of transient shortness of breath again this AM. No chest pain or lightheadedness. Denies orthopnea or PND. No focal weakness, slurred speech, or paresthesias. Telemetry reveals sinus rhythm heart rate ranging 90-100 bpm. Review of Systems Review of Systems: All systems reviewed & are unremarkable except as noted in Subjective Physical Exam Constitutional: well developed and well nourished; no acute distress Respiratory: normal respiratory effort; no respiratory distress, no labored breathing and no retractions Auscultation: no crackles, no rales, no rhonchi and no wheezes Cardiovascular: Rate/Rhythm: regular rate and regular rhythm Heart Sounds: normal S1, normal S2 and + murmur (2/6 late peaking systolic murmur.) Vessels: no JVD and no carotid bruit Gastrointestinal (Abdomen): Inspection/Auscultation: abdomen normal to inspection and normal bowel sounds; abdomen not distended Percussion/Palpation: abdomen soft; abdomen nontender and no guarding Neurologic: CN's II-XI intact bilaterally and moves all extremities; no focal motor deficits Motor/Sensory: no tremor Psychiatric: A+Ox3, euthymic affect Results & Data ([facility]) Vital Signs (Past 12 Hours) Vital Signs Temp Pulse Pulse Resp BP BP Pulse Ox 07/29/22 09:37 36.7 C 95 H 20 106/64 97 07/29/22 09:22 07/29/22 08:35 98 H 07/29/22 07:17 36.4 C L 103 H 23 124/78 95 07/29/22 03:27 36.2 C L 100 H 18 131/93 95 07/28/22 23:23 36.5 C 108 H 119/78 96 O2 Del Method 07/29/22 09:37 Room Air 07/29/22 09:22 Room Air 07/29/22 08:35 07/29/22 07:17 Room Air 07/29/22 03:27 Room Air 07/28/22 23:23 Room Air
--- NOTE | 2022-07-29 11:15 | XRay Report ---
XR chest 1V portable HISTORY: 89 years-old Male f/u acute shortness of breath COMPARISON: 07/28/2022, 07/26/2022 TECHNIQUE: AP view of the chest FINDINGS: Cardiac silhouette is enlarged. Atherosclerosis of the aorta. No pneumothorax. Trace pleural effusion s with persistent bibasilar opacities. Pulmonary vascular congestion with mildly decreased interstiti al coarsening. Degenerative changes of the shoulders and spine. IMPRESSION: 1. Cardiomegaly with mildly improved pulmonary edema. 2. Trace pleural effusions with mild persistent bibasilar opacities. ACT 112: Negative or not required by law. The above report was generated using voice recognition software. It may contain grammatical, syntax o r spelling errors. Electronically signed by: Roque Brink M.D. 07/29/2022 11:13 AM
--- NOTE | 2022-07-29 16:55 | Hospitalist Progress Note ---
Date of Service July 29, 2022 Assessment & Plan (1) Stroke-like symptoms: Plan: Patient is 89 y/o M with TIA, PMH HTN, HLD, DM II, aortic stenosis, carotid artery disease, chronic diastolic heart failure, CKD III, hypothyroidism, BPH presented to ER with c/o 2 days ago awoke with lightheadedness, leg weakness, feeling cold. Today PCP office difficulty getting up out of chair and thought to have left sided weakness and facial droop Symptoms possible related to TIA CT head showed no acute intracranial abnormality. MRI head showed no acute abnormality and in particular no evidence of acute infarct. Echo showed left ventricular systolic function is moderate to severely dilated 06/11/22: CTA neck: 75% stenosis distal right common carotid artery, 60-70% stenosis proximal right internal carotid artery, 50% stenosis distal left common carotid artery, 50% stenosis proximal left internal carotid artery Neuro on board recommended to continue aspirin and statin Continue PT/OT eval (2) Elevated troponin: Plan: High sensitivity Troponin: 453, then trending down to 343 Likely due to demand ischemia in the setting of LV dysfunction and severe . ECHO showed left ventricular systolic function is moderate to severely dilated with EF 30 to 35% Denies any chest pain Cardiology on board Continue statin and aspirin (3) Carotid arterial disease: Plan: Known carotid artery disease. Previously asymptomatic Right internal carotid artery stenosis 60-70%. Left internal carotid artery stenosis 50% Was recommended to have repeat carotid ultrasound in 6 months, with no acute intervention recommended by vascular surgery previously in 06/2022 Continue aspirin and statin (4) DM2 (diabetes mellitus, type 2): Plan: Most recent HbA1c: 6.8 in 07/27 Continue to hold metformin, glipizide Novolog sliding scale per protocol Continue monitor BS (5) Aortic stenosis: Plan: Echo showed severe calcific aortic valve stenosis (6) Chronic diastolic heart failure: Plan: CXR showed cardiomegaly with mildly improved pulmonary edema. ECHO showed left ventricular systolic function is moderate to severely dilated with EF 30 to 35% Continue lasix on fri, wed, frid schedule Clinically improves (7) HTN (hypertension): Plan: Continue furosemide on Friday, Friday, Friday stable (8) HLD (hyperlipidemia): Plan: Continue atorvastatin (9) CKD (chronic kidney disease), stage III: Plan: Cr: 1.4 today . Baseline 1.1-1.3 Avoid nephrotoxic agents when possible Continue monitor BMP (10) Hypothyroidism: Plan: TSH 8.6 Currently on levothyroxine 50mcg, will increase it Check TSH in 4 to 6 weeks DVT Prophylaxis Heparin SQ CODE status DNR/DNI Admission and Anticipated Discharge Date Admission Date: July 26, 2022 Subjective Pt was seen and examined for up of stroke like symptoms Lying in bed with no acute distress watching TV This morning pt said hat he is breathing was not good, but now he said that he fees fine Denies any chest pain, palpitation, dizziness and SOB Review of Systems Review of Systems: All systems reviewed & are unremarkable except as noted in Subjective Physical Exam Physical Exam: General- No acute distress Head- atraumatic Eyes- PERRL, EOMI, ENT- oropharynx clear Neck- supple, no JVD Lungs- clear to auscultation Heart- regular rhythm; +murmur Abdomen- normal bowel sounds, soft, nontender Extremities- no calf tenderness Neuro- alert, oriented x 3; PERRL, EOMI; no facial palsy; no dysarthria Skin- warm & dry Results & Data Results & Data ([facility]) Vital Signs (Past 12 Hours) Vital Signs Temp Pulse Pulse Resp BP BP Pulse Ox 07/29/22 15:19 36.4 C L 105 H 22 111/74 97 07/29/22 15:05 104 H 07/29/22 12:28 36.3 C L 92 H 19 118/67 97 07/29/22 11:31 99 07/29/22 09:37 36.7 C 95 H 20 106/64 97 07/29/22 09:22 07/29/22 08:35 98 H 07/29/22 07:17 36.4 C L 103 H 23 124/78 95 O2 Del Method 07/29/22 15:19 Room Air 07/29/22 15:05 07/29/22 12:28 Room Air 07/29/22 11:31 07/29/22 09:37 Room Air 07/29/22 09:22 Room Air 07/29/22 08:35 07/29/22 07:17 Room Air
[2022-07-30] MEDS: LEVOTHYROXINE SODIUM 50 MCG TABLET PO SCH (06:48)
[2022-07-30] MEDS: ATORVASTATIN 40 MG TAB PO SCH (08:22)
[2022-07-30] MEDS: FINASTERIDE 5 MG TAB PO SCH (08:22)
[2022-07-30] MEDS: ASPIRIN 81 MG ECTAB PO SCH (08:22)
[2022-07-30] MEDS: FOLIC ACID 400 MCG TAB PO SCH (08:22)
[2022-07-30] MEDS: HEPARIN SOD 5,000 UNIT/0.5 ML VIAL SQ SCH (08:22)
[2022-07-30] MEDS: INSULIN ASPART PER UNIT SC SCH ×2 (08:23→12:30)
--- NOTE | 2022-07-30 13:57 | Discharge Summary ---
Date of Service July 30, 2022 Admission HPI Per Admitting Provider Patient is 89 y/o M with PMH TIA, HTN, HLD, DM II, aortic stenosis, carotid artery disease, chronic diastolic heart failure, CKD III, hypothyroidism, BPH presented to ER with c/o weakness. Patient reports 2 days ago he woke up and felt cold, lightheaded and felt like his legs were giving out on him. Denies any noted upper extremity weakness. Denies a fall. His home health nurse saw him that day and recommended ER evaluation however patient chose to see PCP. Saw PCP today and while in waiting room he was unable to get up off the chair and needed assistance which is unusual for him. PCP also felt patient had left sided weakness and facial droop and patient was referred to ER. 06/11/22-06/14/22 for fall and was discharged on aspirin 81mg for carotid stenosis and atenolol was discontinued secondary to lower BP's. Denies fever/chills, diaphoresis, N/V/D/C, LINDSAY, syncope, vision changes, neck pain, CP, SOB, orthopnea, palpitations, cough, sore throat, choking, otalgia, rhinorrhea, abdominal pain, paresthesias, ext remity edema, rashes, urinary symptoms. Admission Exam Per Admitting Provider General: no distress, WDWN Head: normocephalic, atraumatic Eyes: PERRL, EOM's intact, conjunctiva non-injected, anicteric ENT: +hard of hearing, normal inspection external ears, nose, mucous membranes mildly dry Neck: supple, trachea midline Lungs: clear, no respiratory distress, no wheezing/rhonchi/rales CV: RRR, + murmur, trace pretibial edema Abd: normal BS, soft, non-tender Ext: no cyanosis, no calf tenderness Neuro: A&O x 3, very pleasant and enthusiastic; facial sensation is intact and symmetric, +slight left mouth drooping noted however able to smile and frown without noted abnormality, ?unsure of baseline, soft palate elevates symmetrically, no dysarthria, shoulder shrug intact, tongue is midline, normal movement, no fasciculations, Left arm 5/5 strength, left leg 4/5 strength, right arm 5/5 strength, right leg 5/5 strength Skin: warm, dry Principal Diagnosis Stroke-like symptoms: Elevated troponin: Carotid arterial disease: DM2 (diabetes mellitus, type 2): Aortic stenosis: Chronic diastolic heart failure: HTN (hypertension): HLD (hyperlipidemia): CKD (chronic kidney disease), stage III: Hypothyroidism: Discharge Exam General- No acute distress Head- atraumatic Eyes- PERRL, EOMI, ENT- oropharynx clear Neck- supple, no JVD Lungs- clear to auscultation Heart- regular rhythm; +murmur Abdomen- normal bowel sounds, soft, nontender Extremities- no calf tenderness Neuro- alert, oriented x 3; PERRL, EOMI; no facial palsy; no dysarthria Skin- warm & dry Discharge Data Allergies Allergy/AdvReac Type Severity Reaction Status Date / Time No Known Allergies Allergy Unknown Verified 06/11/22 22:06 Consultations 07/26/22 12:45 ED Decision to Admit Stat 07/26/22 15:25 Consult Cardiology Routine Consult Neurology Routine Ordered Studies 07/26/22 10:47 CT head/brain wo con Stat 07/26/22 13:09 MR brain wo con Routine Laboratory Results WBC 8.82 K/ul (4.8-10.8) 07/29/22 07:54 RBC 4.20 M/uL (4.63-6.08) L 07/29/22 07:54 Hgb 12.7 g/dl (14.0-18.0) L 07/29/22 07:54 Hct 37.5 % (40.1-51.0) L 07/29/22 07:54 MCV 89.3 fL (80.0-100.0) 07/29/22 07:54 MCH 30.2 pg (25.0-34.0) 07/29/22 07:54 MCHC 33.9 g/dL (32.0-36.0) 07/29/22 07:54 RDW Std Deviation 47.3 fL (36.4-46.3) H 07/29/22 07:54 RDW Coeff of Rember[place] 14.6 % (11.5-14.5) H 07/29/22 07:54 Plt Count 237 K/uL (130-400) 07/29/22 07:54 MPV 11.4 fL (9.4-12.4) 07/29/22 07:54 Immature Gran % (Auto) 0.3 % 07/28/22 04:42 Neut % (Auto) 63.0 % 07/28/22 04:42 Lymph % (Auto) 26.0 % 07/28/22 04:42 [place] % (Auto) 7.5 % 07/28/22 04:42 Eos % (Auto) 2.4 % 07/28/22 04:42 Baso % (Auto) 0.8 % 07/28/22 04:42 Neut # (Auto) 5.41 K/uL (1.4-6.5) 07/28/22 04:42 Lymph # (Auto) 2.23 K/uL (1.2-3.4) 07/28/22 04:42 [place] # (Auto) 0.64 K/uL (0.24-0.82) 07/28/22 04:42 Eos # (Auto) 0.21 K/uL (0-0.50) 07/28/22 04:42 Baso # (Auto) 0.07 K/uL (0-0.2) 07/28/22 04:42 Immature Gran # (Auto) 0.03 K/uL (0.00-0.02) H 07/28/22 04:42 Sodium 140 mmol/L (136-145) 07/29/22 07:54 Potassium 3.8 mmol/L (3.5-5.1) 07/29/22 07:54 Chloride 108 mmol/L (98-107) H 07/29/22 07:54 Carbon Dioxide 23 mmol/L (21-32) 07/29/22 07:54 Anion Gap 9 (3-11) 07/29/22 07:54 BUN 28 mg/dl (6-23) H 07/29/22 07:54 Creatinine 1.45 mg/dl (0.6-1.4) H 07/29/22 07:54 Est Cr Clr Drug Dosing 35.7 ml/min 07/29/22 07:54 Est GFR ( Amer) 49.1 ml/min 07/29/22 07:54 Est GFR (Non-Af Amer) 42.4 ml/min 07/29/22 07:54 BUN/Creatinine Ratio 19.3 (10-20) 07/29/22 07:54 Glucose 146 mg/dl (70-99(Fasting)) H 07/29/22 07:54 POC Glucose 122 mg/dl (70-99) H 07/30/22 11:39 Estimat Average Glucose 148 mg/dl 07/27/22 03:52 Hemoglobin A1c 6.8 % (4.5-5.6) H 07/27/22 03:52 Calcium 9.1 mg/dl (8.5-10.1) 07/29/22 07:54 Total Bilirubin 1.2 mg/dl (0.2-1.0) H 07/26/22 10:31 AST 17 U/L (13-39) 07/26/22 10:31 ALT 12 U/L (7-52) 07/26/22 10:31 Alkaline Phosphatase 88 U/L (34-104) 07/26/22 10:31 Troponin I High Sens 343.9 pg/ml (0-20) H* 07/27/22 03:52 Total Protein 7.5 gm/dl (6.0-8.3) 07/26/22 10:31 Albumin 3.3 gm/dl (3.4-5.0) L 07/26/22 10:31 Globulin 4.2 gm/dl (2.5-4.0) H 07/26/22 10:31 Albumin/Globulin Ratio 0.8 (0.9-2) L 07/26/22 10:31 Triglycerides 83 mg/dl (0-150) 07/27/22 03:52 Cholesterol 109 mg/dl (0-200) 07/27/22 03:52 LDL Cholesterol, Calc 54 mg/dl 07/27/22 03:52 VLDL Cholesterol, Calc 17 mg/dl (0-30) 07/27/22 03:52 HDL Cholesterol 38 mg/dl 07/27/22 03:52 Cholesterol/HDL Ratio 2.9 (0-5) 07/27/22 03:52 TSH 8.624 uIu/ml (0.300-4.500) H 07/26/22 10:31 Free T4 1.03 ng/dl (0.61-1.60) 07/26/22 10:31 Urine Color Yellow 07/26/22 11:58 Urine Appearance Clear (Clear) 07/26/22 11:58 Urine pH 5.0 (4.5-7.5) 07/26/22 11:58 Ur Specific [place] 1.010 (1.000-1.030) 07/26/22 11:58 Urine Protein Negative (Negative) 07/26/22 11:58 Urine Glucose (UA) Negative (Negative) 07/26/22 11:58 Urine Ketones Negative (Negative) 07/26/22 11:58 Urine Blood Negative (Negative) 07/26/22 11:58 Urine Nitrite Negative (Negative) 07/26/22 11:58 Urine Bilirubin Negative (Negative) 07/26/22 11:58 Urine Urobilinogen Negative (Negative) 07/26/22 11:58 Ur Leukocyte Esterase Negative (Negative) 07/26/22 11:58 SARS-CoV-2, RNA, NAAT NEGATIVE (NEGATIVE) 07/26/22 12:[address] 07/26/22 10:[address] DOSE: 477.89 mGycm HISTORY: weakness TECHNIQUE: Multiaxial CT images of the head were performed without the use of intravenous contrast. Automated exposure control was utilized for this study. A dose lowering technique was utilized adhering to the principles of ALARA. Comparison: Head CT 06/11/2022. Findings: Small fluid level within the left sphenoid sinus. The mastoid air cells appear clear. The calvarium and skull base are intact. There is no mass, hematoma, midline shift, acute infarct. White matter hypodensity is nonspecific but suggestive of microvascular ischemic change. The ventricles and sulci demonstrate mild age-related involutional changes. 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 Impression: No significant change compared to the prior study. No acute intracranial abnormality. ACT 112: Negative or not required by law. Electronically signed by: Hernesto Allen M.D. 07/26/2022 11:40 AM Brain MRI 07/26/22 13:09 MR brain wo con CLINICAL HISTORY: stroke like symptoms TECHNIQUE: Multiplanar and multisequence MR images of the brain were obtained without intravenous contrast. Comparison: Comparison is made to MRI brain 06/21/2022 FINDINGS: No abnormal restricted diffusion is identified. Extensive white matter T2 hyperintensities are seen, similar in extent to prior exam. The ventricular system is normal in appearance. No mass is seen. There is no mass effect or midline shift. There is no evidence of acute intraparenchymal hemorrhage. No extra axial fluid collections are seen. The corpus callosum, pituitary gland, and cerebellar tonsils appear grossly unremarkable. Flow voids of the major intracranial arterial vessels are identified. The imaged portions of the paranasal sinuses, mastoid air cells, and orbits are unremarkable. IMPRESSION: 1. No acute abnormality and in particular no evidence of acute infarct. 2. Redemonstration of extensive T2 white matter hyperintensity compatible with chronic microvascular disease. ACT 112: Negative or not required by law. Electronically signed by: Estrada Andujar M.D. 07/26/2022 3:01 PM Chest X-Ray 07/29/22 10:26 XR chest 1V portable HISTORY: 89 years-old Male f/u acute shortness of breath COMPARISON: 07/28/2022, 07/26/2022 TECHNIQUE: AP view of the chest FINDINGS: Cardiac silhouette is enlarged. Atherosclerosis of the aorta. No pneumothorax. Trace pleural effusions with persistent bibasilar opacities. Pulmonary vascular congestion with mildly decreased interstitial coarsening. Degenerative changes of the shoulders and spine. IMPRESSION: 1. Cardiomegaly with mildly improved pulmonary edema. 2. Trace pleural effusions with mild persistent bibasilar opacities. ACT 112: Negative or not required by law. The above report was generated using voice recognition software. It may contain grammatical, syntax or spelling errors. Electronically signed by: Roque Brink M.D. 07/29/2022 11:13 AM Hospital Course (1) Stroke-like symptoms: Patient is 89 y/o M with TIA, PMH HTN, HLD, DM II, aortic stenosis, carotid artery disease, chronic diastolic heart failure, CKD III, hypothyroidism, BPH presented to ER with c/o 2 days ago awoke with lightheadedness, leg weakness, feeling cold. Today PCP office difficulty getting up out of chair and thought to have left sided weakness and facial droop Symptoms possible related to TIA CT head showed no acute intracranial abnormality. MRI head showed no acute abnormality and in particular no evidence of acute infarct. Echo showed left ventricular systolic function is moderate to severely dilated 06/11/22: CTA neck: 75% stenosis distal right common carotid artery, 60-70% stenosis proximal right internal carotid artery, 50% stenosis distal left common carotid artery, 50% stenosis proximal left internal carotid artery Neuro on board recommended to continue aspirin and statin Continue PT/OT eval (2) Elevated troponin: High sensitivity Troponin: 453, then trending down to 343 Likely due to demand ischemia in the setting of LV dysfunction and severe . ECHO showed left ventricular systolic function is moderate to severely dilated with EF 30 to 35% Denies any chest pain Cardiology on board Continue statin and aspirin (3) Carotid arterial disease: Known carotid artery disease. Previously asymptomatic Right internal carotid artery stenosis 60-70%. Left internal carotid artery stenosis 50% Was recommended to have repeat carotid ultrasound in 6 months, with no acute intervention recommended by vascular surgery previously in 06/2022 Continue aspirin and statin (4) DM2 (diabetes mellitus, type 2): Most recent HbA1c: 6.8 in 07/27 Continue to hold metformin, glipizide Novolog sliding scale per protocol Continue monitor BS (5) Aortic stenosis: Echo showed severe calcific aortic valve stenosis (6) Chronic diastolic heart failure: CXR showed cardiomegaly with mildly improved pulmonary edema. ECHO showed left ventricular systolic function is moderate to severely dilated with EF 30 to 35% Continue lasix on fri, fri, schedule Clinically improves (7) HTN (hypertension): Continue furosemide on Friday, Friday, Friday stable (8) HLD (hyperlipidemia): Continue atorvastatin (9) CKD (chronic kidney disease), stage III: Cr: 1.4 today . Baseline 1.1-1.3 Avoid nephrotoxic agents when possible Continue monitor BMP (10) Hypothyroidism: TSH 8.6 Currently on levothyroxine 50mcg, will increase it Check TSH in 4 to 6 weeks DVT Prophylaxis Heparin SQ CODE status DNR/DNI Total Time Total Time Spent Total Time Spent (In Minutes): 35 minutes Discharge Plan Discharge Items Patient Disposition: Home - Home Health Services Reason For Visit: STROKE LIKE SYMPTOMS Discharge Diagnosis: Stroke-like symptoms: Elevated troponin: Carotid arterial disease: DM2 (diabetes mellitus, type 2): Aortic stenosis: Chronic diastolic heart failure: HTN (hypertension): HLD (hyperlipidemia): CKD (chronic kidney disease), stage III: Hypothyroidism: Activity: Resume your previous activity Non-emergency contact: Primary Care Provider, Chief Operations Officer and Neurologist Call non-emergency contact if: you have any medication questions and your symptoms worsen Follow-up/Referrals: Jacquelyn Mcrae PA-C [Physician Uniform Attendant] - (Date & Time 08/20/2022 11:20 AM Provider Jacquelyn Mcrae PA-C Department Neurology [facility] ) Jaylan Lara MD [Primary Care Provider] - 08/01/22 10:00 am (Date & Time 08/01/2022 10:00 AM Provider Keerthi Astudillo MD Department Family Medicine [facility] ) Diet: Heart Healthy Addtl Attending Provider Instructions: Follow up with your primary care provider 08/01/2022 @ 10:00 AM Keerthi Astudillo MD Department Family Medicine [facility] Follow up with neurology outpatient ( Office will call you for the appointment) Follow up with cardiology outpatient Repeat Carotid ultrasound in 3 months as per Vascular surgery Check TSH to monitor your thyroid function in 4 to 6 weeks CHF Discharge Instructions Call your Primary Care doctor if any of the following symptoms or problems start or get worse: Shortness of breath or difficulty breathing Wake up at night short of breath Chest pain Cough Swelling of your hands, feet, or legs More fatigued or tired with your normal activity Palpitations - sudden fast heart beats WEIGHT Weigh yourself every morning after using the bathroom. Use the same scale. Wear the same amount of clothing. Write your weight down on a chart. Call your Primary Care doctor if you gain more than 2-3 pounds in 1-2 days. MEDICATIONS Use this discharge instruction sheet for medication instructions. Take your medications at the time your doctor ordered. Do not skip a dose of your medicines. If you miss a dose of medicine, take it as soon as possible, but DO NOT DOUBLE A DOSE. Read your medicine information when you get home. Know all of the side effects of your medicine. If in doubt, ask your pharmacist Call your Primary Care doctor's office if you have any side effects. Be sure all of your doctors know what medicine and herbs you take (including cold, flu, and herbal medicine). Take the following with you to your follow-up doctor appointments: Weight Chart Medication List List of questions Do not drink excessive alcohol, beer or wine. Pending Studies at Discharge: No Stand-Alone Forms: My LEY[employer], Smoking Cessation Medications and DC Order Prescriptions: New levothyroxine [Synthroid] 125 mcg Tablet 62.5 mcg PO DAILYBB 30 Days Qty: 15 0RF Continued atorvastatin 40 mg tablet 40 mg PO QAM metformin 500 mg tablet 500 mg PO BIDM glipizide 2.5 mg tablet extended release 24hr 2.5 mg PO QAM furosemide 20 mg tablet 20 mg PO MOWEFR finasteride 5 mg tablet 5 mg PO DAILY potassium chloride 10 mEq tablet,ER particles/crystals 10 meq PO MOWEFR folic acid 0.8 mg Capsule 0.8 mg PO DAILY aspirin 81 mg Tablet,Delayed Release (Dr/Ec) 81 mg PO QAM 30 Days Qty: 30 2RF Rx Instructions: Always take with a full stomach. Discontinued levothyroxine 50 mcg tablet 50 mcg PO QAM Discharge Orders: Discharge Order (Routine); Ordered 07/30/22 Ordered By: Satish Kohler/Other Patient Handouts: High Blood Sugar (Hyperglycemia), Hypoglycemia (Low Blood Sugar), Managing Type 2 Diabetes Admission Data Admit Date/Time: 07/26/22 12:44 Attending Provider: Satish French Admit Provider: Tran Manzano Primary Care Provider: Jaylan Lara Other Providers: Tran Manzano ; Alin Denney ; Daniel Carrion ; Tico Bernal [facility] [place] Other Interventions: Discharge Summary Assessment (RN) Last Done: 07/30/22 13:14
[2022-07-31] MEDS ORDERED: LEVOTHYROXINE SODIUM 50 MCG TABLET PO SCH (06:30)
[2022-07-31] MEDS ORDERED: LEVOTHYROXINE SODIUM 25 MCG TABLET PO SCH (06:30)
[2022-07-31] MEDS ORDERED: LEVOTHYROXINE SODIUM 125 MCG TABLET PO SCH ×2 (06:30)
== END 2022-07-30 15:50 | disposition home health service (06) | DRG 69 ==
LOC: ED 10:25 → SUATTDRO 12:44 → 4W 12:44
DX: E03.9 Hypothyroidism, unspecified; I50.32 Chronic diastolic (congestive) heart failure; E11.22 Type 2 diabetes mellitus with diabetic chronic kidney disease; G45.9 Transient cerebral ischemic attack, unspecified; E78.5 Hyperlipidemia, unspecified; I65.23 Occlusion and stenosis of bilateral carotid arteries; I13.0 Hypertensive heart and chronic kidney disease with heart failure and stage 1 through stage 4 chronic kidney disease, or unspecified chronic kidney disease; Z79.890 Hormone replacement therapy; N40.0 Benign prostatic hyperplasia without lower urinary tract symptoms; Z79.899 Other long term (current) drug therapy; I24.8 Other forms of acute ischemic heart disease; N18.30 Chronic kidney disease, stage 3 unspecified; Z66 Do not resuscitate; Z79.84 Long term (current) use of oral hypoglycemic drugs; I35.0 Nonrheumatic aortic (valve) stenosis; Z79.82 Long term (current) use of aspirin